=== PATIENT | female | born 1955 | race Caucasian/White ===

== ENCOUNTER 2022-01-15 16:43 | Outpatient (CLI) | payer MEDICARE, SELFPAY ==
[2022-01-15 10:18] LABS: Albumin* 4.5 g/dL (3.3-5.0)
[2022-01-15 10:19] LABS: Chloride* 101 mmol/L (96-114); Potassium* 4.2 mmol/L (3.6-5.1); Sodium* 140 mmol/L (135-149)
[2022-01-15 10:21] LABS: Aspartate Amino Transferase* 29 U/L (12-35); Bilirubin Total* 1.3 mg/dL (0.1-1.5); Blood Urea Nitrogen* 21 mg/dL (7-30); Carbon Dioxide* 31 mmol/L (20-32); Cholesterol* 202 mg/dL (90-199); Creatinine* 0.6 mg/dL (0.5-1.5); Estimated Glomerular Filt Rate 98 ml/min; Glucose* 116 mg/dL (60-115); Total Protein* 7.2 g/dL (6.0-8.3)
[2022-01-15 10:22] LABS: Alanine Aminotransferase* 23 U/L (4-35); Alkaline Phosphatase* 86 U/L (40-150); Calcium* 9.6 mg/dL (8.4-10.6); HDL Cholesterol* 62 mg/dL (>=50); LDL Cholesterol Calculated 118 mg/dL (<100); Triglycerides* 108 mg/dL (40-149)
[2022-01-15 10:28] LABS: Vitamin D 25 Hydroxy* 50 ng/mL (30-80)
== END 2022-01-15 16:44 | disposition home or self-care (01) ==
PROVIDERS: PCP Family Medicine; Visit Provider Family Medicine
DX: Z01.419 Encounter for gynecological examination (general) (routine) without abnormal findings (principal); E55.9 Vitamin D deficiency, unspecified; E78.5 Hyperlipidemia, unspecified; I10 Essential (primary) hypertension
CPT/HCPCS: 80053; 80061; 82306

== ENCOUNTER 2022-02-26 08:32 | Day surgery (SDC) | payer MEDICARE, SELFPAY ==
[2022-02-26] VITALS (11 sets, daily range): BP systolic 127–155; BP diastolic 79–90; PULSE 50–67; RESP 16; TEMP 36.1–36.4; O2SAT 95–100; BMI 29.0
[2022-02-26] MEDS: BUPIVACAINE 0.5%/EPINEPHRINE 0.9 MG (30.9 ML) INJECTION (06:00)
[2022-02-26] MEDS: LACTATED RINGERS 1000 ML 1,000 ML 100 ML IV (09:00)
[2022-02-26] MEDS: SODIUM CHLORIDE 0.9 % (FLUSH) 10 ML SYRINGE IVF (09:00)
[2022-02-26] MEDS: OXYMETAZOLINE 0.05% NASAL SPRAY 2 SPRAY NOSTRIL-B (09:00)
[2022-02-26] MEDS: COCAINE HCL 4 % 4 ML SOLUTION NOSTRIL-R ×2 (10:09→10:10)
--- NOTE | 2022-02-26 10:30 | SUR.OPER ---
Surgeon reported a tooth implant fell out during surgery. The tooth was located and removed.
[2022-02-26] MEDS: MUPIROCIN 1 GM PACKET 1 APPLIC TOPICAL (10:40)
--- NOTE | 2022-02-26 10:53 | W.ANESCHARGE ---
Anesthesia Charges Start Date/Time Anesthesia Start Date: 02/26/22 Anesthesia Start Time: 09:54 Stop Date/Time Anesthesia Stop Date: 02/26/22 Anesthesia Stop Time: 10:50 Summary Emergency: No
--- NOTE | 2022-02-26 10:55 | W.PM.ENTPROC ---
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 The nose was injected and decongested. I also injected the right upper gingiva. The nose was then inspected and there was a single large polyp extruding from the right middle meatus. This was removed with the assistance of a 0 degree endoscope. I was unable to completely remove all polypoid tissue from the maxillary sinus transnasally. Needlepoint cautery was used to incise the right upper gingiva posterior to the right canine. Dissection was carried down to the face of the right maxillary sinus. The mucosa overlying this was and muscle overlying this was elevated with great care taken to avoid the infraorbital nerve. A trocar is used to enter the cyst maxillary sinus which was quite easy to do. I a bone biter was then used to enlarge the opening. A [place] elevator was then used to further remove mucosa from all surfaces of the sinus. There is a large amount of infected and polypoid mucosa. Sinus was cleaned under procedure. There is a very large opening into the nose. The gingival incision was closed with interrupted 4-0 Vicryl sutures. The posterior 3 mm was left open to facilitate drainage. A Merocel pack soaked in Bactroban was placed overlying the middle meatus transnasally. The patient opted well was taken recovery in satisfactory condition. Blood loss during procedure was less than 25 mL. No complications Surgeon: Royce Hull MD
== END 2022-02-26 12:20 | disposition home or self-care (01) ==
PROVIDERS: PCP Family Medicine; Visit Provider Otolaryngology
PROC: (CPT 31231; principal; 2022-02-26 10:30)
DX: J32.0 Chronic maxillary sinusitis (principal); J33.8 Other polyp of sinus
CPT/HCPCS: 31237; 00170; 88305; A9270; J0330; J1100; J2405; J2704; J3010; J7120

== ENCOUNTER 2023-05-04 08:35 | Outpatient (CLI) | payer MEDICARE, SELFPAY ==
--- OUTSIDE RECORDS SUMMARY | 2023-05-09 20:44 | XMS_ITS ---
Author Name Unknown Organization [facility] Address [address] [place] [address] Care Team Providers Care Flexible Nanny Name Role Phone Unavailable Unavailable Unavailable Surgery Details Not on file Complications Check Surgery Details section. Procedure Estimated Blood Loss Check Surgery Details section. Procedure Findings Check Surgery Details section. Procedure Specimens Taken Check Surgery Details section.
--- OUTSIDE RECORDS SUMMARY | 2023-05-09 20:44 | XMS_ITS | Data Portability ---
Author Name Unknown Address [address] [place] [address] Phone [phone] Organization [place] [facility], [employer] Address [address] [place] [address] Assessment Encounter Date Assessment Date Assessment LastModified by Organization Details LastModified Time 08/04/2022 08/04/2022 Informed the patient at this time her diagnosis as detailed down below. The patient was informed of my recommendation of undergoing a phenol and alcohol procedure to the medial border of the right Hallux, however I recommended we wait until she returns from [place]. The patient was agreeable to this and we will re appoint this patient after [place] for the procedure. vishal Not available 08/04/2022 10:16:33 09/03/2022 09/03/2022 Performed a phenol and alcohol procedure to the right and left Hallux nail as previously documented. Patient will be seen in 2 weeks for a recheck and was given after care instructions. Not available 09/03/2022 10:28:04 09/17/2022 09/17/2022 Patient was informed that she has well healing phenol and alcohol procedures and there is no evidence of cardinal signs of infection at this time. She was instructed to continue soaking until resolution of drainage and will be seen on a PRN basis moving forward. Not available 09/17/2022 10:39:25 Plan of Treatment Reminders Order Date Submit Date Provider Last Modified By Organization Details Last Modified Time Details Appointments None record ed. Lab None record ed. Referral None record ed. Procedures None record ed. Surgeries None record ed. Imaging None record ed. Medication Orders None record ed. Patient TargetsNo targets recorded. Patient InstructionsNo instructions recorded. Reason for Referral None Reported. Procedures Surgical History Date Name Laterality Status Provider Name and Address Organization Details Recorded Time NAIL PROCEDURE DR Juarez completed Eliel Bell, DPM [address] [place], [phone], [facility] - [facility] 09/03/2022 10:27:57 Imaging Results None recorded. Procedure Notes None recorded. Medical Equipment None Reported. Allergies No known drug allergies Medications Name Sig Start Date Stop Date Status Note LastModified by Organization Details LastModified Time cyclobenzapr ine 10 mg tablet TAKE 1 TABLET BY MOUTH AT BEDTIME NEEDED FOR MUSCLE SPASM active Not Available Not Available No t Available latanoprost 0.005 % eye drops INSTILL 1 DROP IN RIGHT EYE AT BEDTIME active Not Available Not Available N ot Available gabapentin 600 mg tablet TAKE 1 TABLET BY MOUTH THREE TIMES DAILY active Not Available Not Available Not Available ibuprofen 800 mg tablet active Not Available Not Available Not Available clonazepam 1 mg tablet TAKE 1 TABLET BY MOUTH AT BEDTIME NEEDED FOR RESTLESS LEG SYNDROME active Not Available Not Available No t Available prednisolone acetate 1 % eye drops,suspen monty SHAKE LIQUID AND INSTILL 1 DROP IN LEFT EYE FOUR TIMES DAILY active Not Available Not Available No t Available lisinopril 20 mg-hydrochlo rothiazide 25 mg tablet TAKE 1 TABLET BY MOUTH DAILY active Not Available Not Available Not Available timolol maleate 0.5 % eye drops INSTILL 1 DROP IN BOTH EYES EVERY MORNING active Not Available Not Available No t Available pramipexole 1.5 mg tablet active Not Available Not Available Not Available moxifloxacin 0.5 % eye drops ADMINISTER 1 DROP INTO OPERATIVE EYE FOUR TIMES DAILY STARTING THE DAY BEFORE SURGERY active Not Available Not Available No t Available rosuvastatin 10 mg tablet TAKE 1 TABLET BY MOUTH EVERY DAY active Not Available Not Available No t Available cholecalcife rol (vitamin D3) 50 mcg (2,000 unit) capsule TAKE 1 CAPSULE BY MOUTH EVERY DAY active Not Available Not Available No t Available Osteo Bi-Flex active Not Available Not Available Not Available Flowflex COVID-19 Antigen Home Test kit use as directed active Not Available Not Available No t Available Vitals Date Recorded Body height Body mass index (BMI) Body weight Provider Name and Address Organization Details Last Updated DateTime 08/04/2022 170.18 cm 28.2 kg/m2 86405.63 g JAMSHID Liu - [facility] 08/04/2022 09:58:33 Social History None recorded. Functional Status None recorded. Mental Status None recorded. Family History Nothing Reported. Medical History No medical history recorded. Gynecological HistoryNo gynecological history recorded. Obstetrics History GPAL:G 0 P 0 0 0 0 Past Encounters Encounter ID Performer Location Encounter Start Date Encounter Closed Date Diagnosis/Indication [id number] [facility] [address] [place] [address] [address] [place] [address] 08/04/2022 09:57:48 08/05/2022 09:57:00 Ingrowing nail [id number] Eliel Bell [facility] [address] [place] [address] 09/03/2022 09:48:56 09/03/2022 11:28:28 Ingrowing nail [id number] Eliel Bell [facility] [address] [place] [address] 09/17/2022 10:05:12 09/20/2022 10:20:21 Ingrowing nail Health Concerns Section Related Observation LastModified by Organization Detai ls LastModified Time None Recorded Concern Status LastModified by Organization Details LastModified Time None Recorded Advance Directives Directive None Recorded Payers Encounter Date Sequence Insurance Name Policy Number Policy [place] Covered Member ID [place]itting[place] Member ID Guarantor Name 09/17/2022 1 [place] [employer] Kate K Silvanoen [id number] Kate K Grazyna 09/17/2022 2 [employer] (MEDICARE SUPPLEMENT) Kate Geronimo [id number] Kate K Grazyna 09/03/2022 1 [place] [employer] Kate K Nordhausen [id number] Kate K Nordhausen 09/03/2022 2 [employer] (MEDICARE SUPPLEMENT) Kate Grazyna [id number] Kate K Nordhausen 08/04/2022 1 [place] [employer] Kate Ed Nordhausen [id number] Kate K Nordhausen 08/04/2022 2 [employer] (MEDICARE SUPPLEMENT) Kate Grazyna [id number] Kate Ed Silvanoen Notes Date Note Type Note Provider Name and Address Organization Details Recorded Time 08/04/2022 text/html HPI Notes: Hao chavez is a 66 year old female new patient who presents to clinic today for right great toe pain that has been on and off for about 2 years in duration. The patient mentions that this pain is located on the inside border on the right great toe nail and she denies any history of infection. Patient mentions that she is going to [facility] for a few weeks and is interested in treatment options. Eliel Bell DPM [address] [place] [address], [phone], [facility] 08/04/2022 10:16:37 09/03/2022 text/html HPI Notes: Hao chavez is a 66 year old female established patient who presents today for a phenol and alcohol procedure to the right Hallux nail. Patient was previously informed about the procedure on 08/04/2022 and was instructed to wait until she was back from her [place] vacation. Patient denies any changes to her medical history since last being seen. Eliel Bell DPM [address] [place] [address], [phone], [facility] 09/03/2022 10:28:22 09/17/2022 text/html HPI Notes: Hao chavez is a 66 year old female established patient who presents to clinic today for re evaluation of bilateral phenol and alcohol procedures performed to the bilateral borders of bilateral Hallux digits on 09/03/2022. The patient mentions that she has adhered to the previous recommendations without difficulty and she has noticed significant symptom reduction. Eliel Bell DPM [address] [place] [address], [phone], [facility] 09/17/2022 10:39:29 OBGyn Episode No OBEpisode recorded.
--- OUTSIDE RECORDS SUMMARY | 2023-05-09 20:44 | XMS_ITS | Referral Summary ---
Author Name Unknown Organization [facility] Address [address] [place] [address] Care Team Providers Care Bond Trader Name Role Phone Elsewhere, Pcp Primary Care Provider Unavailabl e Source Comments Patient records contain information from all sites at [facility]. For routine questions regarding patient records, call [phone] during business hours, M-F 8:00 AM - 5:00 PM Central Time. Record requests for emergency care only can be directed to [phone] at any time.[facility] Encounters Date Type Department Care Team Description 03/16/2023 Orders Only Department of Ophthalmology in [place], [place] [address] [place] [address] Mari Olmstead Primary Open-Angle Glaucoma Severe Stage Bilateral (Primary Dx) 03/14/2023 10:45 AM BANK REPRESENTATIVE Procedure visit Department of Ophthalmology in [place], [place] [address] [place] [address] Danial Jeffries M.D., Ph.D. 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 Primary Open-Angle Glaucoma Severe Stage Bilateral (Primary Dx) 03/14/2023 8:30 AM BANK REPRESENTATIVE Ancillary Procedure Department of Ophthalmology in [place], [place] [address] [place] [address] Danial Jeffries M.D., Ph.D. Primary Open-Angle Glaucoma Severe Stage Bilateral 03/14/2023 8:00 AM BANK REPRESENTATIVE Ancillary Procedure Department of Ophthalmology in [place], [place] [address] [place] [address] Danial Jeffries M.D., Ph.D. Primary Open-Angle Glaucoma Severe Stage Bilateral 02/24/2023 Clinical Communication Department of Ophthalmology in [place], [place] [address] [place] [address] Danial Jeffries M.D., Ph.D. from Last 3 Months Allergies No known active allergies Medications Medication Sig Dispensed Refills Start Date End Date Status lisinopril-hydroCHLOR Othiazide (PRINZIDE,ZESTORETIC) 20-25 mg per tablet Take 1 tablet by mouth daily. 0 09/17/2016 Active LORazepam (ATIVAN) 1 mg tablet Take 1 tablet by mouth daily. 0 08/13/2015 Active pramipexole (MIRAPEX) 0.5 mg tablet Take 2 tablets by mouth daily. 0 08/13/2015 Active peg 400-propylene glycol, PF, (SYSTANE) 0.4-0.3 % ophthalmic solution Administer 1 drop into both eyes as needed. 0 11/20/2015 Active prednisoLONE acetate (PRED FORTE) 1 % ophthalmic suspension Administer 1 drop into the left eye 4 (four) times a day. Starting 3 days prior to surgery 5 mL 2 11/13/2021 Active Additional Information Patient not taking.Reported on 03/14/2023 cholecalciferol (VITAMIN D3) 50 mcg (2,000 Unit) capsule Take by mouth daily. 0 11/24/2021 Active gabapentin (NEURONTIN) 600 mg tablet Take 600 mg by mouth 3 (three) times a day. 0 11/10/2021 Active clonazePAM (KlonoPIN) 1 mg tablet Take 1 mg by mouth at bedtime as needed. 0 10/06/2021 Active rosuvastatin (CRESTOR) 10 mg tablet Take 10 mg by mouth daily. 0 12/07/2021 Active HYDROcodone-acetamino phen (NORCO) 5-325 mg per tablet 0 01/07/2022 Active prednisoLONE acetate (PRED FORTE) 1 % ophthalmic suspension Administer 1 drop into the left eye 4 (four) times a day. Start 3 days before surgery 10 mL 6 01/29/2022 Active Additional Information Patient not taking.Reported on 10/06/2022 ondansetron ODT (ZOFRAN-ODT) 4 mg disintegrating tablet 4 mg every 8 (eight) hours. 0 02/26/2022 Active oxyCODONE (ROXICODONE) 5 mg immediate release tablet Take 5 mg by mouth every 4 (four) hours as needed. for pain 0 02/26/2022 Active glucosamine/chondr walker A sod (glucosamine-chondroi tin) 1,500-1,200 mg/30 mL liquid 2 tablets. 0 01/15/2022 Active prednisoLONE acetate (PRED FORTE) 1 % ophthalmic suspension Administer 1 drop into the left eye 4 (four) times a day. 15 mL 3 04/21/2022 Active Additional Information Patient not taking.Reported on 10/06/2022 timolol (TIMOPTIC) 0.5 % ophthalmic solution INSTILL 1 DROP IN BOTH EYES EVERY MORNING 10 mL 3 05/04/2022 Active Additional Information Patient taking differently: right eye, Reported on 05/17/2022 moxifloxacin (VIGAMOX) 0.5 % ophthalmic solution Administer 1 drop into the left eye 4 (four) times a day. 1 drop four times a day to the operative eye starting the day before surgery 3 mL 1 05/17/2022 Active Additional Information Patient not taking.Reported on 10/06/2022 latanoprost (XALATAN) 0.005 % ophthalmic solution INSTILL 1 DROP IN BOTH EYES AT BEDTIME 10 mL 11 12/28/2022 Active dorzolamide-timoloL (COSOPT) 22.3-6.8 mg/mL ophthalmic solution Administer 1 drop into both eyes 2 (two) times a day. 15 mL 3 03/14/2023 03/13/2024 Active Active Problems Problem Noted Date Diagnosed Date Age Related Nuclear Cataract Right Eye 0 Overview: Added automatically from request for surgery [id number] Age Related Nuclear Cataract Left Eye 05/28/2019 Overview: Added automatically from request for surgery [id number] Hypertension Essential Primary 09/19/2017 Hypercholesterolemia 09/19/2017 Restless Leg Syndrome 09/19/2017 Pain Low Back Chronic 09/19/2017 Primary Open-Angle Glaucoma Severe Stage Bilater al 09/15/2017 Anxiety Generalized Disorder Social History Tobacco Use Types Packs/Day Years Used Date Smoking Tobacco: Former Smokeless Tobacco: Never Tobacco Cessation:Counseling Given: Not Answered Alcohol Use Standard Drinks/Week Comments Yes 4 (1 standard drink = 0.6 oz pur e alcohol) Social Connection and Isolation Panel [NHANES] A nswer Date Recorded In a typical week, how many times do you talk on the phone with family, friends, or neighbors? Twice a week 07/09/19 20 How often do you get togethe r with friends or relatives? Twice a week 07/09/2019 How often do you attend [facility] or [facility] services? 1 to 4 times per year 07/09/2019 Do you belong to any clubs o r organizations such as yazidi groups, unions, fraternal or athletic groups, or school groups? No 07/09/2019 How often do you attend meet ings of the clubs or organizations you belong to? Patient declined 07/09/2019 Are you , , di vorced, , never , or living with a partner? Never 07/09/2019 AUDIT-C Answer Date Recorded Q1: How often do you have a drink containing alc ohol? 2-3 times a week 07/09/2019 Q2: How many drinks containi ng alcohol do you have on a typical day when you are drinking? 1 or 2 07/09/2019 Q3: How often do you have si x or more drinks on one occasion? Less than monthly 07/09/2019 [facility] Occupat ional Health - Occupational Stress Questionnaire Answer Date Recorded Do you feel stress - tense, restless, nervous, or anxious, or unable to sleep at night because your mind is troubled all the time - these days? Only a little 07/09/2019 Exercise Vital Sign Answer Date Recorde d On average, how many days pe r week do you engage in moderate to strenuous exercise (like a brisk walk)? 5 days 07/09/2019 On average, how many minutes do you engage in exercise at this level? 50 min 07/09/2019 Hunger Vital Sign Answer Date Recorded Within the past 12 months, y ou worried that your food would run out before you got the money to buy more. Never true 07/09/19 20 Within the past 12 months, t he food you bought just didn't last and you didn't have money to get more. Never true 07/09/2019 PRAPARE - Transportation Answer Date Re corded In the past 12 months, has l ack of transportation kept you from medical appointments or from getting medications? No 01/2020 In the past 12 months, has l ack of transportation kept you from meetings, work, or from getting things needed for daily living? No 07/09/2019 Nutrition Answer Date Recorded Nutrition: EVOO Fat Source Unknown 07/12 Nutrition: Servings of Fruits/Vegetables per Day Not on file 07/12/2022 Dental Answer Date Recorded Dental: Regular Dentist Unknown 07/13/19 Education Answer Date Recorded What is the highest level of school you have completed or the highest degree you have received? GED or equivalent 01/2020 Sex and Gender Information Value Date Recorded Sex Assigned at Female 09/29/2017 12:58 PM CDT Gender Identity Female 09/29/2017 12:58 PM CDT Sexual Orientation Lesbian or Griffiths 09/29/2017 12 :58 PM CDT Last Filed Vital Signs Vital Sign Reading Time Taken Comments Blood Pressure 134/85 01/20/2023 7:52 AM CDT Pulse 60 01/20/2023 7:52 AM CDT Temperature 36.9 ??C (98.4 ??F) 04/20/2022 8:52 AM CS T Respiratory Rate 15 04/20/2022 11:10 AM BANK REPRESENTATIVE Oxygen Saturation 96% 04/20/2022 11:10 AM BANK REPRESENTATIVE Inhaled Oxygen Concentration - - Weight 82.1 kg (181 lb) 01/20/2023 7:52 AM CDT Height 168.2 cm (5' 6.22) 01/20/2023 7:52 AM CD T Body Mass Index 29.02 01/20/2023 7:52 AM CDT Plan of Treatment Upcoming Encounters Date Type Department Care Team (Late st Contact Info) Description 07/06/2023 3:00 PM BANK REPRESENTATIVE Ancillary Procedure Department of Ophthalmology in [place], [place] [address] [place] [phone] Danial Jeffries M.D., Ph.D. [address] [place] [phone] 07/06/2023 3:30 PM BANK REPRESENTATIVE Office Visit Department of Ophthalmology in [place], [place] [address] [place] [phone] Danial Jeffries M.D., Ph.D. [address] [place] [phone] Medical Devices Implanted Type Area Ocean Freight Forwarder Device Identifier Shelf Expiration Date Model / Serial / Lot Michelle Wooten 9 - [id number] - [id number] Implanted:Qty : 1 on 04/20/2022 by Danial Jeffries M.D., Ph.D. at [facility] Bone or Tissue Left: Eye [employer] (Prev. Tissue [employer]) 08/11/2023 [id number] / [id number] / Hardware E.G. Pins/Screws/R ods-08/24/1989 Implanted: (Quantity not on file) Hardware e.g. pins/screws /rods Right: Shoulder Agustín Saldana 350 - [id number] - [id number] Implanted:Qty : 1 on 04/20/2022 by Danial Jeffries M.D., Ph.D. at [facility] Ocular (Eye) Implant Left: Eye [employer] (Previously AMARI) 10/21/2023 [id number] / [id number] / Lens Acr Sa60at Ant +18.5d - [id number] - [id number] Implanted:Qty : 1 on 07/03/2019 by Danial Jeffries M.D., Ph.D. at [facility] Ocular Lens Right: Eye Dinesh Aorato 01/30/2024 SA60AT.18 5 / [id number] / Lens Acr Sa60at Ant +20.5d - [id number] - [id number] Implanted:Qty : 1 on 09/26/2019 by Danial Jeffries M.D., Ph.D. at [facility] Gregorio/Gonda Ocular Lens [employer] 01/30/2024 SA60AT.20 5 / [id number] / Procedures Procedure Name Priority Date/Time Associated Diagnosis Comments YAG CAPSULOTOMY - OS - LEFT EYE Routine 03/14/2023 10:00 AM BANK REPRESENTATIVE Posterior Subcapsular Polar Age Related Cataract Left Eye OPHTHALMOLOGY IMAGE EXAM Routine 03/14/2023 8:05 AM BANK REPRESENTATIVE AUTOMATED VF - EXTENDED - OU - BOTH EYES Routine 03/14/2023 7:58 AM BANK REPRESENTATIVE Primary Open-Angle Glaucoma Severe Stage Bilateral AUTOMATED VF - EXTENDED - OU - BOTH EYES Routine 03/14/2023 7:41 AM BANK REPRESENTATIVE Primary Open-Angle Glaucoma Severe Stage Bilateral OPHTHALMOLOGY IMAGE EXAM Routine 03/14/2023 7:40 AM BANK REPRESENTATIVE from Last 3 Months Results * Yag Capsulotomy - OS - Left Eye (03/14/2023 10:00 AM BANK REPRESENTATIVE) Narrative OPHTHALMOLGY NON-IMAGING ORDERS - 03/14/2023 10:00 AM BANK REPRESENTATIVE Time Out Confirmed correct patient, procedure, site, and patient consented. Procedure Procedure was PI. Topical anesthesia was used. Laser Information The type of laser was yag. Total spots was 14. The energy was 1.50 millijoules. Post-op The patient tolerated the procedure well. There were no complications. The patient received written and verbal post procedure care education. Danial Jeffries M.D., Ph.D. [facility] OPHTHALMOLGY NON-IMAGING ORDERS * Visual Ariza (VF)-Ophthalmology Image Exam (03/14/2023 8:05 AM BANK REPRESENTATIVE) Only the most recent of2 resultswithin the time period is included. 03/14/2023 8:02 AM BANK REPRESENTATIVE Narrative IIMS - 03/14/2023 8:18 AM BANK REPRESENTATIVE This order has been created and auto-finalized to support the import of images acquired without order. The clinical documentation to support these images can be found on the encounter that produced images. Provider Not In System IMG NON RAD IMAGI NG PROCEDURES Performing Organization Address [facility] [[email or web address] de Phone Number IIMS NA * Automated VF - Extended - OU - Both Eyes (03/14/2023 7:58 AM BANK REPRESENTATIVE) Narrative OPHTHALMOLOGY IMAGING EXAM - 03/14/2023 9:33 AM BANK REPRESENTATIVE Right Eye Automated visual field device used was Zeiss. Strategy was RADHA. Threshold was 10-2. Eyelid was untaped. Left Eye Automated visual field device used was Zeiss. Strategy was RADHA. Threshold was 10-2. Eyelid was untaped. Notes See note from today. Danial Jeffries M.D., Ph.D. OPH VISUAL F IELD Performing Organization Address [facility] de Phone Number OPHTHALMOLOGY IMAGING EXAM * Automated VF - Extended - OU - Both Eyes (03/14/2023 7:41 AM BANK REPRESENTATIVE) Narrative OPHTHALMOLOGY IMAGING EXAM - 03/14/2023 9:33 AM BANK REPRESENTATIVE Right Eye Automated visual field device used was Zeiss. Strategy was RADHA. Threshold was 24-2. Eyelid was untaped. Left Eye Automated visual field device used was Zeiss. Strategy was RADHA. Threshold was 24-2. Eyelid was untaped. Notes See note from today. Danial Jeffries M.D., Ph.D. OPHTH VISUAL F IELD Performing Organization Address [facility] [[email or web address]] de Phone Number OPHTHALMOLOGY IMAGING EXAM from Last 3 Months Advance Directives For more information, please contact: [phone] Documents on File Type Date Recorded Patient Manager Engine Expl anation Advance Directives 05/20/2022 8:59 AM [facility] Care Teams Bond Trader Relationship Specialty Start Date End Date Elsewhere, Pcp PCP - General Internal Medicine 04/20/22
--- OUTSIDE RECORDS SUMMARY | 2023-05-09 20:44 | XMS_ITS | Clinical Summary ---
Author Name Unknown Organization [facility] Address [address] [place] [address] Care Team Providers Care Lifestyle Consultant Name Role Phone Elsewhere, Pcp Primary Care Provider Unavailabl e Source Comments Patient records contain information from all sites at [facility]. For routine questions regarding patient records, call [phone] during business hours, M-F 8:00 AM - 5:00 PM Central Time. Record requests for emergency care only can be directed to [phone] at any time.[facility] Allergies No known active allergies Medications Medication [...] Overview: Added automatically from request for surgery [id number] Age Related Nuclear Cataract Left Eye 05/28/2019 Overview: Added automatically from request for surgery [id number] Hypertension Essential Primary 09/19/2017 Hypercholesterolemia 09/19/2017 Restless Leg Syndrome 09/19/2017 Pain Low Back Chronic 09/19/2017 Primary Open-Angle Glaucoma Severe Stage Bilater al 09/15/2017 Anxiety Generalized Disorder Encounters Date Type Department Care Team Description 03/16/2023 Orders Only Department of Ophthalmology in [place], [place] [address] [place] [phone] Mari Olmstead Primary Open-Angle Glaucoma Severe Stage Bilateral (Primary Dx) 03/14/2023 10:45 AM PAINTER AND BODY MECHANIC APPRENTICE Procedure visit Department of Ophthalmology in [place], [place] [address] [place] [phone] Danial Jeffries M.D., Ph.D. 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 Primary Open-Angle Glaucoma Severe Stage Bilateral (Primary Dx) 03/14/2023 8:30 AM PAINTER AND BODY MECHANIC APPRENTICE Ancillary Procedure Department of Ophthalmology in [place], [place] [address] [place] [phone] Danial Jeffries M.D., Ph.D. Primary Open-Angle Glaucoma Severe Stage Bilateral 03/14/2023 8:05 AM PAINTER AND BODY MECHANIC APPRENTICE Ancillary Procedure Department of Ophthalmology 03/14/2023 8:00 AM PAINTER AND BODY MECHANIC APPRENTICE Ancillary Procedure Department of Ophthalmology in [place], [place] [address] [place] [phone] Danial Jeffries M.D., Ph.D. 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 from Last 3 Months Family History Medical History Relation Name Comments Cataracts Father Amblyopia Neg Hx Blindness Neg Hx Glaucoma Neg Hx Macular degeneration Neg Hx Retinal degeneration Neg Hx Retinal detachment Neg Hx Strabismus Neg Hx Relation Name Status Comments Father Social History Tobacco Use Types Packs/Day Years [...] week 07/09/2019 How often do you attend chur ch or mandaeism services? 1 to 4 times per year 07/09/2019 Do you belong to any clubs o r organizations such as amish groups, unions, fraternal or athletic groups, or [...] on one occasion? Less than monthly 07/09/2019 [facility] [place] [facility] - Occupational Stress [...] T Respiratory Rate 15 04/20/2022 11:10 AM PAINTER AND BODY MECHANIC APPRENTICE Oxygen Saturation 96% 04/20/2022 11:10 AM PAINTER AND BODY MECHANIC APPRENTICE Inhaled Oxygen Concentration - - Weight 82.1 kg (181 lb) 01/20/2023 7:52 AM CDT Height 168.2 cm (5' 6.22) 01/20/2023 7:52 AM CD T Body Mass Index 29.02 01/20/2023 7:52 AM CDT Plan of Treatment Upcoming Encounters Date Type Department Care Team (Late st Contact Info) Description 07/06/2023 3:00 PM PAINTER AND BODY MECHANIC APPRENTICE Ancillary Procedure Department of Ophthalmology in [place], [place] [address] [place] [phone] Danial Jeffries M.D., Ph.D. [address] [place] [phone] 07/06/2023 3:30 PM PAINTER AND BODY MECHANIC APPRENTICE Office Visit Department of Ophthalmology in [place], [place] [address] [place] [phone] Danial Jeffries M.D., Ph.D. [address] [place] [phone] Health Maintenance Due Date Last Done Comments Bone Density Scan (Osteoporo sis Screen) 1953 CT Colonography 1953 Cologuard 1953 Colonoscopy 1953 Colorectal Cancer Screening 1953 Creatinine Level (Kidney Fun ction Test) 1953 FIT 1953 Fasting Glucose for Diabetes Screening 1953 Hepatitis C Screening 1953 Lipid (Cholesterol) Screening 1953 Mammogram 1953 Potassium Level 1953 Sodium Level 1953 Zoster Vaccines (2 of 3) 06/10/2015 04/15/2015 Pneumococcal vaccine (65+ ye ars) (2 of 2 - PPSV23 or PCV20) 10/17/2021 10/17/2020 Depression Screening (Annual PHQ-2) 05/02/2022 Fall Risk Screen (Annual) 05/02/2022 COVID-19 Vaccine (5 - 2022-2 4 season) 2022 10/13/2021, 05/21/2021, 07/29/2020, Additional history exists Office Visit for Blood Press ure Check / Re-check 01/21/2024 01/20/2023 DTaP,Tdap,and Td Vaccines (4 - Td or Tdap) 02/03/2030 02/04/2020, 05/14/2009, 05/28/2005 Cervical Cancer Screening Discontinued 10/03/2019, 06/2018 Influenza Vaccine Completed 01/26/2023, , 03/25/2021, Additional history exists Medical Devices Implanted Type Area Brake Specialist Device Identifier Shelf Expiration Date Model / Serial / Lot Michelle Wooten 9 - [id number] - [id number] Implanted:Qty : 1 on 04/20/2022 by Danial Jeffries M.D., Ph.D. at [facility] Bone or Tissue Left: Eye [employer] (Prev. Tissue [employer]) 08/11/2023 [id number] / [id number] / Hardware E.G. Pins/Screws/R ods-08/24/1989 Implanted: (Quantity not on file) Hardware e.g. pins/screws /rods Right: Shoulder Agustín Saldana 350 - [id number] - [id number] Implanted:Qty : 1 on 04/20/2022 by Danial Jeffries M.D., Ph.D. at [facility] Ocular (Eye) Implant Left: Eye [employer] (Previously [employer]) 10/21/2023 [id number] / [id number] / Lens Acr Sa60at Ant +18.5d - [id number] - [id number] Implanted:Qty : 1 on 07/03/2019 by Danial Jeffries M.D., Ph.D. at [facility] Ocular Lens Right: Eye [employer] 01/30/2024 SA60AT.18 5 / [id number] / Lens Acr Sa60at Ant +20.5d - [id number] - [id number] Implanted:Qty : 1 on 09/26/2019 by Danial Jeffries M.D., Ph.D. 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 OPHTHALMOLOGY IMAGE EXAM Routine 03/14/2023 8:05 AM PAINTER AND BODY MECHANIC APPRENTICE AUTOMATED VF - EXTENDED - OU - BOTH EYES Routine 03/14/2023 7:58 AM PAINTER AND BODY MECHANIC APPRENTICE Primary Open-Angle Glaucoma Severe Stage Bilateral AUTOMATED VF - EXTENDED - OU - BOTH EYES Routine 03/14/2023 7:41 AM PAINTER AND BODY MECHANIC APPRENTICE Primary Open-Angle Glaucoma Severe Stage Bilateral OPHTHALMOLOGY IMAGE EXAM Routine 03/14/2023 7:40 AM PAINTER AND BODY MECHANIC APPRENTICE from Last 3 Months Results * Yag Capsulotomy - OS - Left Eye (03/14/2023 10:00 AM PAINTER AND BODY MECHANIC APPRENTICE) Narrative OPHTHALMOLGY NON-IMAGING ORDERS - 03/14/2023 10:00 AM PAINTER AND BODY MECHANIC APPRENTICE Time Out Confirmed correct patient, procedure, site, and patient consented. Procedure Procedure was PI. Topical anesthesia was used. Laser Information The type of laser was yag. Total spots was 14. The energy was 1.50 millijoules. Post-op The patient tolerated the procedure well. There were no complications. The patient received written and verbal post procedure care education. Danial Jeffries M.D., Ph.D. [facility] OPHTHALMOLGY NON-IMAGING ORDERS * Visual Ariza (VF)-Ophthalmology Image Exam (03/14/2023 8:05 AM PAINTER AND BODY MECHANIC APPRENTICE) Only the most recent of2 resultswithin the time period is included. 03/14/2023 8:02 AM PAINTER AND BODY MECHANIC APPRENTICE Narrative IIMS - 03/14/2023 8:18 AM PAINTER AND BODY MECHANIC APPRENTICE This order has been created and auto-finalized to support the import of images acquired without order. The clinical documentation to support these images can be found on the encounter that produced images. Provider Not In System IMG NON RAD IMAGI NG PROCEDURES Performing Organization Address [facility] de Phone Number IIMS NA * Automated VF - Extended - OU - Both Eyes (03/14/2023 7:58 AM PAINTER AND BODY MECHANIC APPRENTICE) Narrative OPHTHALMOLOGY IMAGING EXAM - 03/14/2023 9:33 AM PAINTER AND BODY MECHANIC APPRENTICE Right Eye Automated visual field device used was Zeiss. Strategy was RADHA. Threshold was 10-2. Eyelid was untaped. Left Eye Automated visual field device used was [employer]. Strategy was RADHA. Threshold was 10-2. Eyelid was untaped. Notes See note from today. Danial Jeffries M.D., Ph.D. OPHTH VISUAL F IELD Performing Organization Address [facility] de Phone Number OPHTHALMOLOGY IMAGING EXAM * Automated VF - Extended - OU - Both Eyes (03/14/2023 7:41 AM PAINTER AND BODY MECHANIC APPRENTICE) Narrative OPHTHALMOLOGY IMAGING EXAM - 03/14/2023 9:33 AM PAINTER AND BODY MECHANIC APPRENTICE Right Eye Automated visual field device used was Zeiss. Strategy was RADHA. Threshold was 24-2. Eyelid was untaped. Left Eye Automated visual field device used was Zeiss. Strategy was RADHA. Threshold was 24-2. Eyelid was untaped. Notes See note from today. Danial Jeffries M.D., Ph.D. OPHTH VISUAL F IELD Performing Organization Address [facility] de Phone Number OPHTHALMOLOGY IMAGING EXAM from Last 3 Months Advance Directives For more information, please contact: [phone] Documents on File Type Date Recorded Patient Special Inspector Expl anation Advance Directives 05/20/2022 8:59 AM [facility] Care Teams Lifestyle Consultant Relationship Specialty Start Date End Date Elsewhere, Pcp PCP - General Internal Medicine 04/20/22
--- OUTSIDE RECORDS SUMMARY | 2023-05-09 20:45 | XMS_ITS | Encounter Summary ---
Author Name Unknown Organization [facility] Address [address] [place] [phone] Care Team Providers Care Boiler Operator Name Role Phone Elsewhere, Pcp Primary Care Provider Unavailabl e Reason for Visit * Reason Comments Med Refill Encounter Details Date Type Department Care Team (Late st Contact Info) Description 12/28/2022 Refill Department of Ophthalmology in [place], [place] [address] [place] [phone] Elsie Garcia O.D. [address] [place] [phone] Med Refill Social History Tobacco Use Types Packs/Day Years Used Date Smoking Tobacco: Former Smokeless Tobacco: Never Alcohol Use Standard Drinks/Week Comments Yes 4 [...] often do you attend chur ch or hoahaoism services? 1 to 4 times per year 07/09/2019 Do you belong to any clubs o r organizations such as rastafari groups, unions, fraternal or athletic groups, or [...] on one occasion? Less than monthly 07/09/2019 [facility] - Occupational Stress Questionnaire Answer Date Recorded [...] or Griffiths 09/29/2017 12 :58 PM CDT documented as of this encounter Plan of Treatment Upcoming Encounters Date Type Department Care Team (Late st Contact Info) Description 07/06/2023 3:00 PM CERTIFIED NURSES' AIDE Ancillary Procedure Department of Ophthalmology in [place], [place] [address] [place] [phone] Danial Jeffries M.D., Ph.D. [address] [place] [phone] 07/06/2023 3:30 PM CERTIFIED NURSES' AIDE Office Visit Department of Ophthalmology in [address] [phone] Danial Jeffries M.D., Ph.D. [address] [place] [phone] documented as of this encounter Visit Diagnoses Not on filedocumented in this encounter Care Teams Boiler Operator Relationship Specialty Start Date End Date Elsewhere, Pcp PCP - General Internal Medicine 04/20/22 documented as of this encounter
--- OUTSIDE RECORDS SUMMARY | 2023-05-09 20:45 | XMS_ITS | Encounter Summary ---
Author Name Unknown Organization [facility] Address [address] [place] [address] Care Team Providers Care Carpenter Ship Name Role Phone Elsewhere, Pcp Primary Care Provider Unavailabl e Encounter Details Date Type Department Care Team (Latest Contact Info) Description 02/24/2023 Clinical Communication Department of Ophthalmology in [place], [place] [address] [place] [address] Danial Jeffries M.D., Ph.D. [address] [place] [phone] Social History Tobacco Use Types Packs/Day Years [...] often do you attend chur ch or baptism services? 1 to 4 times per year 07/09/2019 Do you belong to any clubs o r organizations such as holiness groups, unions, fraternal or athletic groups, or [...] on one occasion? Less than monthly 07/09/2019 [facility] - Occupational Stress Questionnaire Answer Date [...] st Contact Info) Description 07/06/2023 3:00 PM INVENTORY ASSOCIATE AND DRIVER Ancillary Procedure Department of Ophthalmology in [place], [place] [address] [place] [phone] Danial Jeffries M.D., Ph.D. [address] [place] [phone] 07/06/2023 3:30 PM INVENTORY ASSOCIATE AND DRIVER Office Visit Department of Ophthalmology in [place], [place] [address] [place] [phone] Danial Jeffries M.D., Ph.D. [address] [place] [phone] documented as of this encounter Visit Diagnoses Not on filedocumented in this encounter Care Teams Carpenter Ship Relationship Specialty Start Date End Date Elsewhere, Pcp PCP - General Internal Medicine 04/20/22 documented as of this encounter
--- OUTSIDE RECORDS SUMMARY | 2023-05-09 20:45 | XMS_ITS | Encounter Summary ---
Author Name Unknown Organization [facility] Address [address] [place] [phone] Care Team Providers Care Ticket Manager Name Role Phone Elsewhere, Pcp Primary Care Provider Unavailabl e Reason for Referral * Outpatient (Routine) - Authorized Specialty Diagnoses / Procedures Referred By Pepper collins Referred To Contact Ophthalmology Danial Jeffries M.D., Ph.D. [address] [place] [phone] [facility] Referral ID Status Reason Start Date Expiration Date V isits Requested Visits Authorized [id number] Authorized 03/14/2023 03/13/2026 1 1 Scheduling Instructions VTD OU SKIMMER Reason for Visit * Reason Comments Glaucoma * Outpatient (Routine) - Closed Specialty Diagnoses / Procedures Referred By Pepper collins Referred To Contact Ophthalmology Danial Jeffries M.D., Ph.D. [address] [place] [phone] [facility] Referral ID Status Reason Start Date Expiration Date Visits Re quested Visits Authorized [id number] Closed 10/06/2022 10/05/2025 1 1 Encounter Details Date Type Department Care Team (Latest Contact Info) Description 03/14/2023 10:30 AM VAT SKIMMER Office Visit Department of Ophthalmology in [place], [place] [address] [place] [phone] Danial Jeffries M.D., Ph.D. [address] [place] [address], [place] [phone] Primary Open-Angle Glaucoma Severe Stage Bilateral (Primary Dx) Social History Tobacco Use Types Packs/Day Years Used Date Smoking Tobacco: Former Smokeless Tobacco: Never Alcohol Use Standard Drinks/Week Comments Yes 4 (1 standard drink = 0.6 oz pur e alcohol) Social Connection and Isolation Panel [NHANES] A nswer Date Recorded In a typical week, how many times do you talk on the phone with family, friends, or neighbors? Twice a week 07/09/19 How often do you get togethe r with friends or relatives? Twice a week 07/09/2019 How often do you attend chur or hinduism services? 1 to 4 times per year [...] on one occasion? Less than monthly 07/09/2019 [facility] - Occupational Stress [...] PM CDT documented as of this encounter Progress Notes * Danial Jeffries M.D., Ph.D. - 03/14/2023 10:30 AM CST # Low tension glaucoma L>>R Advanced both CCT 470/472 (post LASIK); target very low teens Brimonidine allergy S/p trabeculectomy right eye (09/19/17 - Dr. Saenz) S/p traeculectomy left eye (08/24/17 - Dr. Saenz) Tmax prior to trabeculectomy 15/ s/p IN fenestrated baerveldt, left eye, 04/20/2022 IOP acceptable right, excellent left She is having some diplopia - intermittent - she she will let us know - Provide Rx IOP acceptable Continue current medications Return 4-5 mo 24-2 and 10-2 and dilation in case we need to consider YAG cap Will obtain ORA today 03/2023 VF (RADHA) Right - Inf arc, stable; Left - Sup arc, stable VF (10-2) Right - Inf arc, fluctuation, likely stable; Left - Sup arc, stable However, she has a probable subjective progression of her scotoma in the left since tube placement - however on exam there is significant PCO Discussed r/b/a to YAG cap left, pt wishes to proceed Restart Cosopt both eyes Stop timolol right Return 1 month with REFR and dilation for possible YAG cap right Glaucoma EYE DROPS RIGHT: Latanoprost QHS, timolol qam LEFT: Latanoprost QHS # Ptosis, 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 SKIMMER documented in this encounter Plan of Treatment Upcoming Encounters Date Type Department Care Team (Late st Contact Info) Description 07/06/2023 3:00 PM VAT SKIMMER Ancillary Procedure Department of Ophthalmology in [place], [place] [address] [place] [phone] Danial Jeffries M.D., Ph.D. [address] [place] [phone] 07/06/2023 3:30 PM VAT SKIMMER Office Visit Department of Ophthalmology in [place], [place] [address] [place] [phone] Danial Jeffries M.D., Ph.D. [address] [place] [phone] Scheduled Referrals Name Type Priority Associated Diagnoses Order Schedule Ophthalmology office visit (clinic) Outpatient Referral Routine Expected: 04/13/2023, Expires: 06/14/2024 documented as of this encounter Visit Diagnoses Diagnosis Primary Open-Angle Glaucoma Severe Stage Bilateral- Primary documented in this encounter Care Teams Ticket Manager Relationship Specialty Start Date End Date Elsewhere, Pcp PCP - General Internal Medicine 04/20/22 documented as of this encounter
--- OUTSIDE RECORDS SUMMARY | 2023-05-09 20:45 | XMS_ITS | Encounter Summary ---
Author Name Unknown Organization [facility] Address [address] [place] [address] Care Team Providers Care Medical Dosimetrist Name Role Phone Elsewhere, Pcp Primary Care Provider Unavailabl e Reason for Visit * Reason Comments Restless Legs * Appointment Request (Routine) - Closed Specialty Diagnoses / Procedures Referred By Contac t Referred To Contact Neurology Referral ID Status Reason Start Date Expiration Date Visits Re quested Visits Authorized [id number] Closed 11/11/2022 11/11/2023 1 1 Encounter Details Date Type Department Care Team (Latest Contact Info) Description 01/20/2023 8:00 AM CDT Comprehensive Visit Department of Neurology in [place], [place] [address] [phone] Magen Sommer M.D. [address], [place] [phone] Restless Leg Syndrome (Primary Dx) Social History Tobacco Use Types [...] week 07/09/2019 How often do you attend [facility] or temple services? 1 to 4 times per year [...] on one occasion? Less than monthly 07/09/2019 [facility]at ional Health - Occupational Stress [...] Answer Date Recorded Dental: Regular Dentist Unknown 03/13/20 23 Education Answer Date Recorded What is the highest level of school you have completed or the highest degree you have received? GED or equivalent 01/2020 Sex and Gender Information Value Date Recorded Sex Assigned at Female 09/29/2017 12:58 PM CDT Gender Identity Female 09/29/2017 12:58 PM CDT Sexual Orientation Lesbian or Griffiths 09/29/2017 12 :58 PM CDT documented as of this encounter Last Filed Vital Signs Vital Sign Reading Time Taken Comments Blood Pressure 134/85 01/20/2023 7:52 AM CDT Pulse 60 01/20/2023 7:52 AM CDT Temperature - - Respiratory Rate - - Oxygen Saturation - - Inhaled Oxygen Concentration - - Weight 82.1 kg (181 lb) 01/20/2023 7:52 AM CDT Height 168.2 cm (5' 6.22) 01/20/2023 7:52 AM CD T Body Mass Index 29.02 01/20/2023 7:52 AM CDT documented in this encounter Consult Notes * Magen Sommer M.D. - 01/20/2023 8:00 AM CDT SUBJECTIVE CHIEF COMPLAINT / REASON FOR VISIT Kate Geronimo is a 67 y.o. female who presents for evaluation of Restless Legs. Referring provider outside provider HISTORY OF PRESENT ILLNESS Kate Geronimo 67-year-old female with a history of hypertension, hypercholesterolemia, anxiety, outside diagnosis of restless legs syndrome who is referred to [facility] for the latter. Ms. Geronimo presents alone. The history is somewhat difficult to pin down accurately; however, she does note that her symptoms date back some 10-15 years. She notes that she would initially have acrawling sensation in her legs and a desire to move the legs when sitting down for prolonged periods. If she got up and moved around, her symptoms would essentially resolve. The diagnosis of restlesslegs syndrome was made through her primary care team. She was initiated on Mirapex, and over the years, additional medications including gabapentin 3 times a day as well as Klonopin at bedtime have been added to help with her symptoms. She states that with her current regimen, her symptoms are okay. She does get bothered at times when she has to sit on an airplane or some other area for a prolonged period of time, particularly if this is earlier in the day before her 1st dose of Mirapex, which tends to occur midafternoon. She has not noticed a ton of augmentation. I do not see any recent ferritin or other iron studies. She has not taken iron supplement. REVIEW OF SYSTEMS: REVIEW OF SYSTEMS OBJECTIVE PHYSICAL EXAM General: Female in her 60s, alert, attentive, no acute distress Vitals: BP 134/85, HR 60 Neuro: Alert and oriented. Cranial nerves activates symmetrically extraocular movements are intact.Full strength proximally distally in the upper and lower extremities. Coordination intact with eeelis-elpt-xhnvry testing without dysmetria. Reflexes normal and symmetric for age. Sensation preservedto vibration and temperature in the distal upper and lower extremities. Casual gait is normal. For details of the neurologic examination, please see the neurologic examination form. ASSESSMENT / PLAN #1 Suspect Restless Leg Syndrome Fairly difficult history. It is difficult to be 100% certain we are dealing with restless legs syndrome but certainly the symptoms do seem largely consistent with that. Given her current regimen is managing her symptoms relatively affectively, I would not make any significant changes to her regimencurrently. I did discuss with her obtaining a ferritin as well as other iron studies to ensure thatshe does not have low iron stores in the body. If this were found to be the case, then iron supplementation with Vitron-C or other iron supplement could certainly be completed through her primary care physician. Would likely need stool softener with that supplementation. Otherwise, would continue Mirapex and gabapentin as currently dosed. I did discuss that it may be beneficial for her to have a small dose of Mirapex on hand for certain events that she could anticipate such as being on an airplane, particularly earlier in the day before she takes her first Mirapex dose. She voiced understanding and is in agreement with the plan. We will let her know the results of testing when those are available. Questions answered to the best of my ability. Advance Care Planning Provided information booklet on ACP. I personally spent 25 minutes in care of the patient today. Time includes all face to face time, chart review, documentation, and coordination of care with other members of the care team. documented in this encounter Plan of Treatment Upcoming Encounters Date Type Department Care Team (Late st Contact Info) Description 07/06/2023 3:00 PM TURNER OFF Ancillary Procedure Department of Ophthalmology in [place], [place] [address] [place] [phone] Danial Jeffries M.D., Ph.D. [address] [place] [phone] 07/06/2023 3:30 PM TURNER OFF Office Visit Department of Ophthalmology in [place], [place] [address] [place] [phone] Danial Jeffries M.D., Ph.D. [address] [place] [phone] documented as of this encounter Results * Iron and Total Iron-Binding Capacity (01/20/2023 8:52 AM CDT) Iron 68 35 - 145 mcg/dL 01/20/2023 4:00 PM CDT AUST Total Iron Binding Capacity 295 250 - 400 mcg/dL 01/20/2023 4:00 PM CDT AUST Percent Saturation 23 14 - 50 % 01/20/2023 4:00 PM CDT AUST Blood (Blood, Venous) 01/20/2023 8:52 AM CDT 01/20/2023 4:00 PM CDT Magen Sommer M.D. LAB BLOOD ADD-ON [facility] [address] [place] [address], [facility] AUST [facility] [address] [place] [address] * Ferritin (01/20/2023 8:52 AM CDT) Ferritin, S 147 11 - 328 mcg/L 01/20/2023 10:44 AM CDT OWAT Comment: Biotin has been identified by the exchange consultant as a potential interfering substance. Higher concentrations of biotin may be found in multivitamins, hair/nail supplements, and workout supplements. If the result does not match clinical observations, repeat testing after patient refrains from the use of supplements for at least 12 hours. Blood (Blood, Venous) 01/20/2023 8:52 AM CDT 01/20/2023 8:53 AM CDT Magen Sommer M.D. LAB BLOOD ADD-ON [facility] [address] [place] [address], [facility] OW[facility] [place] [address] [place] [address] documented in this encounter Visit Diagnoses Diagnosis Restless Leg Syndrome- Primary documented in this encounter Care Teams Medical Dosimetrist Relationship Specialty Start Date End Date Elsewhere, Pcp PCP - General Internal Medicine 04/20/22 documented as of this encounter
--- OUTSIDE RECORDS SUMMARY | 2023-05-09 20:45 | XMS_ITS | Encounter Summary ---
Author Name Unknown Organization [facility] Address [address] [place] [address] Care Team Providers Care Rules Examiner Name Role Phone Elsewhere, Pcp Primary Care Provider Unavailabl e Encounter Details Date Type Department Care Team (Latest Contact Info) Description 01/20/2023 8:15 AM CDT - 01/20/2023 11:59 PM CDT Hospital Encounter Department of Laboratory Medicine in [place], [place] [address] [phone] Magen Sommer M.D. [address] [place] [phone] Restless Leg Syndrome Discharge Disposition: Home or Self Care Social History Tobacco Use Types Packs/Day Years [...] often do you attend chur ch or hinduism services? 1 to 4 times per year 07/09/2019 Do you belong to any clubs o r organizations such as religious groups, unions, fraternal or athletic groups, or [...] on one occasion? Less than monthly 07/09/2019 [facility] of Occupat ional Health - Occupational [...] Date Recorded Dental: Regular Dentist Unknown 07/13/19 23 Education Answer Date Recorded What is the highest level of school you have completed or the highest degree you have received? GED or equivalent 01/2020 Sex and Gender Information Value Date Recorded Sex Assigned at Female 09/29/2017 12:58 PM CDT Gender Identity Female 09/29/2017 12:58 PM CDT Sexual Orientation Lesbian or Griffiths 09/29/2017 12 :58 PM CDT documented as of this encounter Medications at Time of Discharge Medication Sig Dispensed Refills Start Date End Date cholecalciferol (VITAMIN D3) 50 mcg (2,000 Unit) capsule Take by mouth daily. 0 11/24/2021 clonazePAM (KlonoPIN) 1 mg tablet Take 1 mg by mouth at bedtime as needed. 0 10/06/2021 gabapentin (NEURONTIN) 600 mg tablet Take 600 mg by mouth 3 (three) times a day. 0 11/10/2021 glucosamine/chondr walker A sod (glucosamine-chondroitin) 1,500-1,200 mg/30 mL liquid 2 tablets. 0 01/15/2022 HYDROcodone-acetaminophen (NORCO) 5-325 mg per tablet 0 01/07/2022 latanoprost (XALATAN) 0.005 % ophthalmic solution INSTILL 1 DROP IN BOTH EYES AT BEDTIME 10 mL 11 12/28/2022 lisinopril-hydroCHLOROthi azide (PRINZIDE,ZESTORETIC) 20-25 mg per tablet Take 1 tablet by mouth daily. 0 09/17/2016 LORazepam (ATIVAN) 1 mg tablet Take 1 tablet by mouth daily. 0 08/13/2015 moxifloxacin (VIGAMOX) 0.5 % ophthalmic solution Administer 1 drop into the left eye 4 (four) times a day. 1 drop four times a day to the operative eye starting the day before surgery 3 mL 1 05/17/2022 ondansetron ODT (ZOFRAN-ODT) 4 mg disintegrating tablet 4 mg every 8 (eight) hours. 0 02/26/2022 oxyCODONE (ROXICODONE) 5 mg immediate release tablet Take 5 mg by mouth every 4 (four) hours as needed. for pain 0 02/26/2022 peg 400-propylene glycol, PF, (SYSTANE) 0.4-0.3 % ophthalmic solution Administer 1 drop into both eyes as needed. 0 11/20/2015 pramipexole (MIRAPEX) 0.5 mg tablet Take 2 tablets by mouth daily. 0 08/13/2015 prednisoLONE acetate (PRED FORTE) 1 % ophthalmic suspension Administer 1 drop into the left eye 4 (four) times a day. Starting 3 days prior to surgery 5 mL 2 11/13/2021 prednisoLONE acetate (PRED FORTE) 1 % ophthalmic suspension Administer 1 drop into the left eye 4 (four) times a day. Start 3 days before surgery 10 mL 6 01/29/2022 prednisoLONE acetate (PRED FORTE) 1 % ophthalmic suspension Administer 1 drop into the left eye 4 (four) times a day. 15 mL 3 04/21/2022 rosuvastatin (CRESTOR) 10 mg tablet Take 10 mg by mouth daily. 0 12/07/2021 timolol (TIMOPTIC) 0.5 % ophthalmic solution INSTILL 1 DROP IN BOTH EYES EVERY MORNING 10 mL 3 05/04/2022 timoloL (BETIMOL) 0.5 % ophthalmic solution Administer into the left eye 2 (two) times a day. Left eye 0 01/15/2022 03/14/2023 documented as of this encounter Miscellaneous Notes * Result Encounter Note - Magen Sommer M.D. - 01/21/2023 9:32 AM CDT Iron studies and ferritin in normal range. Would not plan for iron supplementation to help restlessleg symptoms documented in this encounter Plan of Treatment Upcoming Encounters Date Type Department Care Team (Late st Contact Info) Description 07/06/2023 3:00 PM BUDGET TECHNICIAN Ancillary Procedure Department of Ophthalmology in [place], [place] [address] [place] [phone] Danial Jeffries M.D., Ph.D. [address] [place] [phone] 07/06/2023 3:30 PM BUDGET TECHNICIAN Office Visit Department of Ophthalmology in [place], [place] [address] [place] [phone] Danial Jeffries M.D., Ph.D. [address] [place] [phone] documented as of this encounter Procedures Procedure Name Priority Date/Time Associated Diagnosis Comments IRON AND TOT IRON-BINDING CAPACITY, S/P Routine 01/20/2023 8:52 AM CDT Restless Leg Syndrome FERRITIN, S Routine 01/20/2023 8:52 AM CDT Restless Leg Syndrome documented in this encounter Results * Iron and Total [...] CDT Magen Sommer M.D. LAB BLOOD ADD-ON Performing Organization Address [facility]/ZIP Co de Phone Number [facility] [address] [place] [address], [facility] AUST [facility] [address] [place] [address] * Ferritin (01/20/2023 8:52 AM CDT) Ferritin, S 147 11 - 328 mcg/L 01/20/2023 10:44 AM CDT OWAT Comment: Biotin has been identified by the loan interviewer as a potential interfering substance. Higher concentrations of biotin may be found in multivitamins, hair/nail supplements, and workout supplements. If the result does not match clinical observations, repeat testing after patient refrains from the use of supplements for at least 12 hours. Blood (Blood, Venous) 01/20/2023 8:52 AM CDT 01/20/2023 8:53 AM CDT Magen Sommer M.D. LAB BLOOD ADD-ON [facility] [address] [place] [address], [facility] OW[facility] [place] [address] [place] [address] documented in this encounter Visit Diagnoses Diagnosis Restless Leg Syndrome documented in this encounter Care Teams Rules Examiner Relationship Specialty Start Date End Date Elsewhere, Pcp PCP - General Internal Medicine 04/20/22 documented as of this encounter
--- OUTSIDE RECORDS SUMMARY | 2023-05-09 20:45 | XMS_ITS | Encounter Summary ---
Author Name Unknown Organization [facility] Address [address] [place] [address] Care Team Providers Care Tube Machine Operator Name Role Phone Elsewhere, Pcp Primary Care Provider Unavailabl e Reason for Referral * Outpatient (Routine) - Closed Specialty Diagnoses / Procedures Referred By Pepper collins Referred To Contact Ophthalmology Danial Jeffries M.D., Ph.D. [address] [place] [phone] [facility] Referral ID Status Reason Start Date Expiration Date Visits Re quested Visits Authorized [id number] Closed 10/06/2022 10/05/2025 1 1 Reason for Visit * Reason Comments Follow up, Primary Open-Angle Glaucoma S evere Stage Bilater * Outpatient (Routine) - Closed Specialty Diagnoses / Procedures Referred By Pepper collins Referred To Contact Ophthalmology Danial Jeffries M.D., Ph.D. [address] [place] [phone] [facility] Referral ID Status Reason Start Date Expiration Date Visits Re quested Visits Authorized [id number] Closed 06/25/2022 06/24/2025 1 1 Encounter Details Date Type Department Care Team (Latest Contact Info) Description 10/06/2022 10:45 AM CDT Office Visit Department of Ophthalmology in [place], [place] [address] [place] [phone] Danial Jeffries M.D., Ph.D. [address] [place] [phone] Primary Open-Angle Glaucoma Severe Stage Bilateral (Primary [...] How often do you attend chur or catholic services? 1 to 4 times per year 07/09/2019 Do you belong to any clubs o r organizations such as nondenominational groups, unions, fraternal or athletic groups, or [...] on one occasion? Less than monthly 07/09/2019 [facility] [place] of Occupat ional Health - Occupational Stress [...] Notes * Danial Jeffries M.D., Ph.D. 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 Saenz) S/p traeculectomy left eye (08/24/17 - Dr. 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 documented in this encounter Plan of Treatment Upcoming Encounters Date Type Department Care Team (Late st Contact Info) Description 07/06/2023 3:00 PM JEWEL GAUGER Ancillary Procedure Department of Ophthalmology in [place], [place] [address] [place] [phone] Danial Jeffries M.D., Ph.D. [address] [place] [phone] 07/06/2023 3:30 PM JEWEL GAUGER Office Visit Department of Ophthalmology in [place], [place] [address] [place] [phone] Danial Jeffries M.D., Ph.D. [address] [place] [phone] Scheduled Referrals Name Type Priority Associated Diagnoses Order Schedule Ophthalmology office visit (clinic) Outpatient Referral Routine Expected: 03/08/2023, Expires: 01/07/2024 documented as of this encounter Results * Automated VF - Extended - OU - Both Eyes (03/14/2023 7:58 AM JEWEL GAUGER) Narrative OPHTHALMOLOGY IMAGING EXAM - 03/14/2023 9:33 AM JEWEL GAUGER Right Eye Automated visual field device used was Zeiss. Strategy was RADHA. Threshold was 10-2. Eyelid was untaped. Left Eye Automated visual field device used was Zeiss. Strategy was RADHA. Threshold was 10-2. Eyelid was untaped. Notes See note from today. Danial Jeffries M.D., Ph.D. OPHTH VISUAL F IELD Performing Organization Address [facility] Co de Phone Number OPHTHALMOLOGY IMAGING EXAM * Automated VF - Extended - OU - Both Eyes (03/14/2023 7:41 AM JEWEL GAUGER) Narrative OPHTHALMOLOGY IMAGING EXAM - 03/14/2023 9:33 AM JEWEL GAUGER Right Eye Automated visual field device used was Zeiss. Strategy was RADHA. Threshold was 24-2. Eyelid was untaped. Left Eye Automated visual field device used was Zeiss. Strategy was RADHA. Threshold was 24-2. Eyelid was untaped. Notes See note from today. Danial Jeffries M.D., Ph.D. 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
--- OUTSIDE RECORDS SUMMARY | 2023-05-09 20:45 | XMS_ITS | Encounter Summary ---
Author Name Unknown Organization [facility] Address [address] [place] [address] Care Team Providers Care Building Rental Manager Name Role Phone Elsewhere, Pcp Primary Care Provider Unavailabl e Encounter Details Date Type Department Care Team (Late st Contact Info) Description 03/14/2023 7:40 AM FIBER LOCKING SUPERVISOR Ancillary Procedure Department of Ophthalmology Social History Tobacco Use Types Packs/Day Years [...] often do you attend chur ch or congregation services? 1 to 4 times per year 07/09/2019 Do you belong to any clubs o r organizations such as rastafarian groups, unions, fraternal or athletic groups, or [...] on one occasion? Less than monthly 07/09/2019 [facility] - Occupational Stress Questionnaire Answer Date Recorded [...] st Contact Info) Description 07/06/2023 3:00 PM FIBER LOCKING SUPERVISOR Ancillary Procedure Department of Ophthalmology in [place], [place] [address] [place] [phone] Danial Jeffries M.D., Ph.D. [address] [place] [phone] 07/06/2023 3:30 PM FIBER LOCKING SUPERVISOR Office Visit Department of Ophthalmology in [place], [place] [address] [place] [phone] Danial Jeffries M.D., Ph.D. [address] [place] [phone] documented as of this encounter Procedures Procedure Name Priority Date/Time Associated Diagnosis Comments OPHTHALMOLOGY IMAGE EXAM Routine 03/14/2023 7:40 AM FIBER LOCKING SUPERVISOR documented in this encounter Results * Visual Ariza (VF)-Ophthalmology Image Exam (03/14/2023 7:40 AM FIBER LOCKING SUPERVISOR) 03/14/2023 7:37 AM FIBER LOCKING SUPERVISOR Narrative IIMS - 03/14/2023 8:01 AM FIBER LOCKING SUPERVISOR This order has been created and auto-finalized to support the import of images acquired without order. The clinical documentation to support these images can be found on the encounter that produced images. Provider Not In System IMG NON RAD IMAGI NG PROCEDURES IIMS NA documented in this encounter Visit Diagnoses Not on filedocumented in this encounter Care Teams Building Rental Manager Relationship Specialty Start Date End Date Elsewhere, Pcp PCP - General Internal Medicine 04/20/22 documented as of this encounter
--- OUTSIDE RECORDS SUMMARY | 2023-05-09 20:45 | XMS_ITS | Encounter Summary ---
Author Name Unknown Organization [facility] Address [address] [place] [address] Care Team Providers Care Labor Service Representative Name Role Phone Elsewhere, Pcp Primary Care Provider Unavailabl e Encounter Details Date Type Department Care Team (Latest Contact Info) Description 03/14/2023 8:00 AM VISITOR SERVICES TECHNICIAN Ancillary Procedure Department of Ophthalmology in [place], [place] [address] [place] [address] Danial Jeffries M.D., Ph.D. [address] [place] [phone] Primary Open-Angle Glaucoma Severe Stage Bilateral Social History Tobacco Use Types Packs/Day Years [...] often do you attend chur ch or bahai services? 1 to 4 times per year 07/09/2019 Do you belong to any clubs o r organizations such as anabaptism groups, unions, fraternal or athletic groups, or [...] on one occasion? Less than monthly 07/09/2019 [facility] of Occupat ional Health - Occupational Stress [...] st Contact Info) Description 07/06/2023 3:00 PM VISITOR SERVICES TECHNICIAN Ancillary Procedure Department of Ophthalmology in [place], [place] [address] [place] [address] Danial Jeffries M.D., Ph.D. [address] [place] [phone] 07/06/2023 3:30 PM VISITOR SERVICES TECHNICIAN Office Visit Department of Ophthalmology in [place], [place] [address] [place] [address] Danial Jeffries M.D., Ph.D. [address] [place] [phone] documented as of this encounter Procedures Procedure Name Priority Date/Time Associated Diagnosis Comments AUTOMATED VF - EXTENDED - OU - BOTH EYES Routine 03/14/2023 7:41 AM VISITOR SERVICES TECHNICIAN Primary Open-Angle Glaucoma Severe Stage Bilateral documented in this encounter Results * Automated VF - Extended - OU - Both Eyes (03/14/2023 7:41 AM VISITOR SERVICES TECHNICIAN) Narrative OPHTHALMOLOGY IMAGING EXAM - 03/14/2023 9:33 AM VISITOR SERVICES TECHNICIAN Right Eye Automated visual field device used was Zeiss. Strategy was RADHA. Threshold was 24-2. Eyelid was untaped. Left Eye Automated visual field device used was Zeiss. Strategy was RADHA. Threshold was 24-2. Eyelid was untaped. Notes See note from today. Danial Jeffries M.D., Ph.D. OPHTH VISUAL F IELD OPHTHALMOLOGY IMAGING EXAM documented in this encounter Visit Diagnoses Diagnosis Primary Open-Angle Glaucoma Severe Stage Bilateral documented in this encounter Care Teams Labor Service Representative Relationship Specialty Start Date End Date Elsewhere, Pcp PCP - General Internal Medicine 04/20/22 documented as of this encounter
--- OUTSIDE RECORDS SUMMARY | 2023-05-09 20:45 | XMS_ITS | Encounter Summary ---
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 [address] [place] [phone] [facility] Referral ID Status Reason Start Date Expiration Date Visits Re quested Visits Authorized [id number] Closed 03/14/2023 03/13/2024 1 1 Encounter Details Date Type Department Care Team (Latest Contact Info) Description 03/14/2023 10:45 AM CHASSIS WIRER Procedure visit Department of Ophthalmology in [place], [place] [address] [place] [phone] Danial Jeffries M.D., Ph.D. 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 1 to 4 times per year 07/09/2019 Do you belong to any clubs o r organizations such as adventist groups, unions, fraternal or athletic groups, or [...] on one occasion? Less than monthly 07/09/2019 [facility] - Occupational Stress Questionnaire Answer [...] * Danial Jeffries M.D., Ph.D. - 03/14/2023 10:45 AM CST See other note from today. SIS WIRER documented in this encounter Plan of Treatment Upcoming Encounters Date Type Department Care Team (Late st Contact Info) Description 07/06/2023 3:00 PM CHASSIS WIRER Ancillary Procedure Department of Ophthalmology in [place], [place] [address] [place] [phone] Danial Jeffries M.D., Ph.D. [address] [place] [phone] 07/06/2023 3:30 PM CHASSIS WIRER Office Visit Department of Ophthalmology in [place], [place] [address] [place] [phone] Danial Jeffries M.D., Ph.D. 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 Procedure Procedure was PI. Topical anesthesia was used. Laser Information The type of laser was yag. Total spots was 14. The energy was 1.50 millijoules. Post-op The patient tolerated the procedure well. There were no complications. The patient received written and verbal post procedure care education. Danial Jeffries M.D., Ph.D. 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
--- OUTSIDE RECORDS SUMMARY | 2023-05-09 20:45 | XMS_ITS | Encounter Summary ---
Author Name Unknown Organization [facility] Address [address] [place] [address] Care Team Providers Care Reception Name Role Phone Elsewhere, Pcp Primary Care Provider Unavailabl e Reason for Visit * Outpatient (Routine) - Closed Specialty Diagnoses / Procedures Referred By Pepper t Referred To Contact Diagnoses Primary Open-Angle Glaucoma Severe Stage Bilateral Procedures Refraction Danial Jeffries M.D., Ph.D. [address] [place] [phone] [facility] Referral ID Status Reason Start Date Expiration Date Visits Re quested Visits Authorized [id number] Closed 06/25/2022 06/25/2023 1 1 Encounter Details Date Type Department Care Team (Latest Contact Info) Description 10/06/2022 8:00 AM CDT Ancillary Procedure Department of Ophthalmology in [place], [place] [address] [place] [phone] Danial Jeffries M.D., Ph.D. [address] [place] [phone] Primary Open-Angle Glaucoma Severe Stage Bilateral Social [...] often do you attend chur ch or yazidi services? 1 to 4 times per year 07/09/2019 Do you belong to any clubs o r organizations such as protestant groups, unions, fraternal or athletic groups, or [...] on one occasion? Less than monthly 07/09/2019 [facility] of Occupat ional Health - Occupational Stress [...] st Contact Info) Description 07/06/2023 3:00 PM NURSE RECRUITER Ancillary Procedure Department of Ophthalmology in [place], [place] [address] [place] [phone] Danial Jeffries M.D., Ph.D. [address] [place] [phone] 07/06/2023 3:30 PM NURSE RECRUITER Office Visit Department of Ophthalmology in [place], [place] [address] [place] [phone] Danial Jeffries M.D., Ph.D. [address] [place] [phone] documented as of this encounter Visit Diagnoses Diagnosis Primary Open-Angle Glaucoma Severe Stage Bilateral documented in this encounter Care Teams Reception Relationship Specialty Start Date End Date Elsewhere, Pcp PCP - General Internal Medicine 04/20/22 documented as of this encounter
--- OUTSIDE RECORDS SUMMARY | 2023-05-09 20:45 | XMS_ITS | Encounter Summary ---
Author Name Unknown Organization [facility] Address [address] [place] [address] Care Team Providers Care Vacuum Forming Machine Operator Name Role Phone Elsewhere, Pcp Primary Care Provider Unavailabl e Reason for Referral * Outpatient (Routine) - Authorized Specialty Diagnoses / Procedures Referred By Pepper t Referred To Contact Diagnoses Primary Open-Angle Glaucoma Severe Stage Bilateral Procedures Refraction Danial Jeffries M.D., Ph.D. [address] [place] [phone] [facility] Referral ID Status Reason Start Date Expiration Date V isits Requested Visits Authorized [id number] Authorized 03/16/2023 03/15/2024 1 [address] MERCHANDISER Encounter Details Date Type Department Care Team (Late st Contact Info) Description 03/16/2023 Orders Only Department of Ophthalmology in [place], [place] [address] [place] [phone] Mari Olmstead [address] [place] [phone] Primary Open-Angle Glaucoma Severe Stage Bilateral (Primary [...] How often do you attend chur or buddhist services? 1 to 4 times per year [...] on one occasion? Less than monthly 07/09/2019 [facility] - Occupational Stress Questionnaire [...] st Contact Info) Description 07/06/2023 3:00 PM ONLINE MERCHANDISER Ancillary Procedure Department of Ophthalmology in [place], [place] [address] [place] [phone] Danial Jeffries M.D., Ph.D. [address] [place] [phone] 07/06/2023 3:30 PM ONLINE MERCHANDISER Office Visit Department of Ophthalmology in [place], [place] [address] [place] [phone] Danial Jeffries M.D., Ph.D. [address] [place] [phone] Scheduled Orders Name Type Priority Associated Diagnoses Orde r Schedule Refraction Ophthalmology Routine Primary Open-Angle Glaucoma Severe Stage Bilateral Expected: 03/16/2023 (Approximate), Expires: 06/16/2024 documented as of this encounter Visit Diagnoses Diagnosis Primary Open-Angle Glaucoma Severe Stage Bilateral- Primary documented in this encounter Care Teams Vacuum Forming Machine Operator Relationship Specialty Start Date End Date Elsewhere, Pcp PCP - General Internal Medicine 04/20/22 documented as of this encounter
--- OUTSIDE RECORDS SUMMARY | 2023-05-09 20:45 | XMS_ITS | Encounter Summary ---
Author Name Unknown Organization [facility] Address [address] [place] [address] Care Team Providers Care Senior Telecommunications Consultant Name Role Phone Elsewhere, Pcp Primary Care Provider Unavailabl e Encounter Details Date Type Department Care Team (Latest Contact Info) Description 03/14/2023 8:30 AM LEAF TINNER Ancillary Procedure Department of Ophthalmology in [place], [place] [address] [place] [address] Danial Jeffries M.D., Ph.D. [address] [place] [phone] Primary Open-Angle Glaucoma Severe Stage Bilateral Social [...] often do you attend chur ch or buddhism services? 1 to 4 times per year 07/09/2019 Do you belong to any clubs o r organizations such as samaritan groups, unions, fraternal or athletic groups, or [...] on one occasion? Less than monthly 07/09/2019 [facility] [place] of Occupat ional Health - Occupational Stress [...] st Contact Info) Description 07/06/2023 3:00 PM LEAF TINNER Ancillary Procedure Department of Ophthalmology in [place], [place] [address] [place] [address] Danial Jeffries M.D., Ph.D. [address] [place] [phone] 07/06/2023 3:30 PM LEAF TINNER Office Visit Department of Ophthalmology in [place], [place] [address] [place] [address] Danial Jeffries M.D., Ph.D. [address] [place] [phone] documented as of this encounter Procedures Procedure Name Priority Date/Time Associated Diagnosis Comments AUTOMATED VF - EXTENDED - OU - BOTH EYES Routine 03/14/2023 7:58 AM LEAF TINNER Primary Open-Angle Glaucoma Severe Stage Bilateral documented in this encounter Results * Automated VF - Extended - OU - Both Eyes (03/14/2023 7:58 AM LEAF TINNER) Narrative OPHTHALMOLOGY IMAGING EXAM - 03/14/2023 9:33 AM LEAF TINNER Right Eye Automated visual field device used [...] Bilateral documented in this encounter Care Teams Senior Telecommunications Consultant Relationship Specialty Start Date End Date Elsewhere, Pcp PCP - General Internal Medicine 04/20/22 documented as of this encounter
--- OUTSIDE RECORDS SUMMARY | 2023-05-09 20:45 | XMS_ITS | Encounter Summary ---
Author Name Unknown Organization [facility] Address [address] [place] [address] Care Team Providers Care Technical Solution Architect Name Role Phone Elsewhere, Pcp Primary Care Provider Unavailabl e Encounter Details Date Type Department Care Team (Late st Contact Info) Description 03/14/2023 8:05 AM WASTEWATER PLANT OPERATOR Ancillary Procedure Department of Ophthalmology Social History [...] often do you attend chur ch or jewish services? 1 to 4 times per year 07/09/2019 Do you belong to any clubs o r organizations such as sabianist groups, unions, fraternal or athletic groups, or [...] on one occasion? Less than monthly 07/09/2019 [facility] - Occupational Stress Questionnaire Answer Date [...] st Contact Info) Description 07/06/2023 3:00 PM WASTEWATER PLANT OPERATOR Ancillary Procedure Department of Ophthalmology in [place], [place] [address] [place] [address] Danial Jeffries M.D., Ph.D. [address] [place] [phone] 07/06/2023 3:30 PM WASTEWATER PLANT OPERATOR Office Visit Department of Ophthalmology in [place], [place] [address] [place] [address] Danial Jeffries M.D., Ph.D. [address] [place] [phone] documented as of this encounter Procedures Procedure Name Priority Date/Time Associated Diagnosis Comments OPHTHALMOLOGY IMAGE EXAM Routine 03/14/2023 8:05 AM WASTEWATER PLANT OPERATOR documented in this encounter Results * Visual Ariza (VF)-Ophthalmology Image Exam (03/14/2023 8:05 AM WASTEWATER PLANT OPERATOR) 03/14/2023 8:02 AM WASTEWATER PLANT OPERATOR Narrative IIMS - 03/14/2023 8:18 AM WASTEWATER PLANT OPERATOR This order has been created and auto-finalized to support the import of images acquired without order. The clinical documentation to support these images can be found on the encounter that produced images. Provider Not In System IMG NON RAD IMAGI NG PROCEDURES IIMS NA documented in this encounter Visit Diagnoses Not on filedocumented in this encounter Care Teams Technical Solution Architect Relationship Specialty Start Date End Date Elsewhere, Pcp PCP - General Internal Medicine 04/20/22 documented as of this encounter
--- OUTSIDE RECORDS SUMMARY | 2023-05-09 20:45 | XMS_ITS | Encounter Summary ---
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 1 to 4 times per year 07/09/2019 Do you belong to any clubs o r organizations such as jehovah's witness groups, unions, fraternal or athletic groups, or [...] on one occasion? Less than monthly 07/09/2019 [facility] of Occupat ional Health - [...] st Contact Info) Description 07/06/2023 3:00 PM ELECTRONICS TESTER Ancillary Procedure Department of Ophthalmology in [place], [place] [address] [place] [phone] Danial Jeffries M.D., Ph.D. [address] [place] [phone] 07/06/2023 3:30 PM ELECTRONICS TESTER Office Visit Department of Ophthalmology in [place], [place] [address] [place] [phone] Danial Jeffries M.D., Ph.D. [address] [place] [phone] documented as of this encounter Results * Yag Capsulotomy - OS - Left Eye (03/14/2023 10:00 AM ELECTRONICS TESTER) Narrative OPHTHALMOLGY NON-IMAGING ORDERS - 03/14/2023 10:00 AM ELECTRONICS TESTER Time Out Confirmed correct patient, procedure, site, and patient consented. Procedure Procedure was PI. Topical anesthesia was used. Laser Information The type of laser was yag. Total spots was 14. The energy was 1.50 millijoules. Post-op The patient tolerated the procedure well. There were no complications. The patient received written and verbal post procedure care education. Danial Jeffries M.D., Ph.D. 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
--- OUTSIDE RECORDS SUMMARY | 2023-05-09 20:45 | XMS_ITS | Encounter Summary ---
Author Name Unknown Organization [facility] Address [address] [place] [address] Care Team Providers Care Merchandising Team Lead Name Role Phone Elsewhere, Pcp Primary Care Provider Unavailabl e Encounter Details Date Type Department Care Team (Late st Contact Info) Description 10/06/2022 6:30 AM CDT Ancillary Procedure Department of Ophthalmology Social History [...] often do you attend chur ch or confucianist services? 1 to 4 times per year 07/09/2019 Do you belong to any clubs o r organizations such as mu-ism groups, unions, fraternal or athletic groups, or [...] on one occasion? Less than monthly 07/09/2019 [facility] [place] of Occupat ional [facility] - Occupational Stress Questionnaire Answer Date [...] st Contact Info) Description 07/06/2023 3:00 PM AIR BAG BUFFER Ancillary Procedure Department of Ophthalmology in [place], [place] [address] [place] [address] Danial Jeffries M.D., Ph.D. [address] [place] [phone] 07/06/2023 3:30 PM AIR BAG BUFFER Office Visit Department of Ophthalmology in [place], [place] [address] [place] [phone] Danial Jeffries M.D., Ph.D. [address] [place] [phone] documented as of this encounter Procedures Procedure Name Priority Date/Time Associated Diagnosis Comments OPHTHALMOLOGY IMAGE EXAM Routine 10/06/2022 6:30 AM CDT documented in this encounter Results * Visual Ariza (VF)-Ophthalmology Image Exam (10/06/2022 6:30 AM CDT) 10/06/2022 6:30 AM CDT Narrative IIMS - 10/06/2022 8:52 AM CDT This order has been created and auto-finalized to support the import of images acquired without order. The clinical documentation to support these images can be found on the encounter that produced images. Provider Not In System IMG NON RAD IMAGI NG PROCEDURES IIMS NA documented in this encounter Visit Diagnoses Not on filedocumented in this encounter Care Teams Merchandising Team Lead Relationship Specialty Start Date End Date Elsewhere, Pcp PCP - General Internal Medicine 04/20/22 documented as of this encounter
--- OUTSIDE RECORDS SUMMARY | 2023-05-09 20:45 | XMS_ITS | Encounter Summary ---
Author Name Unknown Organization [facility] Address [address] [place] [address] Care Team Providers Care Co Founder And Cto Name Role Phone Elsewhere, Pcp Primary Care Provider Unavailabl e Encounter Details Date Type Department Care Team (Late st Contact Info) Description 10/06/2022 6:50 AM CDT Ancillary Procedure Department of Ophthalmology [...] often do you attend chur ch or samaritan services? 1 to 4 times per year 07/09/2019 Do you belong to any clubs o r organizations such as synagogue groups, unions, fraternal or athletic groups, or [...] on one occasion? Less than monthly 07/09/2019 [facility] [place] of Occupat ional [facility] - Occupational Stress Questionnaire Answer Date [...] st Contact Info) Description 07/06/2023 3:00 PM PRODUCE FIELD MERCHANDISER Ancillary Procedure Department of Ophthalmology in [place], [place] [address] [place] [address] Danial Jeffries M.D., Ph.D. [address] [place] [phone] 07/06/2023 3:30 PM PRODUCE FIELD MERCHANDISER Office Visit Department of Ophthalmology in [place], [place] [address] [place] [address] Danial Jeffries M.D., Ph.D. [address] [place] [phone] documented as of this encounter Procedures Procedure Name Priority Date/Time Associated Diagnosis Comments OPHTHALMOLOGY IMAGE EXAM Routine 10/06/2022 6:50 AM CDT documented in this encounter Results * Visual Ariza (VF)-Ophthalmology Image Exam (10/06/2022 6:50 AM CDT) 10/06/2022 6:48 AM CDT Narrative IIMS - 10/06/2022 9:12 AM CDT This order has been created and auto-finalized to support the import of images acquired without order. The clinical documentation to support these images can be found on the encounter that produced images. Provider Not In System IMG NON RAD IMAGI NG PROCEDURES IIMS NA documented in this encounter Visit Diagnoses Not on filedocumented in this encounter Care Teams Co Founder And Cto Relationship Specialty Start Date End Date Elsewhere, Pcp PCP - General Internal Medicine 04/20/22 documented as of this encounter
--- OUTSIDE RECORDS SUMMARY | 2023-05-09 20:46 | XMS_ITS | Encounter Summary ---
Author Name Unknown Organization [facility] Address [address] [place] [address] Care Team Providers Care Clinical Practitioner Name Role Phone Elsewhere, Pcp Primary Care Provider Unavailabl e Encounter Details Date Type Department Care Team (Late st Contact Info) Description 06/14/2017 Historical Ophthalmology RST OPH Elsie Garcia O.D. [address] [place] [address] Social History Tobacco Use Types Packs/Day Years Used Date Smoking Tobacco: Never Assessed Sex and Gender Information Value Date Recorded Sex Assigned at Female 09/29/2017 12:58 PM CDT Gender Identity Female 09/29/2017 12:58 PM CDT Sexual Orientation Lesbian or Griffiths 09/29/2017 12 :58 PM CDT documented as of this encounter Progress Notes * Elsie Garcia O.D. - 06/14/2017 10:35 AM CST Eye General CHIEF COMPLAINT Redness; both eyes HISTORY OF PRESENT ILLNESS Redness; both eyes; x 2 weeks; slowly progressive. Denies ocular pain. Eyes get warm and so pt puts cold compress on the eyes; x 1 year; occasional. TY: both eyes red onset 1 week ago, no eye discomfort, no discharge switched travatan z to latanoprost 1 week ago both eyes taking timolol bid both eyes taking azopt bid both eyes, has been using for 2-3 weeks; schedule to start dorzolamide after azoptruns out (already has bottle) brimonidine bid both x months IMPRESSION / REPORT / PLAN #1 Primary open angle glaucoma Familiy history: no Diagnosis: 2 years ago Current medications: travatan, cosopt Lasers/surgeries: s/p LASIK 2000 Allergies glaucoma drops: None Renal disease: No Asthma: No Tmax: Unknown to patient CCT: 470/427 target low teens both 08/18/16 OCT: right Superior loss, left inferior loss, 81, 70 avg RNFL 7,6 SS, stable from 08/15 VF 10-2 06/2017 left eye - sup arc; stable x 10/2016 VF 24-2: right not performed, left, reliable, superior arcuate, stable from 08/15 Plan: (patient has thin corneas, s/p LASIK) IOP acceptable both eyes (11, 13) red eyes both for 1 week; suspect latanoprost based on timing cont azopt or dorzolamide bid both cont timolol bid both cont brimonidine bid both switch back to Travatan Z ( from latanoprost); suspect latanoprost contributing to redeyes rec preservative free lubrication gtt 3 mo va ta vf (24-2 and 10-2) oct #2 High myope s/p LASIK in 2000 DIAGNOSIS #1 Primary open angle glaucoma #2 High myope CDM Reports - EYEGEN Id: [id number] Status: Fnl documented in this encounter Plan of Treatment Upcoming Encounters Date Type Department Care Team (Late st Contact Info) Description 07/06/2023 3:00 PM PARADI OPERATOR Ancillary Procedure Department of Ophthalmology in [place], [place] [address] [place] [phone] Danial Jeffries M.D., Ph.D. [address] [place] [phone] 07/06/2023 3:30 PM PARADI OPERATOR Office Visit Department of Ophthalmology in [place], [place] [address] [place] [address] Danial Jeffries M.D., Ph.D. [address] [place] [phone] documented as of this encounter Visit Diagnoses Not on filedocumented in this encounter Additional Health Concerns Infection Onset Date Last Indicated Resolved Time COVID19 Pending 09/23/2019 09/23/2019 09/24/2019 8 :48 AM CDT COVID19 Pending 12/07/2021 12/07/2021 12/07/2021 5 :33 PM CDT COVID19 12/07/2021 12/07/2021 12/27/2021 4:45 AM CDT documented as of this encounter Care Teams Clinical Practitioner Relationship Specialty Start Date End Date Elsewhere, Pcp PCP - General Internal Medicine 04/20/22 documented as of this encounter
--- OUTSIDE RECORDS SUMMARY | 2023-05-09 20:46 | XMS_ITS | Encounter Summary ---
Author Name Unknown Organization [facility] Address [address] [place] [address] Care Team Providers Care Malted Milk Masher Name Role Phone Elsewhere, Pcp Primary Care Provider Unavailabl e Encounter Details Date Type Department Care Team (Latest Contact Info) Description 10/06/2022 9:00 AM CDT Ancillary Procedure Department of Ophthalmology in [place], [place] [address] [place] [address] Danial Jeffries M.D., Ph.D. [address] [place] [address] Primary Open-Angle Glaucoma Severe Stage Bilateral Social [...] often do you attend chur ch or hindu services? 1 to 4 times per year 07/09/2019 Do you belong to any clubs o r organizations such as worship groups, unions, fraternal or athletic groups, or [...] on one occasion? Less than monthly 07/09/2019 [facility] - [...] st Contact Info) Description 07/06/2023 3:00 PM LIGHT ARMORED VEHICLE OFFICER Ancillary Procedure Department of Ophthalmology in [place], [place] [address] [place] [address] Danial Jeffries M.D., Ph.D. [address] [place] [phone] 07/06/2023 3:30 PM LIGHT ARMORED VEHICLE OFFICER Office Visit Department of Ophthalmology in [place], [place] [address] [place] [address] Danial Jeffries M.D., Ph.D. [address] [place] [phone] documented as of this encounter Procedures Procedure Name Priority Date/Time Associated Diagnosis Comments AUTOMATED VF - EXTENDED - OU - BOTH EYES Routine 10/06/2022 8:48 AM CDT Primary Open-Angle Glaucoma Severe Stage Bilateral documented in this encounter Results * Automated VF - Extended - OU - Both Eyes (10/06/2022 8:48 AM CDT) Narrative OPHTHALMOLOGY IMAGING EXAM - 10/06/2022 10:12 AM CDT Right Eye Automated visual field device used [...] Bilateral documented in this encounter Care Teams Malted Milk Masher Relationship Specialty Start Date End Date Elsewhere, Pcp PCP - General Internal Medicine 04/20/22 documented as of this encounter
--- OUTSIDE RECORDS SUMMARY | 2023-05-09 20:46 | XMS_ITS | Encounter Summary ---
Author Name Unknown Organization [facility] Address [address] [place] [address] Care Team Providers Care Systems Tester Name Role Phone Elsewhere, Pcp Primary Care Provider Unavailabl e Encounter Details Date Type Department Care Team (Latest Contact Info) Description 07/01/2022 Clinical Communication Department of Ophthalmology in [place], [place] [address] [place] [address] Danial Jeffries M.D., Ph.D. [address] [place] [address] Social History Tobacco Use Types Packs/Day Years [...] often do you attend chur ch or synagogue services? 1 to 4 times [...] on one occasion? Less than monthly 07/09/2019 [facility] - Occupational Stress Questionnaire Answer Date [...] st Contact Info) Description 07/06/2023 3:00 PM SIMULATION ENGINEER Ancillary Procedure Department of Ophthalmology in [place], [place] [address] [place] [phone] Danial Jeffries M.D., Ph.D. [address] [place] [phone] 07/06/2023 3:30 PM SIMULATION ENGINEER Office Visit Department of Ophthalmology in [place], [place] [address] [place] [address] Danial Jeffries M.D., Ph.D. [address] [place] [phone] documented as of this encounter Visit Diagnoses Not on filedocumented in this encounter Care Teams Systems Tester Relationship Specialty Start Date End Date Elsewhere, Pcp PCP - General Internal Medicine 04/20/22 documented as of this encounter
--- OUTSIDE RECORDS SUMMARY | 2023-05-09 20:46 | XMS_ITS | Encounter Summary ---
Author Name Unknown Organization [facility] Address [address] [place] [address] Care Team Providers Care Web Application Tester Name Role Phone Elsewhere, Pcp Primary Care Provider Unavailabl e Reason for Referral * Outpatient (Routine) - Closed Specialty Diagnoses / Procedures Referred By Contvincenzo t Referred To Contact Ophthalmology Danial Jeffries M.D., Ph.D. 200 [place] [address] [facility] Referral ID Status Reason Start Date Expiration Date Visits Re quested Visits Authorized [id number] Closed 06/25/2022 06/24/2025 1 1 HALMOLOGY ASSISTANT * Outpatient (Routine) - Closed Specialty Diagnoses / Procedures Referred By Contac t Referred To Contact Diagnoses Primary Open-Angle Glaucoma Severe Stage Bilateral Procedures Refraction Danial Jeffries M.D., Ph.D. [address] [place] [address] [facility] Referral ID Status Reason Start Date Expiration Date Visits Re quested Visits Authorized [id number] Closed 06/25/2022 06/25/2023 1 1 HALMOLOGY ASSISTANT Reason for Visit * Reason Comments Glaucoma * Outpatient (Routine) - Closed Specialty Diagnoses / Procedures Referred By Contac t Referred To Contact Ophthalmology Danial Jeffries M.D., Ph.D. [address] [place] [address] [facility] Referral ID Status Reason Start Date Expiration Date Visits Re quested Visits Authorized [id number] Closed 06/09/2022 06/08/2025 1 1 Encounter Details Date Type Department Care Team (Latest Contact Info) Description 06/25/2022 11:15 AM OPHTHALMOLOGY ASSISTANT Office Visit Department of Ophthalmology in [place], [place] [address] [place] [address] Danial Jeffries M.D., Ph.D. [address] [place] [phone] Primary Open-Angle Glaucoma Severe Stage Bilateral (Primary [...] How often do you attend chur or anglican services? 1 to 4 times per year 07/09/2019 Do you belong to any clubs o r organizations such as zoroastrian groups, unions, fraternal or athletic groups, or [...] on one occasion? Less than monthly 07/09/2019 [facility] Occupat ional [facility] - Occupational Stress [...] Answer Date Recorded Nutrition: EVOO Fat Source Yes 07/08 On average, how many serving s of fruits and vegetables do you eat per day (serving size is equal to 1 cup or approximately the size of a tennis ball)? 2-3 07/09/2019 Dental Answer Date Recorded Dental: Regular Dentist Yes 04/28/20 22 Education Answer Date Recorded What is the [...] Notes * Danial Jeffries M.D., Ph.D. 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 [address] [place] [phone] 07/06/2023 3:30 PM OPHTHALMOLOGY ASSISTANT Office Visit Department of Ophthalmology in [place], [place] [address] [place] [address] Danial Jeffries M.D., Ph.D. [address] [place] [address] Scheduled Orders Name Type Priority Associated Diagnoses Orde r Schedule Refraction Ophthalmology Routine Primary Open-Angle Glaucoma Severe Stage Bilateral Expected: 09/22/2022, Expires: 09/23/2023 Scheduled Referrals Name Type Priority Associated Diagnoses Order Schedule Ophthalmology office visit (clinic) Outpatient Referral Routine Expected: 09/22/2022, Expires: 09/23/2023 documented as of this encounter Results * [...] OPHTH VISUAL F IELD Performing Organization Address [facility] Phone Number OPHTHALMOLOGY IMAGING EXAM * Automated VF - Extended - OU - Both Eyes (10/06/2022 8:32 AM CDT) Narrative OPHTHALMOLOGY IMAGING EXAM - 10/06/2022 10:12 AM CDT Right Eye Automated visual field device used was Zeiss. Strategy was RADHA. Threshold was 10-2. Eyelid was untaped. Left Eye Automated visual field device used was Zeiss. Strategy was RADHA. Threshold was 10-2. Eyelid was untaped. Notes See note from today. Danial Jeffries M.D., Ph.D. 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
--- OUTSIDE RECORDS SUMMARY | 2023-05-09 20:46 | XMS_ITS | Encounter Summary ---
Author Name Unknown Organization [facility] Address [address] [place] [address] Care Team Providers Care Welder Fitter Arc Name Role Phone Elsewhere, Pcp Primary Care Provider Unavailabl e Encounter Details Date Type Department Care Team (Late st Contact Info) Description 11/20/2015 Historical Ophthalmology RST OPH Dahiana Saenz M.D. [address] [phone] Social History Tobacco Use Types Packs/Day Years Used Date Smoking Tobacco: Never Assessed Sex and Gender Information Value Date Recorded Sex Assigned at Female 09/29/2017 12:58 PM CDT Gender Identity Female 09/29/2017 12:58 PM CDT Sexual Orientation Lesbian or Griffiths 09/29/2017 12 :58 PM CDT documented as of this encounter Progress Notes * Dahiana Saenz M.D. - 11/20/2015 10:09 AM CDT Eye General CHIEF COMPLAINT 3-Month Return - Primary open angle glaucoma HISTORY OF PRESENT ILLNESS No changes/concerns with vision since last exam of 08/29/15. Eyes tend to feel irritated, left > right, and it feels better with cold compress on the eyes. She does states the eyes tend to water and she uses Systane drops, but not every day. She is wondering if she can use the drops every day. NA: No vision changes. She has had some discomfort both eyes and that can last for upto couple of days. No FB sensation. IMPRESSION / REPORT / PLAN #1 Primary open angle glaucoma Familiy history: no Diagnosis: 2 years ago Current medications: travatan, cosopt Lasers/surgeries: s/p LASIK 2000 Allergies glaucoma drops: None Renal disease: No Asthma: No Tmax: Unknown to patient CCT: 470/427 VF 24-2: right normal, left superior arcuate VF (10-2): Right - normal. Left - superior arcuate with temporal islan preserved OCT: right Superior loss, left inferior loss, 80, 70 avg RNFL 6,7 SS Fundus pictures: consistent with exam Plan: (patient has thin corneas, s/p LASIK) IOP at goal Continue same medications: dorzolamide-timolol and travatan Patient has monthly IOP checks locally return in 4 months with VF 10-2 left eye and OCT #2 High myope s/p LASIK in 2000 DIAGNOSIS #1 Primary open angle glaucoma #2 High myope CDM Reports - EYEGEN Id: [id number] Status: Fnl documented in this encounter Plan of Treatment Upcoming Encounters Date Type Department Care Team (Late st Contact Info) Description 07/06/2023 3:00 PM SUPERVISOR GARAGE Ancillary Procedure Department of Ophthalmology in [place], [place] [address] [place] [phone] Danial Jeffries M.D., Ph.D. [address] [place] [phone] 07/06/2023 3:30 PM SUPERVISOR GARAGE Office Visit Department of Ophthalmology in [place], [place] [address] [place] [phone] Danial Jeffries M.D., Ph.D. [address] [place] [phone] documented as of this encounter Visit Diagnoses Not on filedocumented in this encounter Additional Health Concerns Infection Onset Date Last Indicated Resolved Time COVID19 Pending 09/23/2019 09/23/2019 09/24/2019 8 :48 AM CDT COVID19 Pending 12/07/2021 12/07/2021 12/07/2021 5 :33 PM CDT COVID19 12/07/2021 12/07/2021 12/27/2021 4:45 AM CDT documented as of this encounter Care Teams Welder Fitter Arc Relationship Specialty Start Date End Date Elsewhere, Pcp PCP - General Internal Medicine 04/20/22 documented as of this encounter
--- OUTSIDE RECORDS SUMMARY | 2023-05-09 20:46 | XMS_ITS | Encounter Summary ---
Author Name Unknown Organization [facility] Address [address] [place] [address] Care Team Providers Care Computer Aide Name Role Phone Elsewhere, Pcp Primary Care Provider Unavailabl e Encounter Details Date Type Department Care Team (Late st Contact Info) Description 08/19/2017 Historical Ophthalmology RST OPH Dahiana Saenz M.D. [address] [phone] Social History Tobacco Use Types Packs/Day Years Used Date Smoking Tobacco: Former Sex and Gender Information Value Date Recorded Sex Assigned at Female 09/29/2017 12:58 PM CDT Gender Identity Female 09/29/2017 12:58 PM CDT Sexual Orientation Lesbian or Griffiths 09/29/2017 12 :58 PM CDT documented as of this encounter Progress Notes * Dahiana Saenz M.D. - 08/19/2017 10:01 AM CDT Eye General CHIEF COMPLAINT Glaucoma follow up HISTORY OF PRESENT ILLNESS Stable vision; both eyes; constantly; unchanged since last visit. Denies ocular pain; has noticed that eyes will get hot and prickly feeling; uses a cold pack. IMPRESSION / REPORT / PLAN #1 Primary open angle glaucoma Familiy history: no Diagnosis: 2 years ago Current medications: travatan, cosopt Lasers/surgeries: s/p LASIK 2000 Allergies glaucoma drops: None Renal disease: No Asthma: No Tmax: Unknown to patient CCT: 470/427 03/2016 VF 24-2: right not performed, left, reliable, superior arcuate, stable from 08/15 VF (10-2): Right - normal. Left - superior arcuate with temporal islan preserved 03/2016 OCT: right Superior loss, left inferior loss, 81, 70 avg RNFL 7,6 SS, stable from 08/15 Fundus pictures: consistent with exam 08/18/16 OCT: right Superior loss, left inferior loss, 81, 70 avg RNFL 7,6 SS, stable from 08/15 VF08/18/16: 10-2 normal right, superior defect left Plan: Had IOP of 23 as measured by local eye provider (patient had been using predforte for redness) Today IOP better but still higher than goal and VF 10-2 left eye close to fixation. Will recheck IOP in 2 weeks and will schedule trab left eye first in 4 weeks, right eye later. (patient has thin corneas, s/p LASIK) IOP goal 10-11 mmHg Continue same medications: dorzolamide-timolol and travatan Now brimonidine allergy. Stop brimonidine #2 High myope s/p LASIK in 2000 DIAGNOSIS #1 Primary open angle glaucoma #2 High myope CDM Reports - EYEGEN Id: [id number] Status: Fnl documented in this encounter Plan of Treatment Upcoming Encounters Date Type Department Care Team (Late st Contact Info) Description 07/06/2023 3:00 PM IMPREGNATING HELPER Ancillary Procedure Department of Ophthalmology in [place], [place] [address] [place] [address] Danial Jeffries M.D., Ph.D. [address] [place] [phone] 07/06/2023 3:30 PM IMPREGNATING HELPER Office Visit Department of Ophthalmology in [place], [place] [address] [place] [address] Danial Jeffries M.D., Ph.D. [address] [place] [phone] documented as of this encounter Visit Diagnoses Not on filedocumented in this encounter Additional Health Concerns Infection Onset Date Last Indicated Resolved Time COVID19 Pending 09/23/2019 09/23/2019 09/24/2019 8 :48 AM CDT COVID19 Pending 12/07/2021 12/07/2021 12/07/2021 5 :33 PM CDT COVID19 12/07/2021 12/07/2021 12/27/2021 4:45 AM CDT documented as of this encounter Care Teams Computer Aide Relationship Specialty Start Date End Date Elsewhere, Pcp PCP - General Internal Medicine 04/20/22 documented as of this encounter
--- OUTSIDE RECORDS SUMMARY | 2023-05-09 20:46 | XMS_ITS | Encounter Summary ---
Author Name Unknown Organization [facility] Address [address] [place] [address] Care Team Providers Care Nuclear Power Plant Engineer Name Role Phone Elsewhere, Pcp Primary Care Provider Unavailabl e Reason for Visit * Reason Comments Med Refill Encounter Details Date Type Department Care Team (Late st Contact Info) Description 05/18/2022 Refill Department of Ophthalmology in [place], [place] [address] [place] [phone] Danial Jeffries M.D., Ph.D. [address] [place] [address] Med Refill Social History Tobacco Use Types [...] any clubs o r organizations such as episcopalian groups, unions, fraternal or athletic groups, or [...] on one occasion? Less than monthly 07/09/2019 [facility] [place] [facility] Occupat ional Health - [...] st Contact Info) Description 07/06/2023 3:00 PM HOSPITALITY AIDE Ancillary Procedure Department of Ophthalmology in [place], [place] [address] [place] [phone] Danial Jeffries M.D., Ph.D. [address] [place] [phone] 07/06/2023 3:30 PM HOSPITALITY AIDE Office Visit Department of Ophthalmology in [place], [place] [address] [place] [phone] Danial Jeffries M.D., Ph.D. [address] [place] [phone] documented as of this encounter Visit Diagnoses Not on filedocumented in this encounter Care Teams Nuclear Power Plant Engineer Relationship Specialty Start Date End Date Elsewhere, Pcp PCP - General Internal Medicine 04/20/22 documented as of this encounter
--- OUTSIDE RECORDS SUMMARY | 2023-05-09 20:46 | XMS_ITS | Encounter Summary ---
Author Name Unknown Organization [facility] Address [address] [place] [address] Care Team Providers Care Label Fuser Tender Name Role Phone Elsewhere, Pcp Primary Care Provider Unavailabl e Reason for Referral * Outpatient (Routine) - Closed Specialty Diagnoses / Procedures Referred By Pepper collins Referred To Contact Ophthalmology Danial Jeffries M.D., Ph.D. [address] [place] [phone] [facility] Referral ID Status Reason Start Date Expiration Date Visits Re quested Visits Authorized [id number] Closed 06/09/2022 06/08/2025 1 1 WORKER Reason for Visit * Reason Comments Post-op Follow-up * Outpatient (Routine) - Closed Specialty Diagnoses / Procedures Referred By Pepper collins Referred To Contact Ophthalmology Danial Jeffries M.D., Ph.D. [address] [place] [phone] [facility] Referral ID Status Reason Start Date Expiration Date Visits Re quested Visits Authorized [id number] Closed 04/05/2022 04/04/2025 1 1 Encounter Details Date Type Department Care Team (Latest Contact Info) Description 06/09/2022 10:45 AM CAFE WORKER Office Visit Department of Ophthalmology in [place], [place] [address] [place] [phone] Danial Jeffries M.D., Ph.D. [address] [place] [address] Primary Open-Angle Glaucoma Severe Stage Bilateral (Primary [...] any clubs o r organizations such as gnosticism groups, unions, fraternal or athletic groups, or [...] on one occasion? Less than monthly 07/09/2019 [facility] Occupat ional Health - [...] Date Recorded Dental: Regular Dentist Yes 04/28/20 Education Answer Date Recorded What is the [...] Notes * Danial Jeffries M.D., Ph.D. 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 [address] [place] [phone] 07/06/2023 3:30 PM CAFE WORKER Office Visit Department of Ophthalmology in [place], [place] [address] [place] [address] Danial Jeffries M.D., Ph.D. [address] [place] [phone] Scheduled Referrals Name Type Priority Associated Diagnoses Order Schedule Ophthalmology office visit (clinic) Outpatient Referral Routine Expected: 06/30/2022, Expires: 09/07/2023 documented as of this encounter Visit Diagnoses Diagnosis Primary Open-Angle Glaucoma Severe Stage Bilateral- Primary documented in this encounter Care Teams Label Fuser Tender Relationship Specialty Start Date End Date Elsewhere, Pcp PCP - General Internal Medicine 04/20/22 documented as of this encounter
--- OUTSIDE RECORDS SUMMARY | 2023-05-09 20:46 | XMS_ITS | Encounter Summary ---
Author Name Unknown Organization [facility] Address [address] [place] [address] Care Team Providers Care Doll Wig Maker Name Role Phone Elsewhere, Pcp Primary Care Provider Unavailabl e Encounter Details Date Type Department Care Team (Late st Contact Info) Description 07/26/2017 Historical Ophthalmology RST OPH Dahiana Saenz M.D. [address] [phone] Social History Tobacco Use Types Packs/Day Years Used Date Smoking Tobacco: Unknown Sex and Gender Information Value Date Recorded Sex Assigned at Female 09/29/2017 12:58 PM CDT Gender Identity Female 09/29/2017 12:58 PM CDT Sexual Orientation Lesbian or Griffiths 09/29/2017 12 :58 PM CDT documented as of this encounter Progress Notes * Dahiana Saenz M.D. - 07/26/2017 12:57 PM CDT Eye General CHIEF COMPLAINT Elevated IOP HISTORY OF PRESENT ILLNESS Stable vision; both eyes; constantly; unchanged since last visit. Denies ocular pain. Redness; botheyes; on and off; x 1 month. Pressures of 19; 23 2-3 weeks ago; in [place], [place]. IMPRESSION / REPORT / PLAN #1 Primary [...] thin corneas, s/p LASIK) IOP at goal (03/11) Continue same medications: dorzolamide-timolol, brimonidine and travatan #2 High myope s/p LASIK in 2000 DIAGNOSIS #1 Primary open angle glaucoma #2 High myope CDM Reports - EYEGEN Id: [id number] Status: Fnl documented in this encounter Plan of Treatment Upcoming Encounters Date Type Department Care Team (Late st Contact Info) Description 07/06/2023 3:00 PM AIRBRUSH ARTIST Ancillary Procedure Department of Ophthalmology in [place], [place] [address] [place] [phone] Danial Jeffries M.D., Ph.D. [address] [place] [phone] 07/06/2023 3:30 PM AIRBRUSH ARTIST Office Visit Department of Ophthalmology in [place], [place] [address] [place] [phone] Danial Jeffries M.D., Ph.D. [address] [place] [phone] documented as of this encounter Visit Diagnoses Not on filedocumented in this encounter Additional Health Concerns Infection Onset Date Last Indicated Resolved Time COVID19 Pending 09/23/2019 09/23/2019 09/24/2019 8 :48 AM CDT COVID19 Pending 12/07/2021 12/07/2021 12/07/2021 5 :33 PM CDT COVID19 12/07/2021 12/07/2021 12/27/2021 4:45 AM CDT documented as of this encounter Care Teams Doll Wig Maker Relationship Specialty Start Date End Date Elsewhere, Pcp PCP - General Internal Medicine 04/20/22 documented as of this encounter
--- OUTSIDE RECORDS SUMMARY | 2023-05-09 20:46 | XMS_ITS | Encounter Summary ---
Author Name Unknown Organization [facility] Address [address] [place] [address] Care Team Providers Care Stitcher Set Up Operator Automatic Name Role Phone Elsewhere, Pcp Primary Care Provider Unavailabl e Encounter Details Date Type Department Care Team (Late st Contact Info) Description 08/29/2015 Historical Ophthalmology RST OPH Dahiana Saenz M.D. [address] [phone] Social History Tobacco Use Types Packs/Day Years Used Date Smoking Tobacco: Never Assessed Sex and Gender Information Value Date Recorded Sex Assigned at Female 09/29/2017 12:58 PM CDT Gender Identity Female 09/29/2017 12:58 PM CDT Sexual Orientation Lesbian or Griffiths 09/29/2017 12 :58 PM CDT documented as of this encounter Progress Notes * Dahiana Saenz M.D. - 08/29/2015 12:49 PM CDT Eye General CHIEF COMPLAINT pressure check HISTORY OF PRESENT ILLNESS This is a 59 year old female here today for followup on Primary open angle glaucoma. Denies any newconcerns. IMPRESSION / REPORT / PLAN The following tests have been completed and need interpretation. Lin visual field #1 Primary open angle glaucoma Familiy history: no Diagnosis: 2 years ago Current medications: travatan, timolol Lasers/surgeries: s/p LASIK 2000 Allergies glaucoma drops: None Renal disease: No Asthma: No Tmax: Unknown to patient CCT: 470/427 VF: right normal, left superior arcuate OCT: right Superior loss, left inferior loss, 80, 70 avg RNFL 6,7 SS Fundus pictures: consistent with exam Plan: Need IOP lower in left eyes (patient has thin corneas, s/p LASIK) Start cosopt bid OU, stop timolol, continue travatan. RTC 1 month for IOP cjheck locally, 3 months with me with VF 24-2 and 10-2 If IOP not at goal might try brimonidine or do trabeculectomy left eye, since Vsual field defect isso close to fixation. #2 High myope s/p LASIK in 2000 DIAGNOSIS #1 Primary open angle glaucoma #2 High myope CDM Reports - EYEGEN Id: [id number] Status: Fnl documented in this encounter Plan of Treatment Upcoming Encounters Date Type Department Care Team (Late st Contact Info) Description 07/06/2023 3:00 PM SPORTS UMPIRE Ancillary Procedure Department of Ophthalmology in [place], [place] [address] [place] [phone] Danial Jeffries M.D., Ph.D. [address] [place] [phone] 07/06/2023 3:30 PM SPORTS UMPIRE Office Visit Department of Ophthalmology in [place], [place] [address] [place] [phone] Danial Jeffries M.D., Ph.D. [address] [place] [phone] documented as of this encounter Visit Diagnoses Not on filedocumented in this encounter Additional Health Concerns Infection Onset Date Last Indicated Resolved Time COVID19 Pending 09/23/2019 09/23/2019 09/24/2019 8 :48 AM CDT COVID19 Pending 12/07/2021 12/07/2021 12/07/2021 5 :33 PM CDT COVID19 12/07/2021 12/07/2021 12/27/2021 4:45 AM CDT documented as of this encounter Care Teams Stitcher Set Up Operator Automatic Relationship Specialty Start Date End Date Elsewhere, Pcp PCP - General Internal Medicine 04/20/22 documented as of this encounter
--- OUTSIDE RECORDS SUMMARY | 2023-05-09 20:46 | XMS_ITS | Encounter Summary ---
Author Name Unknown Organization [facility] Address [address] [place] [address] Care Team Providers Care Client Evaluator Name Role Phone Elsewhere, Pcp Primary Care Provider Unavailabl e Encounter Details Date Type Department Care Team (Late st Contact Info) Description 08/18/2016 Historical Ophthalmology RST OPH Dahiana Saenz M.D. [address] [phone] Social History Tobacco Use Types Packs/Day Years Used Date Smoking Tobacco: Never Assessed Sex and Gender Information Value Date Recorded Sex Assigned at Female 09/29/2017 12:58 PM CDT Gender Identity Female 09/29/2017 12:58 PM CDT Sexual Orientation Lesbian or Griffiths 09/29/2017 12 :58 PM CDT documented as of this encounter Progress Notes * Dahiana Saenz M.D. - 08/18/2016 1:32 PM CDT Eye General CHIEF COMPLAINT pressure check and testing HISTORY OF PRESENT ILLNESS Follow up today for primary open angle glaucoma. No problem instilling eye drops. No vision changes. IMPRESSION / REPORT / PLAN #1 Primary open angle glaucoma Familiy history: no Diagnosis: 2 years ago Current medications: travatan, cosopt Lasers/surgeries: s/p LASIK 2000 Allergies glaucoma drops: None Renal disease: No Asthma: No Tmax: Unknown to patient CCT: 470/427 03/2016 VF 24-2: right not performed, left, reliable, superior arcuate, stable from 16 VF (10-2): Right - normal. Left - superior arcuate with temporal islan preserved 03/2016 OCT: right Superior loss, left inferior loss, 81, 70 avg RNFL 7,6 SS, stable from 08/15 Fundus pictures: consistent with exam 08/18/16 OCT: right Superior loss, left inferior loss, 81, 70 avg RNFL 7,6 SS, stable from 08/15 VF08/18/16: 10-2 normal right, superior defect left Plan: (patient has thin corneas, s/p LASIK) IOP at goal (03/11) Continue same medications: dorzolamide-timolol and travatan Patient has monthly IOP checks locally. return in 4 months with VF 10-2 left eye #2 High myope s/p LASIK in 2000 DIAGNOSIS #1 Primary open angle glaucoma #2 High myope CDM Reports - EYEGEN Id: [id number] Status: Fnl documented in this encounter Plan of Treatment Upcoming Encounters Date Type Department Care Team (Late st Contact Info) Description 07/06/2023 3:00 PM SPINNING MULE OPERATOR Ancillary Procedure Department of Ophthalmology in [place], [place] [address] [place] [address] Danial Jeffries M.D., Ph.D. [address] [place] [phone] 07/06/2023 3:30 PM SPINNING MULE OPERATOR Office Visit Department of Ophthalmology in [place], [place] [address] [place] [phone] Danial Jeffries M.D., Ph.D. [address] [place] [phone] documented as of this encounter Visit Diagnoses Not on filedocumented in this encounter Additional Health Concerns Infection Onset Date Last Indicated Resolved Time COVID19 Pending 09/23/2019 09/23/2019 09/24/2019 8 :48 AM CDT COVID19 Pending 12/07/2021 12/07/2021 12/07/2021 5 :33 PM CDT COVID19 12/07/2021 12/07/2021 12/27/2021 4:45 AM CDT documented as of this encounter Care Teams Client Evaluator Relationship Specialty Start Date End Date Elsewhere, Pcp PCP - General Internal Medicine 04/20/22 documented as of this encounter
--- OUTSIDE RECORDS SUMMARY | 2023-05-09 20:46 | XMS_ITS | Encounter Summary ---
Author Name Unknown Organization [facility] Address [address] [place] [address] Care Team Providers Care Clinical Analyst Name Role Phone Elsewhere, Pcp Primary Care Provider Unavailabl e Encounter Details Date Type Department Care Team (Late st Contact Info) Description 10/05/2022 [facility] [address] [place] [address] Cyndy Andrade M.D. [address] [place] [phone] Restless Leg Syndrome (Primary Dx) Social History [...] any clubs o r organizations such as temple groups, unions, fraternal or athletic groups, or [...] Less than monthly 07/09/2019 [facility] - Occupational [...] st Contact Info) Description 07/06/2023 3:00 PM SLIP BOX CHANGER Ancillary Procedure Department of Ophthalmology in [place], [place] [address] [place] [phone] Danial Jeffries M.D., Ph.D. [address] [place] [phone] 07/06/2023 3:30 PM SLIP BOX CHANGER Office Visit Department of Ophthalmology in [place], [place] [address] [place] [phone] Danial Jeffries M.D., Ph.D. [address] [place] [phone] documented as of this encounter Visit Diagnoses Diagnosis Restless Leg Syndrome- Primary documented in this encounter Care Teams Clinical Analyst Relationship Specialty Start Date End Date Elsewhere, Pcp PCP - General Internal Medicine 04/20/22 documented as of this encounter
--- OUTSIDE RECORDS SUMMARY | 2023-05-09 20:46 | XMS_ITS | Encounter Summary ---
Author Name Unknown Organization [facility] Address [address] [place] [address] Care Team Providers Care Head Of Ict Name Role Phone Elsewhere, Pcp Primary Care Provider Unavailabl e Encounter Details Date Type Department Care Team (Late st Contact Info) Description 09/01/2017 Historical Ophthalmology RST OPH Danial Jeffries M.D., Ph.D. [address] [place] [phone] Social History Tobacco Use Types Packs/Day Years Used Date Smoking Tobacco: Former Sex and Gender Information Value Date Recorded Sex Assigned at Female 09/29/2017 12:58 PM CDT Gender Identity Female 09/29/2017 12:58 PM CDT Sexual Orientation Lesbian or Griffiths 09/29/2017 12 :58 PM CDT documented as of this encounter Progress Notes * Danial Jeffries M.D., Ph.D. - 09/01/2017 12:59 PM CDT Eye Postoperative MULTI-VISIT DOCUMENT This document contains multiple patient visits and is available for review in Document Viewer. CDM Reports - EYEPO Id: [id number] Status: Fnl documented in this encounter Plan of Treatment Upcoming Encounters Date Type Department Care Team (Late st Contact Info) Description 07/06/2023 3:[address]DER Ancillary Procedure Department of Ophthalmology in [place], [place] [address] [place] [phone] Danial Jeffries M.D., Ph.D. [address] [place] [phone] 07/06/2023 3:[address] Office Visit Department of Ophthalmology in [place], [place] [address] [place] [phone] Danial Jeffries M.D., Ph.D. [address] [place] [phone] documented as of this encounter Visit Diagnoses Not on filedocumented in this encounter Additional Health Concerns Infection Onset Date Last Indicated Resolved Time COVID19 Pending 09/23/2019 09/23/2019 09/24/2019 8 :48 AM CDT COVID19 Pending 12/07/2021 12/07/2021 12/07/2021 5 :33 PM CDT COVID19 12/07/2021 12/07/2021 12/27/2021 4:45 AM CDT documented as of this encounter Care Teams Head Of Ict Relationship Specialty Start Date End Date Elsewhere, Pcp PCP - General Internal Medicine 04/20/22 documented as of this encounter
--- OUTSIDE RECORDS SUMMARY | 2023-05-09 20:46 | XMS_ITS | Encounter Summary ---
Author Name Unknown Organization [facility] Address [address] [place] [address] Care Team Providers Care E Marketing Specialist Name Role Phone Elsewhere, Pcp Primary Care Provider Unavailabl e Encounter Details Date Type Department Care Team (Latest Contact Info) Description 10/06/2022 8:30 AM CDT Ancillary Procedure Department of Ophthalmology in [place], [place] [address] [place] [address] Danial Jeffries M.D., Ph.D. [address] [place] [phone] Primary Open-Angle Glaucoma Severe Stage Bilateral Social [...] often do you attend chur ch or methodist services? 1 to 4 times per year 07/09/2019 Do you belong to any clubs o r organizations such as methodist groups, unions, fraternal or athletic groups, or [...] Contact Info) Description 07/06/2023 3:00 PM AIR CARGO GROUND OPERATIONS SUPERVISOR Ancillary Procedure Department of Ophthalmology in [place], [place] [address] [place] [phone] Danial Jeffries M.D., Ph.D. [address] [place] [phone] 07/06/2023 3:30 PM AIR CARGO GROUND OPERATIONS SUPERVISOR Office Visit Department of Ophthalmology in [place], [place] [address] [place] [phone] Danial Jeffries M.D., Ph.D. [address] [place] [phone] documented as of this encounter Procedures Procedure Name Priority Date/Time Associated Diagnosis Comments AUTOMATED VF - EXTENDED - OU - BOTH EYES Routine 10/06/2022 8:32 AM CDT Primary Open-Angle Glaucoma Severe Stage [...] Bilateral documented in this encounter Care Teams E Marketing Specialist Relationship Specialty Start Date End Date Elsewhere, Pcp PCP - General Internal Medicine 04/20/22 documented as of this encounter
--- OUTSIDE RECORDS SUMMARY | 2023-05-09 20:46 | XMS_ITS | Encounter Summary ---
Author Name Unknown Organization [facility] Address [address] [place] [address] Care Team Providers Care Server Name Role Phone Elsewhere, Pcp Primary Care Provider Unavailabl e Reason for Visit * Reason Comments Med Refill Encounter Details Date Type Department Care Team (Late st Contact Info) Description 05/18/2022 Refill Department of Ophthalmology in [place], [place] [address] [place] [phone] Abbi Neal M.D., M.S. [address] [place] [phone] Med Refill Social History Tobacco Use Types [...] any clubs o r organizations such as pentecostal groups, unions, fraternal or athletic groups, or [...] on one occasion? Less than monthly 07/09/2019 [facility] - Occupational Stress Questionnaire Answer Date [...] st Contact Info) Description 07/06/2023 3:00 PM FARMWORKER LIVESTOCK Ancillary Procedure Department of Ophthalmology in [place], [place] [address] [place] [phone] Danial Jeffries M.D., Ph.D. [address] [place] [phone] 07/06/2023 3:30 PM FARMWORKER LIVESTOCK Office Visit Department of Ophthalmology in [place], [place] [address] [place] [phone] Danial Jeffries M.D., Ph.D. [address] [place] [phone] documented as of this encounter Visit Diagnoses Not on filedocumented in this encounter Care Teams Server Relationship Specialty Start Date End Date Elsewhere, Pcp PCP - General Internal Medicine 04/20/22 documented as of this encounter
--- OUTSIDE RECORDS SUMMARY | 2023-05-09 20:46 | XMS_ITS | Encounter Summary ---
Author Name Unknown Organization [facility] Address [address] [place] [address] Care Team Providers Care Blasting Cap Assembler Name Role Phone Elsewhere, Pcp Primary Care Provider Unavailabl e Reason for Visit * Reason Comments Med Refill Encounter Details Date Type Department Care Team (Late st Contact Info) Description 07/23/2022 Refill Department of Ophthalmology in [place], [place] [address] [place] [phone] Danial Jeffries M.D., Ph.D. [address] [place] [phone] Med Refill Social History Tobacco Use Types [...] often do you attend chur ch or gnosticism services? 1 to 4 times per year [...] on one occasion? Less than monthly 07/09/2019 [facility] - Occupational Stress [...] st Contact Info) Description 07/06/2023 3:00 PM WELT MAKER Ancillary Procedure Department of Ophthalmology in [place], [place] [address] [place] [phone] Danial Jeffries M.D., Ph.D. [address] [place] [phone] 07/06/2023 3:30 PM WELT MAKER Office Visit Department of Ophthalmology in [place], [place] [address] [place] [phone] Danial Jeffries M.D., Ph.D. [address] [place] [phone] documented as of this encounter Visit Diagnoses Not on filedocumented in this encounter Care Teams Blasting Cap Assembler Relationship Specialty Start Date End Date Elsewhere, Pcp PCP - General Internal Medicine 04/20/22 documented as of this encounter
--- OUTSIDE RECORDS SUMMARY | 2023-05-09 20:46 | XMS_ITS | Encounter Summary ---
Author Name Unknown Organization [facility] Address [address] [place] [address] Care Team Providers Care Heel Seat Filler Name Role Phone Elsewhere, Pcp Primary Care Provider Unavailabl e Encounter Details Date Type Department Care Team (Late st Contact Info) Description 03/31/2016 Historical Ophthalmology RST OPH Dahiana Saenz M.D. [address] [phone] Social History Tobacco Use Types Packs/Day Years Used Date Smoking Tobacco: Never Assessed Sex and Gender Information Value Date Recorded Sex Assigned at Female 09/29/2017 12:58 PM CDT Gender Identity Female 09/29/2017 12:58 PM CDT Sexual Orientation Lesbian or Griffiths 09/29/2017 12 :58 PM CDT documented as of this encounter Progress Notes * Dahiana Saenz M.D. - 03/31/2016 1:36 PM CST Eye General CHIEF COMPLAINT 4-Month Return HISTORY OF PRESENT ILLNESS No changes/concerns since last exam of 11/20/15. MMR: Has been getting monthly IOP checks which tend to run 01/09. IMPRESSION / REPORT / PLAN #1 Primary [...] from 08/15 Fundus pictures: consistent with exam Plan: (patient has thin corneas, s/p LASIK) IOP at goal (03/11) Continue same medications: dorzolamide-timolol and travatan Patient has monthly IOP checks locally. return in 4 months with VF 10-2 left eye and OCT #2 High myope s/p LASIK in 2000 DIAGNOSIS #1 Primary open angle glaucoma #2 High myope CDM Reports - EYEGEN Id: [id number] Status: Fnl documented in this encounter Plan of Treatment Upcoming Encounters Date Type Department Care Team (Late st Contact Info) Description 07/06/2023 3:00 PM BREAST BUFFER Ancillary Procedure Department of Ophthalmology in [place], [place] [address] [place] [phone] Danial Jeffries M.D., Ph.D. [address] [place] [phone] 07/06/2023 3:30 PM BREAST BUFFER Office Visit Department of Ophthalmology in [place], [place] [address] [place] [phone] Danial Jeffries M.D., Ph.D. [address] [place] [phone] documented as of this encounter Visit Diagnoses Not on filedocumented in this encounter Additional Health Concerns Infection Onset Date Last Indicated Resolved Time COVID19 Pending 09/23/2019 09/23/2019 09/24/2019 8 :48 AM CDT COVID19 Pending 12/07/2021 12/07/2021 12/07/2021 5 :33 PM CDT COVID19 12/07/2021 12/07/2021 12/27/2021 4:45 AM CDT documented as of this encounter Care Teams Heel Seat Filler Relationship Specialty Start Date End Date Elsewhere, Pcp PCP - General Internal Medicine 04/20/22 documented as of this encounter
--- OUTSIDE RECORDS SUMMARY | 2023-05-09 20:46 | XMS_ITS | Encounter Summary ---
Author Name Unknown Organization [facility] Address [address] [place] [address] Care Team Providers Care Road Mixer Operator Name Role Phone Elsewhere, Pcp Primary Care Provider Unavailabl e Reason for Visit * Reason Comments Post-op Follow-up * Outpatient (Routine) - Closed Specialty Diagnoses / Procedures Referred By Contac t Referred To Contact Ophthalmology Danial Jeffries M.D., Ph.D. [address] [place] [phone] [facility] Referral ID Status Reason Start Date Expiration Date Visits Re quested Visits Authorized [id number] Closed 04/05/2022 04/04/2025 1 1 Encounter Details Date Type Department Care Team (Latest Contact Info) Description 05/17/2022 11:30 AM REAMING MACHINE OPERATOR Office Visit Department of Ophthalmology in [place], [place] [address] [place] [phone] Danial Jeffries M.D., Ph.D. [address] [place] [phone] Primary Open-Angle Glaucoma Severe Stage Bilateral (Primary [...] family, friends, or neighbors? Twice a week 03/09/20 20 How often do you get togethe r with friends or relatives? Twice a week 07/09/2019 How often do you attend chur ch or evangelical services? 1 to 4 times per year 07/09/2019 Do you belong to any clubs o r organizations such as jainism groups, unions, fraternal or athletic groups, or [...] Notes * Danial Jeffries M.D., Ph.D. - 05/17/2022 11:30 AM CST #1 s/p [place] fenestrated baerveldt, left eye, 04/20/[address] large diameter BCL- 18 Decrease prednisolone acetate BID, operative eye Continue Vigamox QID, operative eye Return 2 weeks - warnings and precautions discussed Glaucoma EYE DROPS RIGHT: Latanoprost QHS, timolol qam LEFT: Holding # Ptosis, left>right Likely post surgical Will request consult in near future ING MACHINE OPERATOR documented in this encounter Plan of Treatment Upcoming Encounters Date Type Department Care Team (Late st Contact Info) Description 07/06/2023 3:00 PM REAMING MACHINE OPERATOR Ancillary Procedure Department of Ophthalmology in [place], [place] [address] [place] [phone] Danial Jeffries M.D., Ph.D. [address] [place] [phone] 07/06/2023 3:30 PM REAMING MACHINE OPERATOR Office Visit Department of Ophthalmology in [place], [place] [address] [place] [phone] Danial Jeffries M.D., Ph.D. [address] [place] [phone] documented as of this encounter Visit Diagnoses Diagnosis Primary Open-Angle Glaucoma Severe Stage Bilateral- Primary documented in this encounter Care Teams Road Mixer Operator Relationship Specialty Start Date End Date Elsewhere, Pcp PCP - General Internal Medicine 04/20/22 documented as of this encounter
--- OUTSIDE RECORDS SUMMARY | 2023-05-09 20:46 | XMS_ITS | Encounter Summary ---
Author Name Unknown Organization [facility] Address [address] [place] [address] Care Team Providers Care Visual Specialist Name Role Phone Elsewhere, Pcp Primary Care Provider Unavailabl e Encounter Details Date Type Department Care Team (Late st Contact Info) Description 11/10/2016 Historical Ophthalmology RST OPH Dahiana Saenz M.D. [address] [phone] Social History Tobacco Use Types Packs/Day Years Used Date Smoking Tobacco: Never Assessed Sex and Gender Information Value Date Recorded Sex Assigned at Female 09/29/2017 12:58 PM CDT Gender Identity Female 09/29/2017 12:58 PM CDT Sexual Orientation Lesbian or Griffiths 09/29/2017 12 :58 PM CDT documented as of this encounter Progress Notes * Dahiana Saenz M.D. - 11/10/2016 8:52 AM CDT Eye General CHIEF COMPLAINT Glaucoma follow up HISTORY OF PRESENT ILLNESS Stable vision; both eyes; constantly; x 3 months; unchanged. Floaters; both eyes; x several years; unchanged. IMPRESSION / REPORT / PLAN #1 Primary [...] (03/11) Continue same medications: dorzolamide-timolol and travatan Add brimonidine both eyes Patient has monthly IOP checks locally ([place]) return in 4 months with VF 10-2 left eye and OCT #2 High myope s/p LASIK in 2000 DIAGNOSIS #1 Primary open angle glaucoma #2 High myope CDM Reports - EYEGEN Id: [id number] Status: Fnl documented in this encounter Plan of Treatment Upcoming Encounters Date Type Department Care Team (Late st Contact Info) Description 07/06/2023 3:00 PM JOB COACHING Ancillary Procedure Department of Ophthalmology in [place], [place] [address] [place] [phone] Danial Jeffries M.D., Ph.D. [address] [place] [phone] 07/06/2023 3:30 PM JOB COACHING Office Visit Department of Ophthalmology in [place], [place] [address] [place] [phone] Danial Jeffries M.D., Ph.D. [address] [place] [phone] documented as of this encounter Visit Diagnoses Not on filedocumented in this encounter Additional Health Concerns Infection Onset Date Last Indicated Resolved Time COVID19 Pending 09/23/2019 09/23/2019 09/24/2019 8 :48 AM CDT COVID19 Pending 12/07/2021 12/07/2021 12/07/2021 5 :33 PM CDT COVID19 12/07/2021 12/07/2021 12/27/2021 4:45 AM CDT documented as of this encounter Care Teams Visual Specialist Relationship Specialty Start Date End Date Elsewhere, Pcp PCP - General Internal Medicine 04/20/22 documented as of this encounter
--- OUTSIDE RECORDS SUMMARY | 2023-05-09 20:47 | XMS_ITS | Clinical Summary ---
Author Name Unknown Organization [facility] Address [place], [place] [address] Care Team Providers Care X Ray Technologist Name Role Phone Pcp, No Primary Care Provider Unavailabl e Allergies No known active allergies Medications Medication Sig Dispensed Refills Start Date End Date Status Smmn-Wseo-WPO#1-C-[facility]ady- Refugio-Bor (OSTEO BI-FLEX) 750-625-30 mg Tab Take by mouth. 0 01/26/2011 Act sandra pramipexole (MIRAPEX) 0.5 mg tabletIndications:Restl ess legs syndrome (RLS) 1 tablet by mouth in the morning and 2 tablets in the evening 270 tablet 4 09/07/2016 Active dorzolamide-timolol (COSOPT) 2-0.5 % ophthalmic solutionIndications:Ana brito open-angle glaucoma, moderate stage, unspecified laterality INSTILL 1 DROP IN BOTH EYES TWICE DAILY 10 mL 5 10/04/2016 Active acyclovir (ZOVIRAX) 400 mg tabletIndications:Herpe tic gingivostomatitis TAKE 1 TABLET BY MOUTH 5 TIMES DAILY FOR 1 DAY NEEDED FOR COLD SORES 25 tablet 0 11/25/2016 Active brimonidine (ALPHAGAN) 0.2 % ophthalmic solution INT 1 DROP IN OU BID 11 12/10/2016 Active travoprost 0.004% (TRAVATAN Z) 0.004 % ophthalmic solutionIndications:Ana brito open-angle glaucoma, moderate stage, unspecified laterality Place 1 Drop into both eyes at bedtime. 1 Bottle 6 01/31/2017 Active Lidocaine-Hydrocortison e Ga 3-0.5 % creaIndications:Hemorrh oids, external Insert rectally 4 times daily before meals and at bedtime. 1 Tube 0 02/02/2017 Active clonazePAM (KLONOPIN) 1 mg tabletIndications:Restl ess legs syndrome (RLS) Take 1 tablet by mouth at bedtime. 30 tablet 0 04/19/2017 Active rosuvastatin (CRESTOR) 10 mg tabletIndications:Hyper lipidemia LDL goal <130 TAKE 1 TABLET BY MOUTH AT BEDTIME 30 tablet 0 10/13/2017 Active lisinopril-hydrochlorot hiazide, 20-25 mg, (PRINZIDE, ZESTORETIC) 20-25 mg per tabletIndications:Hyper tension TAKE 1 TABLET BY MOUTH EVERY DAY 90 tablet 0 10/25/2017 Active azithromycin (Zithromax Z-Chano) 250 mg tabletIndications:Atypi terrie pneumonia Take 500 mg (2 tabs) by mouth on day 1, then 250 mg (1 tab) daily for days 2-5. 6 Tablet 0 02/01/2022 Active benzonatate (Tessalon Perles) 100 mg capsuleIndications:Atyp ical pneumonia Take 1 Capsule (100 mg) by mouth 3 times daily if needed for Cough. 30 Capsule 0 02/01/2022 Active Active Problems Problem Noted Date Diagnosed Date Controlled substance agreement signed 03/18/2017 Overview: Receives #30 clonazepam 1 mg daily for RLS. CSA signed 03/18/17. Hyperlipidemia LDL goal <130 04/10/2015 Routine adult health maintenance 10/09/2014 Overview: Colonoscopy 09/2014 inflammatory polyp repeat in 5 years Hypertension 07/02/2014 POAG (primary open-angle glaucoma) 11/06/2012 Restless legs syndrome (RLS) 01/26/2011 Herpetic gingivostomatitis 07/12/2007 Sensorineural hearing loss, unspecified 10/25/19 07 Chronic low back pain Resolved Problems Problem Noted Date Diagnosed Date Resolved Date Glaucoma suspect 05/10/2012 05/13/2014 Sudden hearing loss, unspecified 10/24/2006 10/23/2007 Unspecified hearing loss 10/20/2006 Immunizations Name Administration Dates Next Due HepA-HepB (Twinrix) 05/04/2012,10/25/2011,2011 Influenza, IIV3 (Age >=3 years) 05/11/2012,01/26,01/13/2010,01/30/2009 Influenza, IIV4 01/19/2017, 6,04/15/2015,04/04/2015( Deferred: Patient Refused),03/27/2014 Td (Age >=7 Years) 05/14/2009 Tdap 05/28/2005 Zoster (Zostavax-ZVL, live) 04/15/2015 Family History Medical History Relation Name Comments Good Health Brother Allergies Mother hayfever GI Disease Mother due to cirrhosis ', ?med reaction Cancer-breast No Family History Cancer-colon No Family History Relation Name Status Comments Brother Alive Father Maternal Grandfather Maternal Grandmother Mother cirrhosis, ?med reaction Paternal Grandfather Paternal Grandmother Social History Tobacco Use Types Packs/Day Years Used Date Smoking Tobacco: Former Cigarettes 0.5 20 0 05/14/1989 - 05/14/2009 Smokeless Tobacco: Never Tobacco Cessation:Counseling Given: Yes Alcohol Use Standard Drinks/Week Comments Yes 0 (1 standard drink = 0.6 oz pur e alcohol) Social Connections Answer Date Recorded Frequency of Communication with Friends and Fami ly Not on file 02/01/2022 Sex and Gender Information Value Date Recorded Sex Assigned at Not on file Gender Identity Not on file Sexual Orientation Not on file Obstetrics History Last Filed Vital Signs Vital Sign Reading Time Taken Comments Blood Pressure 144/83 02/01/2022 7:31 AM CDT Pulse 50 02/01/2022 7:31 AM CDT Temperature 36.6 ??C (97.8 ??F) 02/01/2022 7:31 AM CD T Respiratory Rate 18 09/05/2015 8:35 AM CDT Oxygen Saturation 100% 02/01/2022 7:31 AM CDT Inhaled Oxygen Concentration - - Weight 82.7 kg (182 lb 6.4 oz) 02/01/2022 7:31 A M CDT Height 169.5 cm (5' 6.73) 03/18/2017 8:13 AM CS T Body Mass Index 28.8 03/18/2017 8:13 AM CORRECTIONAL COUNSELOR Plan of Treatment Health Maintenance Due Date Last Done Comments Zoster (shingles) series for age 50+ (2 of 3) 06/10/2015 04/15/2015 Depression screening for age 12+ 09/17/2017 09/17/2016, 09/07/2016, 09/05/2015 Mammogram for age 45-75 09/17/2017 09/18/19 17, 07/25/2014, 07/18/2013, Additional history exists BMI (ht and wt on same day) for age 18+ 03/18/2018 03/18/2017, 02/23/2017, 02/02/2017, Additional history exists DEXA/DXA scan for age 65+ 2018 10/30/2013 Medicare Wellness for age 65+ 2018 Pneumococcal series for age 65+ (1 of 1 - PCV) 2018 Tetanus booster 05/14/2019 05/14/2009, 05/28/2005 Lipids for age 45-75 09/09/2021 09/09/2016, 09/05/2015, 04/09/2015, Additional history exists COVID-19 vaccine series (2022-24 season) 2022 10/13/2021, 05/21/2021, 07/29/2020, Additional history exists Influenza for age 65+ 12/31/2022 01/19/2017 , 01/27/2016, 04/15/2015, Additional history exists Colonoscopy through age 75 10/08/202410/08, 10/08/2014, 10/30/2004 (Completed outside of [facility]) Tdap Completed 05/28/2005 Hepatitis C screening for ag e 18-79 Completed 08/27/2011 Advance Directives Documents on File Type Date Recorded Patient Chucking And Boring Machine Operator Expl anation Healthcare Directive 04/29/2011 12:00 AM ADVANCE DIRECTIVE Healthcare Directive 04/10/2007 HEALTH CARE DIRECTIVE, [facility] 04/10/2007 Healthcare Directive 03/20/2007 12:00 AM ADVANCED DIRECTIVE Healthcare Directive 02/22/2007 12:00 AM ADVANCE DIRECTIVE Care Teams X Ray Technologist Relationship Specialty Start Date End Date Pcp, No . PCP - General 06/15/17
--- OUTSIDE RECORDS SUMMARY | 2023-05-09 20:47 | XMS_ITS | Encounter Summary ---
Author Name Unknown Organization [facility] Address [address] [place] [address] Care Team Providers Care Operator Name Role Phone Elsewhere, Pcp Primary Care Provider Unavailabl e Encounter Details Date Type Department Care Team (Late st Contact Info) Description 08/13/2015 Historical Ophthalmology RST OPH Dahiana Saenz M.D. [address] [phone] Social History Tobacco Use Types Packs/Day Years Used Date Smoking Tobacco: Never Assessed Sex and Gender Information Value Date Recorded Sex Assigned at Female 09/29/2017 12:58 PM CDT Gender Identity Female 09/29/2017 12:58 PM CDT Sexual Orientation Lesbian or Griffiths 09/29/2017 12 :58 PM CDT documented as of this encounter Progress Notes * Dahiana Saenz M.D. - 08/13/2015 7:36 AM CDT Eye General CHIEF COMPLAINT referral Glaucoma NOS HISTORY OF PRESENT ILLNESS The patient is a 59 year old female here today for a follow up regarding Glaucoma NOS. Patient notes that she is definately loosing some vision in her left eye; right eye is stable. Floaters alone; both eyes; x many years; constantly. Denies flashes of light, diplopia and ocular pain. IMPRESSION / REPORT / PLAN The following [...] bid OU, stop timolol, continue travatan. RTC 2-3 weeks for IOP check. If IOP not at goal might try brimonidine or do trabeculectomy left eye. #2 High myope s/p LASIK in 2000 DIAGNOSIS #1 Primary open angle glaucoma #2 High myope CDM Reports - EYEGEN Id: [id number] Status: Fnl documented in this encounter Plan of Treatment Upcoming Encounters Date Type Department Care Team (Late st [facility] Info) Description 07/06/2023 3:00 PM CIGAR PATCHER Ancillary Procedure Department of Ophthalmology in [place], [place] [address] [place] [phone] Danial Jeffries M.D., Ph.D. [address] [place] [phone] 07/06/2023 3:30 PM CIGAR PATCHER Office Visit Department of Ophthalmology in [place], [place] [address] [place] [phone] Danial Jeffries M.D., Ph.D. [address] [place] [phone] documented as of this encounter Visit Diagnoses Not on filedocumented in this encounter Additional Health Concerns Infection Onset Date Last Indicated Resolved Time COVID19 Pending 09/23/2019 09/23/2019 09/24/2019 8 :48 AM CDT COVID19 Pending 12/07/2021 12/07/2021 12/07/2021 5 :33 PM CDT COVID19 12/07/2021 12/07/2021 12/27/2021 4:45 AM CDT documented as of this encounter Care Teams Operator Relationship Specialty Start Date End Date Elsewhere, Pcp PCP - General Internal Medicine 04/20/22 documented as of this encounter
== END 2023-05-04 08:36 | disposition home or self-care (01) ==
LOC: NFLDREF 05-09 20:42
PROVIDERS: PCP Family Medicine; Referring Provider Family Medicine; Visit Provider Family Medicine
DX: E55.9 Vitamin D deficiency, unspecified (principal); E78.5 Hyperlipidemia, unspecified; I10 Essential (primary) hypertension; R73.01 Impaired fasting glucose; M81.0 Age-related osteoporosis without current pathological fracture
CPT/HCPCS: 80053; 80061; 82306

== ENCOUNTER 2023-09-05 10:42 | Outpatient (CLI) | payer MEDICARE, SELFPAY ==
--- OUTSIDE RECORDS SUMMARY | 2023-09-05 10:44 | XMS_ITS | Referral Summary ---
Author Name Unknown Organization [facility] Address [address] [place] [address] Care Team Providers Care Land Surveyor Manager Name Role Phone Elsewhere, Pcp Primary Care Provider Unavailabl e Source Comments Patient records contain information from all sites at [facility]. For routine questions regarding patient records, call [phone] during business hours, M-F 8:00 AM - 5:00 PM Central Time. Record requests for emergency care only can be directed to [phone] at any time.[facility] Encounters Date Type Department Care Team Description 07/06/2023 2:30 PM INFORMATICS CONSULTANT Ancillary Procedure Department of Ophthalmology in [place], [place] [address] [place] [phone] Danial Jeffries M.D., Ph.D. Primary Open-Angle Glaucoma Severe Stage Bilateral 07/06/2023 3:30 PM INFORMATICS CONSULTANT Office Visit Department of Ophthalmology in [place], [place] [address] [place] [address] Danial Jeffries M.D., Ph.D. Primary Open-Angle Glaucoma Severe Stage Bilateral (Primary Dx) from Last 3 Months Allergies No known active allergies Medications Medication Sig Dispensed Refills Start Date End Date Status lisinopril-hydroCHLOR Othiazide (PRINZIDE,ZESTORETIC) 20-25 mg per tablet Take 1 tablet by mouth daily. 09/17/2016 Active LORazepam (ATIVAN) 1 mg tablet Take 1 tablet by mouth daily. 08/13/2015 Active pramipexole (MIRAPEX) 0.5 mg tablet Take 2 tablets by mouth daily. 08/13/2015 Active peg 400-propylene glycol, PF, (SYSTANE) 0.4-0.3 % ophthalmic solution Administer 1 drop into both eyes as needed. 11/20/2015 Active prednisoLONE acetate (PRED FORTE) 1 % ophthalmic suspension Administer 1 drop into the left eye 4 (four) times a day. Starting 3 days prior to surgery 5 mL 2 11/13/2021 Active Additional Information Patient not taking.Reported on 03/14/2023 cholecalciferol (VITAMIN D3) 50 mcg (2,000 Unit) capsule Take by mouth daily. 11/24/2021 Active gabapentin (NEURONTIN) 600 mg tablet Take 600 mg by mouth 3 (three) times a day. 11/10/2021 Active clonazePAM (KlonoPIN) 1 mg tablet Take 1 mg by mouth at bedtime as needed. 10/06/2021 Active rosuvastatin (CRESTOR) 10 mg tablet Take 10 mg by mouth daily. 12/07/2021 Active HYDROcodone-acetamino phen (NORCO) 5-325 mg per tablet 01/07/2022 Active prednisoLONE acetate (PRED FORTE) 1 % ophthalmic suspension Administer 1 drop into the left eye 4 (four) times a day. Start 3 days before surgery 10 mL 6 01/29/2022 Active Additional Information Patient not taking.Reported on 10/06/2022 ondansetron ODT (ZOFRAN-ODT) 4 mg disintegrating tablet 4 mg every 8 (eight) hours. 02/26/2022 Active oxyCODONE (ROXICODONE) 5 mg immediate release tablet Take 5 mg by mouth every 4 (four) hours as needed. for pain 02/26/2022 Active glucosamine/chondr walker A sod (glucosamine-chondroi tin) 1,500-1,200 mg/30 mL liquid 2 tablets. 01/15/2022 Active prednisoLONE acetate (PRED FORTE) 1 [...] Overview: Added automatically from request for surgery [id number] Age Related Nuclear Cataract Left Eye 05/28/2019 Overview: Added automatically from request for surgery [id number] Hypertension Essential Primary 09/19/2017 Hypercholesterolemia 09/19/2017 Restless [...] often do you attend chur ch or lutheran services? 1 to 4 times per year 07/09/2019 Do you belong to any clubs o r organizations such as faith groups, unions, fraternal or athletic groups, or [...] on one occasion? Less than monthly 07/09/2019 [facility]ational [facility] Questionnaire Answer Date [...] T Respiratory Rate 15 04/20/2022 11:10 AM INFORMATICS CONSULTANT Oxygen Saturation 96% 04/20/2022 11:10 AM INFORMATICS CONSULTANT Inhaled Oxygen Concentration - - Weight 82.1 kg (181 lb) 01/20/2023 7:52 AM CDT Height 168.2 cm (5' 6.22) 01/20/2023 7:52 AM CD T Body Mass Index 29.02 01/20/2023 7:52 AM CDT Plan of Treatment Not on file Medical Devices Implanted Type Area Criminology Professor Device Identifier Shelf Expiration Date Model / Serial / Lot Grleida Crn 9 - [id number] - [id number] Implanted:Qty : 1 on 04/20/2022 by aDnial Jeffries M.D., Ph.D. at [facility] Bone or Tissue Left: Eye [employer] (Prev. Tissue [employer]) 08/11/2023 [id number] / [id number] / Hardware E.G. Pins/Screws/R ods-08/24/1989 Implanted: (Quantity not on file) Hardware e.g. pins/screws /rods Right: Shoulder Agustín Saldana 350 - [id number] - [id number] Implanted:Qty : 1 on 04/20/2022 by Danial Jeffries M.D., Ph.D. at [facility] Ocular (Eye) Implant Left: Eye [employer] (Previously [employer]) 10/21/2023 [id number] / [id number] / Lens Acr Sa60at Ant +18.5d - [id number] - [id number] Implanted:Qty : 1 on 07/03/2019 by Danial Jeffries M.D., Ph.D. at [facility] Ocular Lens Right: Eye [employer] 01/30/2024 SA60AT.18 5 / [id number] / Lens Acr Sa60at Ant +20.5d - [id number] - [id number] Implanted:Qty : 1 on 09/26/2019 by Danial Jeffries M.D., Ph.D. at [facility] Ocular Lens [employer] 01/30/2024 SA60AT.20 5 / [id number] / Advance Directives For more information, please contact: [phone] Documents on File Type Date Recorded Patient Makeup Sales Advisor Expl anation Advance Directives 05/20/2022 8:59 AM INVA L[facility] Care Teams Land Surveyor Manager Relationship Specialty Start Date End Date Elsewhere, Pcp PCP - General Internal Medicine 04/20/22
--- OUTSIDE RECORDS SUMMARY | 2023-09-05 10:44 | XMS_ITS | Clinical Summary ---
Author Name Unknown Organization [facility] Address [address] [place] [address] Care Team Providers Care Assisted Sales Representative Name Role Phone Elsewhere, Pcp Primary Care Provider Unavailabl e Source Comments Patient records contain information from all sites at [facility]. For routine questions regarding patient records, call [phone] during business hours, M-F 8:00 AM - 5:00 PM Central Time. Record requests for emergency care only can be directed to [phone] at any time.[facility] Allergies No known active allergies Medications Medication [...] Overview: Added automatically from request for surgery [id number] Age Related Nuclear Cataract Left Eye 05/28/2019 Overview: Added automatically from request for surgery [id number] Hypertension Essential Primary 09/19/2017 Hypercholesterolemia 09/19/2017 Restless Leg Syndrome 09/19/2017 Pain Low Back Chronic 09/19/2017 Primary Open-Angle Glaucoma Severe Stage Bilater al 09/15/2017 Anxiety Generalized Disorder Encounters Date Type Department Care Team Description 07/06/2023 3:30 PM SUPERVISOR DYER Office Visit Department of Ophthalmology in [place], [place] [address] [place] [address] Danial Jeffries M.D., Ph.D. Primary Open-Angle Glaucoma Severe Stage Bilateral (Primary Dx) 07/06/2023 2:30 PM SUPERVISOR DYER Ancillary Procedure Department of Ophthalmology in [place], [place] [address] [place] [address] Danial Jeffries M.D., Ph.D. Primary Open-Angle Glaucoma Severe Stage Bilateral from Last 3 Months Family History Medical [...] often do you attend chur ch or presybeterian services? 1 to 4 times per year 07/09/2019 Do you belong to any clubs o r organizations such as restorationist groups, unions, fraternal or athletic groups, or [...] on one occasion? Less than monthly 07/09/2019 [facility] - Occupational Stress [...] T Respiratory Rate 15 04/20/2022 11:10 AM SUPERVISOR DYER Oxygen Saturation 96% 04/20/2022 11:10 AM SUPERVISOR DYER Inhaled Oxygen Concentration - - Weight 82.1 kg (181 lb) 01/20/2023 7:52 AM CDT Height 168.2 cm (5' 6.22) 01/20/2023 7:52 AM CD T Body Mass Index 29.02 01/20/2023 7:52 AM CDT Plan of Treatment Health Maintenance Due Date [...] Zoster Vaccines (2 of 3) 06/10/2015 04/15/2015 Depression Screening (Annual PHQ-2) 05/02/2023 Fall Risk Screen (Annual) 05/02/2023 COVID-19 Vaccine (2022-2 4 season) 2023 05/04/2023, 10/13/2021, 05/21/2021, Additional history exists Office Visit for Blood Press ure Check / Re-check 01/21/2024 01/20/2023 DTaP,Tdap,and Td Vaccines (4 - Td or Tdap) 02/03/2030 02/04/2020, 05/14/2009, 05/28/2005 Influenza Vaccine Completed 01/26/2023, , 03/25/2021, Additional history exists Pneumococcal vaccine (65+ years) Completed 05/11/19, 10/17/2020 Cervical Cancer Screening Discontinued 2023, 10/03/2019, 08/01/2018 Medical Devices Implanted Type Area Manager Business Management Device Identifier Shelf Expiration Date Model / Serial / Lot Michelle Wooten 9 - [id number] - [id number] Implanted:Qty : 1 on 04/20/2022 by Danial Jeffries M.D., Ph.D. at [facility] Bone or Tissue Left: Eye [employer] (Prev. Tissue [employer]) 08/11/2023 [id number] / [id number] / Hardware E.G. Pins/Screws/R ods-08/24/1989 Implanted: (Quantity not on file) Hardware e.g. pins/screws /rods Right: Shoulder Agustín Saldana 350 - [id number] - [id number] Implanted:Qty : 1 on 04/20/2022 by Danial Jeffries M.D., Ph.D. at [facility] Ocular (Eye) Implant Left: Eye [employer] (Previously [employer]) 10/21/2023 [id number] / [id number] / Lens Acr Sa60at Ant +18.5d - [id number] - [id number] Implanted:Qty : 1 on 07/03/2019 by Danial Jeffries M.D., Ph.D. at [facility] Ocular Lens Right: Eye [employer] 01/30/2024 SA60AT.18 5 / [id number] / Lens Acr Sa60at Ant +20.5d - [id number] - [id number] Implanted:Qty : 1 on 09/26/2019 by Danial Jeffries M.D., Ph.D. at [facility] Ocular Lens [employer] 01/30/2024 SA60AT.20 5 / [id number] / Advance Directives For more information, please contact: [phone] Documents on File Type Date Recorded Patient Power Lineman Expl anation Advance Directives 05/20/2022 8:59 AM INVA [facility] Care Teams Assisted Sales Representative Relationship Specialty Start Date End Date Elsewhere, Pcp PCP - General Internal Medicine 04/20/22
--- NOTE | 2023-09-05 10:45 | MM_ITS ---
Patient: KIMBERLY CASTRO Facility:?[facility] Patient ID:?[id number] Site Patient ID:?[id number]. Site :?[id number] Study:?XRay-Breast Bilateral 3D W/CAD-09/05/2023 11:02:48 AM Ordering Physician:Dede Final Report: BILATERAL SCREENING MAMMOGRAM WITH COMPUTER-AIDED DETECTION AND TOMOSYNTHESIS TECHNIQUE: CC and MLO views were obtained. These mammographic images have been obtained using full-field digital technique. These mammographic images were interpreted with the benefit of computer-aided detection. Breast Tomosynthesis was used in this interpretation. COMPARISON FILM: 04/24/21, 01/31/20, 01/03/19. FINDINGS: There are scattered areas of fibroglandular density IMPRESSION: There is no radiographic evidence for malignancy. ASSESSMENT: BI-RADS Category 1: Negative RECOMMENDATION: Routine screening mammogram in 1 year. A lay language report of this examination will be provided to the patient. Eric Powell M.D. Diagnostic Radiologist [email or web address] ANI/elliot R& Transcribed: 8:20 p.m. STEVE/Dictated by: Eric Powell MD @ 09/08/2023 12:39:00 PM Signed by:?Eric Powell MD @09/08/2023 8:30:16 PM (Electronic Signature)
--- OUTSIDE RECORDS SUMMARY | 2023-09-05 10:45 | XMS_ITS | Encounter Summary ---
Author Name Unknown Organization [facility] Address [address] [place] [address] Care Team Providers Care Hide And Skin Colerer Name Role Phone Elsewhere, Pcp Primary Care Provider Unavailabl e Encounter Details Date Type Department Care Team (Late st Contact Info) Description 11/10/2016 Historical Ophthalmology RST OPH Dahiana Saenz M.D. [address] [address] Social History Tobacco Use Types [...] eyes Patient has monthly IOP checks locally ([place]) return in 4 months with VF 10-2 left eye and OCT #2 High myope s/p LASIK in 2000 DIAGNOSIS #1 Primary open angle glaucoma #2 High myope CDM Reports - EYEGEN Id: [id number] Status: Fnl documented in this encounter Plan of Treatment Not on file documented as of this encounter Visit Diagnoses Not on filedocumented in this encounter Additional Health Concerns Infection Onset Date Last Indicated Resolved Time COVID19 Pending 09/23/2019 09/23/2019 09/24/2019 8 :48 AM CDT COVID19 Pending 12/07/2021 12/07/2021 12/07/2021 5 :33 PM CDT COVID19 12/07/2021 12/07/2021 12/27/2021 4:45 AM CDT documented as of this encounter Care Teams Hide And Skin Colerer Relationship Specialty Start Date End Date Elsewhere, Pcp PCP - General Internal Medicine 04/20/22 documented as of this encounter
--- OUTSIDE RECORDS SUMMARY | 2023-09-05 10:45 | XMS_ITS | Encounter Summary ---
Author Name Unknown Organization [facility] Address [address] [place] [address] Care Team Providers Care Senior Sustainability Consultant Name Role Phone Elsewhere, Pcp Primary Care Provider Unavailabl e Encounter Details Date Type Department Care Team (Late st Contact Info) Description 07/26/2017 Historical Ophthalmology RST OPH Dahiana Saenz M.D. [address] [address] Social History Tobacco Use Types [...] of 17; 23 2-3 weeks ago; in [place], [place]. IMPRESSION / REPORT / PLAN #1 [...] High myope CDM Reports - EYEGEN Id: [id number] Status: Fnl documented in this encounter Plan [...] documented as of this encounter Care Teams Senior Sustainability Consultant Relationship Specialty Start Date End Date Elsewhere, Pcp PCP - General Internal Medicine 04/20/22 documented as of this encounter
--- OUTSIDE RECORDS SUMMARY | 2023-09-05 10:45 | XMS_ITS | Encounter Summary ---
Author Name Unknown Organization [facility] Address [address] [place] [address] Care Team Providers Care Survey Crew Chief Name Role Phone Elsewhere, Pcp Primary Care Provider Unavailabl e Encounter Details Date Type Department Care Team (Late st Contact Info) Description 08/18/2016 Historical Ophthalmology RST OPH Dahiana Saenz M.D. [address] [phone] Social History Tobacco Use Types [...] High myope CDM Reports - EYEGEN Id: [id number] Status: Fnl documented in this encounter Plan [...] documented as of this encounter Care Teams Survey Crew Chief Relationship Specialty Start Date End Date Elsewhere, Pcp PCP - General Internal Medicine 04/20/22 documented as of this encounter
--- OUTSIDE RECORDS SUMMARY | 2023-09-05 10:45 | XMS_ITS | Encounter Summary ---
Author Name Unknown Organization [facility] Address [address] [place] [address] Care Team Providers Care Overseer Kosher Kitchen Name Role Phone Elsewhere, Pcp Primary Care Provider Unavailabl e Encounter Details Date Type Department Care Team (Late st Contact Info) Description 08/19/2017 Historical Ophthalmology RST OPH Dahiana Saenz M.D. [address] [phone] Social History Tobacco Use Types [...] High myope CDM Reports - EYEGEN Id: [id number] Status: Fnl documented in this encounter Plan [...] documented as of this encounter Care Teams Overseer Kosher Kitchen Relationship Specialty Start Date End Date Elsewhere, Pcp PCP - General Internal Medicine 04/20/22 documented as of this encounter
--- OUTSIDE RECORDS SUMMARY | 2023-09-05 10:45 | XMS_ITS | Encounter Summary ---
Author Name Unknown Organization [facility] Address [address] [place] [address] Care Team Providers Care News Librarian Name Role Phone Elsewhere, Pcp Primary Care Provider Unavailabl e Encounter Details Date Type Department Care Team (Late st Contact Info) Description 08/13/2015 Historical Ophthalmology RST OPH Dahiana Saenz M.D. [address] [phone] Social History Tobacco Use Types [...] glaucoma #2 High myope CDM Reports - EYEEmSense Id: [id number] Status: Fnl documented in this encounter Plan [...] documented as of this encounter Care Teams News Librarian Relationship Specialty Start Date End Date Elsewhere, Pcp PCP - General Internal Medicine 04/20/22 documented as of this encounter
--- OUTSIDE RECORDS SUMMARY | 2023-09-05 10:45 | XMS_ITS | Encounter Summary ---
Author Name Unknown Organization [facility] Address [address] [place] [address] Care Team Providers Care Lpn Care Manager Name Role Phone Elsewhere, Pcp Primary Care Provider Unavailabl e Encounter Details Date Type Department Care Team (Late st Contact Info) Description 06/14/2017 Historical Ophthalmology RST OPH Elsie Garcia O.D. [address] [place] [address] Social History Tobacco Use Types Packs/Day Years [...] High myope CDM Reports - EYEGEN Id: [id number] Status: Fnl documented in this encounter Plan [...] documented as of this encounter Care Teams Lpn Care Manager Relationship Specialty Start Date End Date Elsewhere, Pcp PCP - General Internal Medicine 04/20/22 documented as of this encounter
--- OUTSIDE RECORDS SUMMARY | 2023-09-05 10:45 | XMS_ITS | Encounter Summary ---
Author Name Unknown Organization [facility] Address [address] [place] [address] Care Team Providers Care Hvac Project Engineer Name Role Phone Elsewhere, Pcp Primary Care Provider Unavailabl e Reason for Referral * Outpatient (Routine) - Authorized Specialty Diagnoses / Procedures Referred By Pepper collins Referred To Contact Ophthalmology Danial Jeffries M.D., Ph.D. [address] [place] [address] [facility] Referral ID Status Reason Start Date Expiration Date V isits Requested Visits Authorized [id number] Authorized 07/06/2023 01/04/2025 1 1 Scheduling Instructions 30 minute appointment INE FUR CLEANER Reason for Visit * Reason Comments Follow-up * Outpatient (Routine) - Closed Specialty Diagnoses / Procedures Referred By Pepper t Referred To Contact Ophthalmology Danial Jeffries M.D., Ph.D. [address] [place] [address] [facility] Referral ID Status Reason Start Date Expiration Date Visits Re quested Visits Authorized [id number] Closed 03/14/2023 03/13/2026 1 1 Encounter Details Date Type Department Care Team (Latest Contact Info) Description 07/06/2023 3:30 PM MACHINE FUR CLEANER Office Visit Department of Ophthalmology in [place], [place] [address] [place] [phone] Danial Jeffries M.D., Ph.D. 200 [place] [address] Primary Open-Angle Glaucoma Severe Stage Bilateral (Primary [...] How often do you attend chur or church services? 1 to 4 times per year 07/09/2019 Do you belong to any clubs o r organizations such as cheondoism groups, unions, fraternal or athletic groups, or [...] on one occasion? Less than monthly 07/09/2019 [facility] - Occupational Stress [...] Notes * Danial Jeffries M.D., Ph.D. 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 Saenz) S/p traeculectomy left eye (08/24/17 - Dr. Saenz) Tmax prior to trabeculectomy s/p IN fenestrated baerveldt, left eye, 04/20/2022 IOP acceptable right, excellent left She is having some diplopia - intermittent - she she will let us know - Provide Rx IOP acceptable Continue current medications Return 4-5 mo 24-2 and 10-2 and dilation in case we need to consider YAG cap Will obtain ORA today 03/2023 However, she has a probable subjective progression of her scotoma in the left since tube placement - however on exam there is significant PCO Discussed r/b/a to YAG cap left, pt wishes to proceed Restart Cosopt both eyes Stop timolol right Return 1 month with REFR and dilation for possible YAG cap right 07/2023 S/p YAG cap left Refracts to 20/20 in both - provide Rx IOP on improved on Cosopt both eyes, now acceptable Return 6 mo team with 24-2 both, 10-2 both, OCT RNFL Glaucoma EYE DROPS RIGHT: Latanoprost QHS, Cosopt BID LEFT: Latanoprost QHS, Cosopt BID # Ptosis, left>right Likely post surgical Will request consult in near future - she would like ot wait # Pseudophakia, both eyes PCO right - discussed S/p YAG cap left # Dry eyes Recommend using Refresh Plus, or other preservative-free lubrication drops twice daily or more as needed. INE FUR CLEANER documented in this encounter Plan of Treatment Scheduled Orders Name Type Priority Associated Diagnoses Orde r Schedule Automated VF - Extended - OU - Both Eyes Ophthalmology Routine Primary Open-Angle Glaucoma Severe Stage Bilateral Expected: 01/06/2024, Expires: 10/05/2024 Automated VF - Extended - OU - Both Eyes Ophthalmology Routine Primary Open-Angle Glaucoma Severe Stage Bilateral Expected: 01/06/2024, Expires: 10/05/2024 Optical Coherence Tomography - Optic Nerve - OU - Both Eyes Ophthalmology Routine Primary Open-Angle Glaucoma Severe Stage Bilateral Expected: 01/06/2024, Expires: 10/05/2024 Scheduled Referrals Name Type Priority Associated Diagnoses Order Schedule Ophthalmology office visit (clinic) Outpatient Referral Routine Expected: 01/06/2024, Expires: 10/05/2024 documented as of this encounter Visit Diagnoses Diagnosis Primary Open-Angle Glaucoma Severe Stage Bilateral- Primary documented in this encounter Care Teams Hvac Project Engineer Relationship Specialty Start Date End Date Elsewhere, Pcp PCP - General Internal Medicine 04/20/22 documented as of this encounter
--- OUTSIDE RECORDS SUMMARY | 2023-09-05 10:45 | XMS_ITS | Encounter Summary ---
Author Name Unknown Organization [facility] Address [address] [place] [address] Care Team Providers Care Glassware Maker Name Role Phone Elsewhere, Pcp Primary Care Provider Unavailabl e Encounter Details Date Type Department Care Team (Late st Contact Info) Description 03/31/2016 Historical Ophthalmology RST OPH Dahiana Saenz M.D. [address] [phone] Social History Tobacco Use Types [...] glaucoma #2 High myope [facility] Id: [id number] Status: Fnl documented in this encounter Plan [...] documented as of this encounter Care Teams Glassware Maker Relationship Specialty Start Date End Date Elsewhere, Pcp PCP - General Internal Medicine 04/20/22 documented as of this encounter
--- OUTSIDE RECORDS SUMMARY | 2023-09-05 10:45 | XMS_ITS | Encounter Summary ---
Author Name Unknown Organization [facility] Address [address] [place] [address] Care Team Providers Care Pad Machine Feeder Name Role Phone Elsewhere, Pcp Primary Care Provider Unavailabl e Encounter Details Date Type Department Care Team (Late st Contact Info) Description 09/01/2017 Historical Ophthalmology RST OPH Danial Jeffries M.D., Ph.D. [address] [place] [phone] Social History Tobacco Use Types Packs/Day Years Used Date Smoking Tobacco: Former Sex and Gender Information Value Date Recorded Sex Assigned at Female 09/29/2017 12:58 PM CDT Gender Identity Female 09/29/2017 12:58 PM CDT Sexual Orientation Lesbian or Griffiths 09/29/2017 12 :58 PM CDT documented as of this encounter Progress Notes * Danial Jeffreis M.D., Ph.D. - 09/01/2017 12:59 PM CDT Eye Postoperative MULTI-VISIT DOCUMENT This document contains multiple patient visits and is available for review in Document Viewer. CDM Reports - EYEPO Id: [id number] Status: Fnl documented in this encounter Plan [...] documented as of this encounter Care Teams Pad Machine Feeder Relationship Specialty Start Date End Date Elsewhere, Pcp PCP - General Internal Medicine 04/20/22 documented as of this encounter
--- OUTSIDE RECORDS SUMMARY | 2023-09-05 10:45 | XMS_ITS | Encounter Summary ---
Author Name Unknown Organization [facility] Address [address] [place] [address] Care Team Providers Care Director Diabetes Name Role Phone Elsewhere, Pcp Primary Care Provider Unavailabl e Encounter Details Date Type Department Care Team (Late st Contact Info) Description 08/29/2015 Historical Ophthalmology RST OPH Dahiana Saenz M.D. [address] [phone] Social History Tobacco Use Types [...] glaucoma #2 High myope [facility] Id: [id number] Status: Fnl documented in this encounter Plan [...] documented as of this encounter Care Teams Director Diabetes Relationship Specialty Start Date End Date Elsewhere, Pcp PCP - General Internal Medicine 04/20/22 documented as of this encounter
--- OUTSIDE RECORDS SUMMARY | 2023-09-05 10:45 | XMS_ITS | Encounter Summary ---
Author Name Unknown Organization [facility] Address [address] [place] [address] Care Team Providers Care Title 1 Tutor Name Role Phone Elsewhere, Pcp Primary Care Provider Unavailabl e Encounter Details Date Type Department Care Team (Late st Contact Info) Description 11/20/2015 Historical Ophthalmology RST OPH Dahiana Saenz M.D. [address] [phone] Social History Tobacco Use Types [...] High myope CDM Reports - EYEGEN Id: [id number] Status: Fnl documented in this encounter Plan [...] documented as of this encounter Care Teams Title 1 Tutor Relationship Specialty Start Date End Date Elsewhere, Pcp PCP - General Internal Medicine 04/20/22 documented as of this encounter
--- OUTSIDE RECORDS SUMMARY | 2023-09-05 10:45 | XMS_ITS | Encounter Summary ---
Author Name Unknown Organization [facility] Address [address] [place] [address] Care Team Providers Care Shoeblack Name Role Phone Elsewhere, Pcp Primary Care Provider Unavailabl e Reason for Visit * Outpatient (Routine) - Closed Specialty Diagnoses / Procedures Referred By Contvincenzo t Referred To Contact Diagnoses Primary Open-Angle Glaucoma Severe Stage Bilateral Procedures Refraction Danial Jeffries M.D., Ph.D. [address] [place] [phone] [facility] Referral ID Status Reason Start Date Expiration Date Visits Re quested Visits Authorized [id number] Closed 03/16/2023 03/15/2024 1 1 Encounter Details Date Type Department Care Team (Latest Contact Info) Description 07/06/2023 2:30 PM SAFETY AND SKILL BASED PAY MANAGER Ancillary Procedure Department of Ophthalmology in [place], [place] [address] [place] [phone] Danial Jeffries M.D., Ph.D. [address] [place] [phone] Primary Open-Angle Glaucoma Severe Stage Bilateral Social [...] often do you attend chur ch or advent services? 1 to 4 times per year [...] on one occasion? Less than monthly 07/09/2019 [facility] - Occupational Stress [...] as of this encounter Plan of Treatment Not on file documented as of this encounter Visit Diagnoses Diagnosis Primary Open-Angle Glaucoma Severe Stage Bilateral documented in this encounter Care Teams Shoeblack Relationship Specialty Start Date End Date Elsewhere, Pcp PCP - General Internal Medicine 04/20/22 documented as of this encounter
--- OUTSIDE RECORDS SUMMARY | 2023-09-05 10:45 | XMS_ITS | Clinical Summary ---
Author Name Unknown Organization [facility] Address [place], [place] [address] Care Team Providers Care System Auditor Name Role Phone Pcp, No Primary Care Provider Unavailabl e Allergies No known active allergies Medications Medication Sig Dispensed Refills Start Date End Date Status Tduk-Zocs-BKD#1-C-Grady- Refugio-Bor (OSTEO BI-FLEX) 750-625-30 mg Tab Take [...] DAY NEEDED FOR COLD SORES 25 tablet 11/25/2016 Active brimonidine (ALPHAGAN) 0.2 % ophthalmic [...] before meals and at bedtime. 1 Tube 02/02/2017 Active clonazePAM (KLONOPIN) 1 mg tabletIndications:Restl ess legs syndrome (RLS) Take 1 tablet by mouth at bedtime. 30 tablet 04/19/2017 Active rosuvastatin (CRESTOR) 10 mg tabletIndications:Hyper lipidemia LDL goal <130 TAKE 1 TABLET BY MOUTH AT BEDTIME 30 tablet 10/13/2017 Active lisinopril-hydrochlorot hiazide, 20-25 mg, (PRINZIDE, ZESTORETIC) 20-25 mg per tabletIndications:Hyper tension TAKE 1 TABLET BY MOUTH EVERY DAY 90 tablet 10/25/2017 Active azithromycin (Zithromax Z-Chano) 250 mg tabletIndications:Atypi terrie pneumonia Take 500 mg (2 tabs) by mouth on day 1, then 250 mg (1 tab) daily for days 2-5. 6 Tablet 02/01/2022 Active benzonatate (Tessalon Perles) 100 mg capsuleIndications:Atyp ical pneumonia Take 1 Capsule (100 mg) by mouth 3 times daily if needed for Cough. 30 Capsule 02/01/2022 Active Active Problems Problem Noted Date [...] Body Mass Index 28.8 03/18/2017 8:13 AM CHEMICAL LABORATORY TECHNICIAN Plan of Treatment Health Maintenance Due Date [...] Additional history exists Influenza for age 65+ 01/01/2024 01/19/2017 , 01/27/2016, 04/15/2015, Additional history exists Colonoscopy through age 75 10/08/202410/08, 10/08/2014, 10/30/2004 (Completed outside of [facility]) Tdap Completed 05/28/2005 Hepatitis C screening for ag e 18-79 Completed 08/27/2011 Procedures Procedure Name Priority Date/Time Associated Diagnosis Comments XR MAMMO BILAT SCREENING Routine 09/17/2016 8:57 AM CDT Visit for screening mammogram LIPID PANEL W REFLEX MEASURED LDL Routine 09/09/2016 8:15 AM CDT Hyperlipidemia LDL goal <130 XR DXA BONE DENSITY 2 SITES AXIAL Routine 10/30/2013 9:15 AM CDT Osteoporosis screening ANTI HCV Routine 08/27/2011 8:52 AM CDT Myalgia and myositis, unspecified from Last 3 Months or Most Recently Relevant to Health Maintenance Results * XR MAMMO BILAT SCREENING (09/17/2016 8:57 AM CDT) Anatomical Region Laterality Modality BREASTS, Breast Left, Breast Right Bilateral Mammography Impressions 09/17/2016 12:16 PM CDT ??There is no radiographic evidence for malignancy. ??Recommend annual mammograms. A lay language report of this examination will be provided to the patient. MAMMOGRAM ASSESSMENT: ??ACR 2 Benign Narrative 09/17/2016 12:16 PM CDT XR MAMMO BILAT SCREENING [[id number]] CLINICAL HISTORY: ??This is an asymptomatic 60 y.o. patient. INDICATION FOR EXAM: Mammogram Screening. TECHNIQUE: CC & MLO views were obtained. ??This digital study was evaluated with the assistance of Computer-Aided Detection. COMPARISON FILMS: Yes 07/25/14 [facility] 07/18/13 [facility] FINDINGS: ??Mammographically, the breast tissue has scattered fibroglandular densities. ??No suspicious masses or microcalcifications. ?? Benign appearing calcifications within right breast and Benign appearing asymmetry within right breast. Darlin Stanley MD MAMMO * LIPID PANEL W REFLEX MEASURED LDL (09/09/2016 8:15 AM CDT) CHOLESTEROL,TOTAL 167 100 - 199 mg/dL 09/09/2016 1:33 PM CDT [facility] TRIGLYCERIDES 92 <150 mg/dL 09/09/2016 1:33 PM CDT [facility] HDL CHOLESTEROL 47 >40 mg/dL 7 1:33 PM CDT [facility] NON-HDL CHOLESTEROL 120 <145 mg/dl 09/09/2016 1:33 PM CDT [facility] CHOL/HDL RATIO 3.55 <4.50 09/09/2016 1:33 PM CDT [facility] LDL CHOLESTEROL 102 <=130 mg/dL 09/09/2016 1:33 PM CDT [facility] PATIENT STATUS FASTING 09/09/2016 1:33 PM CDT [facility] Blood BLOOD SPECIMEN / Unknown Venipuncture / Unknown 09/09/2016 8:15 AM CDT 09/09/2016 8:15 AM CDT Darlin Stanley MD CHEMISTRY [facility] [address] [place] [address], [facility] [address] [place] [address], * XR DXA BONE DENSITY 2 SITES (10/30/2013 9:15 AM CDT) Anatomical Region Laterality Modality Spine, HIPS, HIPL, HIPR Bone Den sitometry Narrative 11/05/2013 1:03 PM CDT Please see scanned document for results of this study. Procedure Note Katlyn Lopez MD - 11/05/2013 Please see scanned document for results of this study. Kannan Abdi DO DEXA * ANTI HCV (08/27/2011 8:52 AM CDT) ANTI HCV Non-reacti ve [facility] Blood specimen (specimen) BLOOD SPECIMEN / Unknown 08/27/2011 8:52 AM CDT 08/27/2011 8:43 AM CDT Eric Mae MD SEND OUTS [facility] [place]NAL ZIP [address] [place] [address] from Last 3 Months or Most Recently Relevant to Health Maintenance Advance Directives Documents on File Type Date Recorded Patient Glassware Maker Expl anation Healthcare Directive 04/29/2011 12:00 AM ADVANCE DIRECTIVE Healthcare Directive 04/10/2007 HEALTH CARE DIRECTIVE, [facility], 04/10/2007 Healthcare Directive 03/20/2007 12:00 AM ADVANCED DIRECTIVE Healthcare Directive 02/22/2007 12:00 AM ADVANCE DIRECTIVE Care Teams System Auditor Relationship Specialty Start Date End Date Pcp, No . PCP - General 06/15/17
--- OUTSIDE RECORDS SUMMARY | 2023-09-05 10:45 | XMS_ITS ---
Author Name Unknown Organization [facility] Address [address] [place] [address] Care Team Providers Care Nurse Practitioner Manager Name Role Phone Unavailable Unavailable Unavailable Surgery Details Not on file Complications Check Surgery Details section. Procedure Estimated Blood Loss Check Surgery Details section. Procedure Findings Check Surgery Details section. Procedure Specimens Taken Check Surgery Details section.
== END 2023-09-05 10:43 | disposition home or self-care (01) ==
LOC: MAMMO 10:43
PROVIDERS: PCP Family Medicine; Visit Provider Family Medicine
DX: Z12.31 Encounter for screening mammogram for malignant neoplasm of breast (principal)
CPT/HCPCS: 77063; 77067

== ENCOUNTER 2024-01-20 14:26 | Outpatient (CLI) | payer MEDICARE, SELFPAY ==
--- OUTSIDE RECORDS SUMMARY | 2024-01-20 14:28 | XMS_ITS | Encounter Summary ---
Author Organization [facility] Address [address] [place] [address] Care Team Providers Care Routing Machine Operator Name Role Phone Elsewhere, Pcp Primary Care Provider Unavailabl e Encounter Details Date Type Department Care Team (Latest Contact Info) Description 01/04/2024 8:30 AM CDT Ancillary Procedure Department of Ophthalmology in [place], [place] [address] [place] [address] Danial Jeffries M.D., Ph.D. [address] [place] [phone] Primary Open-Angle Glaucoma Severe Stage Bilateral Social [...] on one occasion? Less than monthly 07/09/2019 [facility] - Occupational Stress Questionnaire Answer Date Recorded [...] on file documented as of this encounter Procedures Procedure Name Priority Date/Time Associated Diagnosis Comments AUTOMATED VF - EXTENDED - OU - BOTH EYES Routine 01/04/2024 7:03 AM CDT Primary Open-Angle Glaucoma Severe Stage Bilateral documented in this encounter Results * Automated VF - Extended - OU - Both Eyes (01/04/2024 7:03 AM CDT) Narrative OPHTHALMOLOGY IMAGING EXAM - 01/04/2024 8:14 AM CDT Right Eye Automated visual field device used was Zeiss. Strategy was RADHA. Threshold was 10-2. Eyelid was untaped. Left Eye Automated visual field device used was Zeiss. Strategy was RADHA. Threshold was 10-2. Eyelid was untaped. Notes Right eye - Good Reliability. Early inferior arcuate, stable Left eye - Good Reliability. Large/deep superior arcuate, stable interval. Danial Jeffries M.D., Ph.D. OPHTH VISUAL F IELD OPHTHALMOLOGY IMAGING EXAM documented in this encounter Visit Diagnoses Diagnosis Primary Open-Angle Glaucoma Severe Stage Bilateral documented in this encounter Care Teams Routing Machine Operator Relationship Specialty Start Date End Date Elsewhere, Pcp PCP - General Internal Medicine 04/20/22 documented as of this encounter
--- OUTSIDE RECORDS SUMMARY | 2024-01-20 14:28 | XMS_ITS | Clinical Summary ---
Author Organization [facility] Address [address] [place] [address] Care Team Providers Care Biller Name Role Phone Elsewhere, Pcp Primary Care Provider Unavailabl e Source Comments Patient records contain information from all sites at [facility]. For routine questions regarding patient records, call [phone] during business hours, M-F 8:00 AM - 5:00 PM Central Time. Record requests for emergency care only can be directed to [phone] at any time.[facility] Allergies No known active allergies Medications Medication Sig Dispensed Refills Start Date End Date Status lisinopril-hydroCHLO ROthiazide (PRINZIDE,ZESTORETIC ) 20-25 mg per tablet Take 1 tablet by mouth daily. 09/17/2016 Active LORazepam (ATIVAN) 1 mg tablet Take 1 tablet by mouth daily. 08/13/2015 Active pramipexole (MIRAPEX) 0.5 mg tablet Take 2 tablets by mouth daily. 08/13/2015 Active peg 400-propylene glycol, PF, (SYSTANE) 0.4-0.3 % ophthalmic solution Administer 1 drop into both eyes as needed. 11/20/2015 Active cholecalciferol (VITAMIN D3) 50 mcg (2,000 Unit) capsule Take by mouth daily. 11/24/2021 Active gabapentin (NEURONTIN) 600 mg tablet Take 600 mg by mouth 3 (three) times a day. 11/10/2021 Active clonazePAM (KlonoPIN) 1 mg tablet Take 1 mg by mouth at bedtime as needed. 10/06/2021 Active rosuvastatin (CRESTOR) 10 mg tablet Take 10 mg by mouth daily. 12/07/2021 Active HYDROcodone-acetamin ophen (NORCO) 5-325 mg per tablet 01/07/2022 Active ondansetron ODT (ZOFRAN-ODT) 4 mg disintegrating tablet 4 mg every 8 (eight) hours. 02/26/2022 Active oxyCODONE (ROXICODONE) 5 mg immediate release tablet Take 5 mg by mouth every 4 (four) hours as needed. for pain 02/26/2022 Active glucosamine/chondr walker A sod (glucosamine-chondro itin) 1,500-1,200 mg/30 mL liquid 2 tablets. 01/15/2022 Active latanoprost (Xalatan) 0.005 % ophthalmic solution Administer 1 drop into both eyes at bedtime. 10 mL 3 01/04/2024 Active dorzolamide-timoloL (Cosopt) 22.3-6.8 mg/mL ophthalmic solution Administer 1 drop into both eyes 2 (two) times a day. 20 mL 11 01/04/2024 Active prednisoLONE acetate (PRED FORTE) 1 % ophthalmic suspension Administer 1 drop into the left eye 4 (four) times a day. Starting 3 days prior to surgery 5 mL 2 11/13/2021 4 Discontinue d(Therapy completed) prednisoLONE acetate (PRED FORTE) 1 % ophthalmic suspension Administer 1 drop into the left eye 4 (four) times a day. Start 3 days before surgery 10 mL 6 01/29/2022 4 Discontinue d(Therapy completed) prednisoLONE acetate (PRED FORTE) 1 % ophthalmic suspension Administer 1 drop into the left eye 4 (four) times a day. 15 mL 3 04/21/2022 4 Discontinue d(Therapy completed) timolol (TIMOPTIC) 0.5 % ophthalmic solution INSTILL 1 DROP IN BOTH EYES EVERY MORNING 10 mL 3 05/04/2022 4 Discontinue d(Therapy completed) moxifloxacin (VIGAMOX) 0.5 % ophthalmic solution Administer 1 drop into the left eye 4 (four) times a day. 1 drop four times a day to the operative eye starting the day before surgery 3 mL 1 05/17/2022 4 Discontinue d(Therapy completed) latanoprost (XALATAN) 0.005 % ophthalmic solution INSTILL 1 DROP IN BOTH EYES AT BEDTIME 10 mL 11 12/28/2022 4 Discontinue d(Reorder) dorzolamide-timoloL (COSOPT) 22.3-6.8 mg/mL ophthalmic solution instill 1 drop in both eyes twice daily 20 mL 11 09/16/2023 4 Discontinue d(Reorder) Active Problems Problem Noted Date Diagnosed Date Hypertension Essential Primary 09/19/2017 Hypercholesterolemia 09/19/2017 Restless Leg Syndrome 09/19/2017 Pain Low Back Chronic 09/19/2017 Primary Open-Angle Glaucoma Severe Stage Bilater al 09/15/2017 Anxiety Generalized Disorder Resolved Problems Problem Noted Date Diagnosed Date Resolved Date Age Related Nuclear Cataract Right Eye 05/28/2019 01/04/2024 Overview (05/28/2019): Added automatically from request for surgery [id number] Age Related Nuclear Cataract Left Eye 05/28/2019 01/04/2024 Overview (09/25/2019): Added automatically from request for surgery [id number] Encounters Date Type Department Care Team Description 01/04/2024 9:30 AM CDT Office Visit Department of Ophthalmology in [address] [address] Maria Del Carmen Resendez O.D. Primary Open-Angle Glaucoma Severe Stage Bilateral (Primary Dx); Presence Of Intraocular Lens; Opacity Lens Posterior Capsule; Dry Eye Syndrome Bilateral; Ptosis Eyelid Left 01/04/2024 9:00 AM CDT Ancillary Procedure Department of Ophthalmology in [address] [address] Danial Jeffries M.D., Ph.D. Primary Open-Angle Glaucoma Severe Stage Bilateral 01/04/2024 8:45 AM CDT Ancillary Procedure Department of Ophthalmology 01/04/2024 8:30 AM CDT Ancillary Procedure Department of Ophthalmology in [place], [place] [address] [place] [phone] Danial Jeffries M.D., Ph.D. Primary Open-Angle Glaucoma Severe Stage Bilateral 01/04/2024 7:30 AM CDT Ancillary Procedure Department of Ophthalmology in [place], [place] [address] [place] [address] Danial Jeffries M.D., Ph.D. Primary Open-Angle Glaucoma Severe Stage Bilateral 01/04/2024 5:20 AM CDT Ancillary Procedure Department of Ophthalmology 01/04/2024 5:05 AM CDT Ancillary Procedure Department of Ophthalmology from Last 3 Months Family History Medical [...] often do you attend chur ch or latter-day services? 1 to 4 times per year 07/09/2019 Do you belong to any clubs o r organizations such as hinduism groups, unions, fraternal or athletic groups, or [...] on one occasion? Less than monthly 07/09/2019 [facility] [place] of Occupat ional Health - Occupational Stress [...] T Respiratory Rate 15 04/20/2022 11:10 AM ESCALATOR ATTENDANT Oxygen Saturation 96% 04/20/2022 11:10 AM ESCALATOR ATTENDANT Inhaled Oxygen Concentration - - Weight 82.1 [...] (Annual) 05/02/2023 COVID-19 Vaccine (2022-2 4 season) 2024 05/04/2023, 10/13/2021, 05/21/2021, Additional history exists Office Visit for Blood Press ure Check / Re-check 01/21/2024 01/20/2023 Influenza Vaccine (#1) 2024 3, 02/24/2022, 03/25/2021, Additional history exists DTaP,Tdap,and Td Vaccines (4 - Td or Tdap) 02/03/2030 02/04/2020, 05/14/2009, 05/28/2005 Pneumococcal vaccine (65+ years) Completed 05/11/19, 10/17/2020 Cervical Cancer Screening Discontinued 2023, 10/03/2019, 08/01/2018 Medical Devices Implanted Type Area Paper Cone Machine Tender Device Identifier Shelf Expiration Date Model / Serial / Lot Grft Crn 9 - [id number] - [id number] Implanted:Qty : 1 on 04/20/2022 by Danial Jeffries M.D., Ph.D. at [facility]/[place] Bone or Tissue Left: Eye [employer] (Prev. Tissue [employer]) 08/11/2023 [id number] / [id number] / Hardware E.G. Pins/Screws/R ods-08/24/1989 Implanted: (Quantity not on file) Hardware e.g. pins/screws /rods Right: Shoulder Agustín Saldana 350 - [id number] - [id number] Implanted:Qty : 1 on 04/20/2022 by Danial Jeffries M.D., Ph.D. at [facility] Ocular (Eye) Implant Left: Eye [employer] (Previously [employer]ARI) 10/21/2023 [id number] / [id number] / Lens Acr Sa60at Ant +18.5d - [id number] - [id number] Implanted:Qty : 1 on 07/03/2019 by Danial Jeffries M.D., Ph.D. at [facility] Ocular Lens Right: Eye [employer] 01/30/2024 SA60AT.18 5 / [id number] / Lens Acr Sa60at Ant +20.5d - [id number] - [id number] Implanted:Qty : 1 on 09/26/2019 by Danial Jeffries M.D., Ph.D. at [facility] Ocular Lens [employer] 01/30/2024 SA60AT.20 5 / [id number] / Procedures Procedure Name Priority Date/Time Associated Diagnosis Comments OPTICAL COHERENCE TOMOGRAPHY (OCT) - OPTIC NERVE - OU - BOTH EYES Routine 01/04/2024 8:49 AM CDT Primary Open-Angle Glaucoma Severe Stage Bilateral OPHTHALMOLOGY IMAGE EXAM Routine 01/04/2024 8:45 AM CDT AUTOMATED VF - EXTENDED - OU - BOTH EYES Routine 01/04/2024 7:20 AM CDT Primary Open-Angle Glaucoma Severe Stage Bilateral AUTOMATED VF - EXTENDED - OU - BOTH EYES Routine 01/04/2024 7:03 AM CDT Primary Open-Angle Glaucoma Severe Stage Bilateral OPHTHALMOLOGY IMAGE EXAM Routine 01/04/2024 5:20 AM CDT OPHTHALMOLOGY IMAGE EXAM Routine 01/04/2024 5:05 AM CDT from Last 3 Months Results * Optical Coherence Tomography - Optic Nerve - OU - Both Eyes (01/04/2024 8:49 AM CDT) Narrative OPHTHALMOLOGY IMAGING EXAM - 01/04/2024 8:57 AM CDT OCT device used was Cirrus . Notes DH Right eye - good quality. Stable superior thinning, increased inftemp thinning Left eye - good quality. Stable inferior thinning, increased suptemp thinning Danial Jeffries M.D., Ph.D. OPHTH TOMOGRAP HY Performing Organization Address [facility] Co de Phone Number OPHTHALMOLOGY IMAGING EXAM * Optical Coherence Tomography (OCT)-Ophthalmology Image Exam (01/04/2024 8:45 AM CDT) Only the most recent of3 resultswithin the time period is included. 01/04/2024 8:43 AM CDT Narrative IIMS - 01/04/2024 8:59 AM CDT This order has been created and auto-finalized to support the import of images acquired without order. The clinical documentation to support these images can be found on the encounter that produced images. Provider Not In System IMG NON RAD IMAGI NG PROCEDURES Performing Organization Address [facility] Co de Phone Number IIMS NA * Automated VF - Extended - OU - Both Eyes (01/04/2024 7:20 AM CDT) Narrative OPHTHALMOLOGY IMAGING EXAM - 01/04/2024 8:15 AM CDT Right Eye Automated visual field device used was Zeiss. Strategy was RADHA. Threshold was 24-2. Eyelid was untaped. Left Eye Automated visual field device used was Zeiss. Strategy was RADHA. Threshold was 24-2. Eyelid was untaped. Notes Right eye - Good Reliability. Larger inferior arcuate and possible early superior arcuate changes, repeat to confirm. Left eye - Good Reliability. Superior arcuate w paracentral involvement, stable. Danial Jeffries M.D., Ph.D. OPHTH VISUAL F IELD Performing Organization Address [facility] Co de Phone Number OPHTHALMOLOGY IMAGING EXAM [...] OPHTH VISUAL F IELD Performing Organization Address [facility] Co de Phone Number OPHTHALMOLOGY IMAGING EXAM from Last 3 Months Advance Directives For more information, please contact: [phone] Documents on File Type Date Recorded Patient Electrician Substation Supervisor Expl anation Advance Directives 05/20/2022 8:59 AM INVA LID Care Teams Biller Relationship Specialty Start Date End Date Elsewhere, Pcp PCP - General Internal Medicine 04/20/22
--- OUTSIDE RECORDS SUMMARY | 2024-01-20 14:28 | XMS_ITS | Encounter Summary ---
Author Organization [facility] Address [address] [place] [address] Care Team Providers Care Heat And Frost Insulator Helper Name Role Phone Elsewhere, Pcp Primary Care Provider Unavailabl e Encounter Details Date Type Department Care Team (Late st Contact Info) Description 01/04/2024 5:20 AM CDT Ancillary Procedure Department [...] often do you attend chur ch or jain services? 1 to 4 times per year 07/09/2019 Do you belong to any clubs o r organizations such as catholic groups, unions, fraternal or athletic groups, or [...] Less than monthly 07/09/2019 [facility] - Occupational Stress Questionnaire Answer Date [...] Associated Diagnosis Comments OPHTHALMOLOGY IMAGE EXAM Routine 01/04/2024 5:20 AM CDT documented in this encounter Results * Visual Ariza (VF)-Ophthalmology Image Exam (01/04/2024 5:20 AM CDT) 01/04/2024 5:20 AM CDT Narrative IIMS - 01/04/2024 7:42 AM CDT This order has been created and auto-finalized to support the import of images acquired without order. The clinical documentation to support these images can be found on the encounter that produced images. Provider Not In System IMG NON RAD IMAGI NG PROCEDURES IIMS NA documented in this encounter Visit Diagnoses Not on filedocumented in this encounter Care Teams Heat And Frost Insulator Helper Relationship Specialty Start Date End Date Elsewhere, Pcp PCP - General Internal Medicine 04/20/22 documented as of this encounter
--- OUTSIDE RECORDS SUMMARY | 2024-01-20 14:28 | XMS_ITS | Encounter Summary ---
Author Organization [facility] Address [address] [place] [id number] Care Team Providers Care Lawyer Real Estate Name Role Phone Elsewhere, Pcp Primary Care Provider Unavailabl e Reason for Referral * Outpatient (Routine) - Authorized Specialty Diagnoses / Procedures Referred By Pepper collins Referred To Contact Ophthalmology Maria Del Carmen Resendez O.D. [address] [place] [phone] Danial Jeffries M.D., Ph.D. [address] [place] [phone] Referral ID Status Reason Start Date Expiration Date V isits Requested Visits Authorized [id number] Authorized 01/04/2024 07/05/2025 1 1 Scheduling Instructions [facility] with glc testing Reason for Visit * Reason Comments Glaucoma * Outpatient (Routine) - Closed Specialty Diagnoses / Procedures Referred By Contvincenzo t Referred To Contact Ophthalmology Danial Jeffries M.D., Ph.D. [address] [place] [phone] [facility] Referral ID Status Reason Start Date Expiration Date Visits Re quested Visits Authorized [id number] Closed 07/06/2023 01/04/2025 1 1 Encounter Details Date Type Department Care Team (Latest Contact Info) Description 01/04/2024 9:30 AM CDT Office Visit Department of Ophthalmology in [place], [place] [address] [place] [address] Maria Del Carmen Resendez O.D. [address] [place] [phone] Primary Open-Angle Glaucoma Severe Stage Bilateral (Primary Dx); Presence Of Intraocular Lens; Opacity Lens Posterior Capsule; Dry Eye Syndrome Bilateral; Ptosis Eyelid Left Social History Tobacco Use Types Packs/Day Years [...] week 07/09/2019 How often do you attend [facility] or mandaen services? 1 to 4 times per year 07/09/2019 Do you belong to any clubs o r organizations such as restoration groups, unions, fraternal or athletic groups, or [...] on one occasion? Less than monthly 07/09/2019 [facility] of Occupat ional Health - Occupational Stress [...] as of this encounter Progress Notes * Maria Del Carmen Resendez O.D. 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 Saenz) S/p traeculectomy left eye (08/24/17 - Dr. Saenz) Tmax prior to trabeculectomy 15/ S/p Trab left eye (12/30/21) s/p IN fenestrated baerveldt, left eye, 04/20/2022 Current Drops: Cosopt BID both eyes, Latanoprost at bedtime both eyes Today (01/04/2024) IOP 11/09 New baseline testing s/p BGI left eye HVF and OCT worse right eye Plan: Discussed exam findings and test results. Continue present management. Follow up 4 mo with [facility] for HVF 24-2, dilation w tech, and OCT. 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 # Pseudophakia, both eyes PCO right - discussed S/p YAG cap left Centered/stable. # Dry eyes Continue artificial tears documented in this encounter Plan of Treatment Scheduled Orders Name Type Priority Associated Diagnoses Orde r Schedule Automated VF - Extended - OU - Both Eyes Ophthalmology Routine Primary Open-Angle Glaucoma Severe Stage Bilateral Expected: 04/04/2024 (Approximate), Expires: 01/03/2026 Optical Coherence Tomography - Optic Nerve - OU - Both Eyes Ophthalmology Routine Primary Open-Angle Glaucoma Severe Stage Bilateral Expected: 04/04/2024 (Approximate), Expires: 04/04/2025 Scheduled Referrals Name Type Priority Associated Diagnoses Order Schedule Ophthalmology office visit (clinic) Outpatient Referral Routine Expected: 04/04/2024 (Approximate), Expires: 01/03/2026 documented as of this encounter Visit Diagnoses Diagnosis Primary Open-Angle Glaucoma Severe Stage Bilateral- Primary Presence Of Intraocular Lens Opacity Lens Posterior Capsule Dry Eye Syndrome Bilateral Ptosis Eyelid Left documented in this encounter Care Teams Lawyer Real Estate Relationship Specialty Start Date End Date Elsewhere, Pcp PCP - General Internal Medicine 04/20/22 documented as of this encounter
--- OUTSIDE RECORDS SUMMARY | 2024-01-20 14:28 | XMS_ITS | Referral Summary ---
Author Organization [facility] Address [address] [place] [address] Care Team Providers Care Senior Housekeeper Name Role Phone Elsewhere, Pcp Primary Care Provider Unavailabl e Source Comments Patient records contain information from all sites at [facility]. For routine questions regarding patient records, call [phone] during business hours, M-F 8:00 AM - 5:00 PM Central Time. Record requests for emergency care only can be directed to [phone] at any time.[facility] Encounters Date Type Department Care Team Description 01/04/2024 8:45 AM CDT Ancillary Procedure Department of Ophthalmology 01/04/2024 5:20 AM CDT Ancillary Procedure Department of Ophthalmology 01/04/2024 5:05 AM CDT Ancillary Procedure Department of Ophthalmology 01/04/2024 9:30 AM CDT Office Visit Department of Ophthalmology in [place], [place] [address] [place] [address] Maria Del Carmen Resendez O.D. Primary Open-Angle Glaucoma Severe Stage Bilateral (Primary Dx); Presence Of Intraocular Lens; Opacity Lens Posterior Capsule; Dry Eye Syndrome Bilateral; Ptosis Eyelid Left 01/04/2024 9:00 AM CDT Ancillary Procedure Department of Ophthalmology in [place], [place] [address] [place] [phone] Danial Jeffries M.D., Ph.D. Primary Open-Angle Glaucoma Severe Stage Bilateral 01/04/2024 8:30 AM CDT Ancillary Procedure Department of Ophthalmology in [place], [place] [address] [place] [address] Danial Jeffries M.D., Ph.D. Primary Open-Angle Glaucoma Severe Stage Bilateral 01/04/2024 7:30 AM CDT Ancillary Procedure Department of Ophthalmology in [place] [address] [place] [address] Danial Jeffries M.D., Ph.D. Primary Open-Angle Glaucoma Severe Stage Bilateral from Last 3 Months Allergies No known [...] (05/28/2019): Added automatically from request for surgery [id number] Age Related Nuclear Cataract Left Eye 05/28/2019 01/04/2024 Overview (09/25/2019): Added automatically from request for surgery [id number] Social History Tobacco Use Types Packs/Day Years [...] often do you attend chur ch or mormon services? 1 to 4 times per year 07/09/2019 Do you belong to any clubs o r organizations such as restoration groups, unions, [employer] or athletic groups, or school groups? No [...] one occasion? Less than monthly 07/09/2019 [facility] [place] of Occupat ional Health - Occupational Stress [...] T Respiratory Rate 15 04/20/2022 11:10 AM CARE TRANSITION MGR Oxygen Saturation 96% 04/20/2022 11:10 AM CARE TRANSITION MGR Inhaled Oxygen Concentration - - Weight 82.1 kg (181 lb) 01/20/2023 7:52 AM CDT Height 168.2 cm (5' 6.22) 01/20/2023 7:52 AM CD T Body Mass Index 29.02 01/20/2023 7:52 AM CDT Plan of Treatment Not on file Medical Devices Implanted Type Area Plastics Factory Worker Device Identifier Shelf Expiration Date Model / Serial / Lot Michelle Wooten 9 - [id number] - [id number] Implanted:Qty : 1 on 04/20/2022 by Danial Jeffries M.D., Ph.D. at [facility] Bone or Tissue Left: Eye [employer] (Prev. Tissue [employer]) 08/11/2023 [id number] / [id number] / Hardware E.G. Pins/Screws/R ods-08/24/1989 Implanted: (Quantity not on file) Hardware e.g. pins/screws /rods Right: Shoulder Agustín Saldana 350 - [id number] - [id number] Implanted:Qty : 1 on 04/20/2022 by Danial Jeffries M.D., Ph.D. at [facility] Ocular (Eye) Implant Left: Eye [employer] (Previously [employer]) 10/21/2023 [id number] / [id number] / Lens Acr Sa60at Ant +18.5d - [id number] - [id number] Implanted:Qty : 1 on 07/03/2019 by Danial Jeffries M.D., Ph.D. at [facility] Ocular Lens Right: Eye [employer] 01/30/2024 SA60AT.18 5 / [id number] / Lens Acr Sa60at Ant +20.5d - [id number] - [id number] Implanted:Qty : 1 on 09/26/2019 by Danial Jeffries M.D., Ph.D. at [facility] Ocular Lens [employer] 01/30/2024 SA60AT.20 5 / [id number] / Procedures Procedure Name Priority Date/Time [...] Ph.D. OPHTH TOMOGRAP HY Performing Organization Address [facility] Co de Phone Number OPHTHALMOLOGY IMAGING EXAM [...] RAD IMAGI NG PROCEDURES Performing Organization Address [facility] Co de Phone Number IIMS NA * [...] paracentral involvement, stable. Danial Jeffries M.D., Ph.D. OPH VISUAL F IELD Performing Organization Address [facility] Co de Phone Number OPHTHALMOLOGY IMAGING EXAM [...] arcuate, stable interval. Danial Jeffries M.D., Ph.D. 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
--- OUTSIDE RECORDS SUMMARY | 2024-01-20 14:28 | XMS_ITS | Encounter Summary ---
Author Organization [facility] Address [address] [place] [address] Care Team Providers Care Hydraulic Technician Name Role Phone Elsewhere, Pcp Primary Care Provider Unavailabl e Encounter Details Date Type Department Care Team (Late st Contact Info) Description 08/19/2017 Historical Ophthalmology [facility] Dahiana Saenz M.D. [address] [address] Social History Tobacco Use Types [...] High myope CDM Reports - EYEGEN Id: [id number] Status: Fnl documented in this encounter Plan [...] documented as of this encounter Care Teams Hydraulic Technician Relationship Specialty Start Date End Date Elsewhere, Pcp PCP - General Internal Medicine 04/20/22 documented as of this encounter
--- OUTSIDE RECORDS SUMMARY | 2024-01-20 14:28 | XMS_ITS ---
Author Organization [facility] Address [address] [place] [address] Care Team Providers Care Boss Miner Name Role Phone Unavailable Unavailable Unavailable Surgery Details Not on file Complications Check Surgery Details section. Procedure Estimated Blood Loss Check Surgery Details section. Procedure Findings Check Surgery Details section. Procedure Specimens Taken Check Surgery Details section.
--- OUTSIDE RECORDS SUMMARY | 2024-01-20 14:28 | XMS_ITS | Encounter Summary ---
Author Organization [facility] Address [address] [place] [address] Care Team Providers Care Mortgage Servicing Specialist Name Role Phone Elsewhere, Pcp Primary Care Provider Unavailabl e Encounter Details Date Type Department Care Team (Late st Contact Info) Description 07/26/2017 Historical Ophthalmology RST OPH Dahiana Saenz M.D. [address] [address] Social History Tobacco Use Types [...] of 17; 23 2-3 weeks ago; in [place], [place]. IMPRESSION / REPORT / PLAN #1 [...] High myope CDM Reports - EYEGEN Id: [id number] Status: Fnl documented in this encounter Plan [...] documented as of this encounter Care Teams Mortgage Servicing Specialist Relationship Specialty Start Date End Date Elsewhere, Pcp PCP - General Internal Medicine 04/20/22 documented as of this encounter
--- OUTSIDE RECORDS SUMMARY | 2024-01-20 14:28 | XMS_ITS | Encounter Summary ---
Author Organization [facility] Address [address] [place] [address] Care Team Providers Care Ezpawn Sales And Lending Team Member Name Role Phone Elsewhere, Pcp Primary Care Provider Unavailabl e Encounter Details Date Type Department Care Team (Latest Contact Info) Description 01/04/2024 7:30 AM CDT Ancillary Procedure Department of Ophthalmology in [place], [place] [address] [place] [address] Danial Jeffries M.D., Ph.D. [address] [place] [phone] Primary Open-Angle Glaucoma Severe Stage Bilateral Social [...] often do you attend chur ch or adventism services? 1 to 4 times per year 07/09/2019 Do you belong to any clubs o r organizations such as buddhist groups, unions, fraternal or athletic groups, or [...] Less than monthly 07/09/2019 [facility] - Occupational Stress Questionnaire Answer Date Recorded [...] Bilateral documented in this encounter Care Teams [employer] Team Member Relationship Specialty Start Date End Date Elsewhere, Pcp PCP - General Internal Medicine 04/20/22 documented as of this encounter
--- OUTSIDE RECORDS SUMMARY | 2024-01-20 14:28 | XMS_ITS | Encounter Summary ---
Author Organization [facility] Address [address] [place] [address] Care Team Providers Care Automotive Paint Technician Name Role Phone Elsewhere, Pcp Primary Care Provider Unavailabl e Encounter Details Date Type Department Care Team (Latest Contact Info) Description 01/04/2024 9:00 AM CDT Ancillary Procedure Department of Ophthalmology in [place], [place] [address] [place] [address] Danial Jeffries M.D., Ph.D. [address] [place] [phone] Primary Open-Angle Glaucoma Severe Stage Bilateral Social [...] often do you attend chur ch or zoroastrianism services? 1 to 4 times per year 07/09/2019 Do you belong to any clubs o r organizations such as moravian groups, unions, fraternal or athletic groups, or [...] on one occasion? Less than monthly 07/09/2019 [facility] - Occupational Stress Questionnaire Answer [...] Bilateral documented in this encounter Results * Optical Coherence Tomography - Optic Nerve - OU - Both Eyes (01/04/2024 8:49 AM CDT) Narrative OPHTHALMOLOGY IMAGING EXAM - 01/04/2024 8:57 AM CDT OCT device used was [employer] . Notes DH Right eye - good quality. Stable superior thinning, increased inftemp thinning Left eye - good quality. Stable inferior thinning, increased suptemp thinning Danial Jeffries M.D., Ph.D. OPHTH TOMOGRAP HY OPHTHALMOLOGY IMAGING EXAM documented in this encounter Visit Diagnoses Diagnosis Primary Open-Angle Glaucoma Severe Stage Bilateral documented in this encounter Care Teams Automotive Paint Technician Relationship Specialty Start Date End Date Elsewhere, Pcp PCP - General Internal Medicine 04/20/22 documented as of this encounter
--- OUTSIDE RECORDS SUMMARY | 2024-01-20 14:28 | XMS_ITS | Encounter Summary ---
Author Organization [facility] Address [address] [place] [address] Care Team Providers Care Finishing Wire Sawyer Name Role Phone Elsewhere, Pcp Primary Care Provider Unavailabl e Encounter Details Date Type Department Care Team (Late st Contact Info) Description 01/04/2024 8:45 AM CDT Ancillary Procedure [...] often do you attend chur ch or yazdanism services? 1 to 4 times per year 07/09/2019 Do you belong to any clubs o r organizations such as episcopal groups, unions, fraternal or athletic groups, or [...] on one occasion? Less than monthly 07/09/2019 [facility] - Occupational Stress Questionnaire Answer Date [...] Diagnosis Comments OPHTHALMOLOGY IMAGE EXAM Routine 01/04/2024 8:45 AM CDT documented in this encounter Results * Optical Coherence Tomography (OCT)-Ophthalmology Image Exam (01/04/2024 8:45 AM CDT) 01/04/2024 8:43 AM CDT Narrative IIMS - [...] on filedocumented in this encounter Care Teams Finishing Wire Sawyer Relationship Specialty Start Date End Date Elsewhere, Pcp PCP - General Internal Medicine 04/20/22 documented as of this encounter
--- OUTSIDE RECORDS SUMMARY | 2024-01-20 14:28 | XMS_ITS | Encounter Summary ---
Author Organization [facility] Address [address] [place] [address] Care Team Providers Care Dental Patient Coordinator Name Role Phone Elsewhere, Pcp Primary Care Provider Unavailabl e Encounter Details Date Type Department Care Team (Late st Contact Info) Description 01/04/2024 5:05 AM CDT Ancillary Procedure Department [...] often do you attend chur ch or yazidism services? 1 to 4 times per year [...] on one occasion? Less than monthly 07/09/2019 [facility] - Occupational Stress Questionnaire Answer Date Recorded [...] Diagnosis Comments OPHTHALMOLOGY IMAGE EXAM Routine 01/04/2024 5:05 AM CDT documented in this encounter Results * Visual Ariza (VF)-Ophthalmology Image Exam (01/04/2024 5:05 AM CDT) 01/04/2024 5:02 AM CDT Narrative IIMS - 01/04/2024 7:23 AM CDT This order has been created and auto-finalized to support the import of images acquired without order. The clinical documentation to support these images can be found on the encounter that produced images. Provider Not In System IMG NON RAD IMAGI NG PROCEDURES IIMS NA documented in this encounter Visit Diagnoses Not on filedocumented in this encounter Care Teams Dental Patient Coordinator Relationship Specialty Start Date End Date Elsewhere, Pcp PCP - General Internal Medicine 04/20/22 documented as of this encounter
--- OUTSIDE RECORDS SUMMARY | 2024-01-20 14:28 | XMS_ITS | Encounter Summary ---
Author Organization [facility] Address [address] [place] [address] Care Team Providers Care Carburetor Repairer Name Role Phone Elsewhere, Pcp Primary Care Provider Unavailabl e Encounter Details Date Type Department Care Team (Late st Contact Info) Description 09/01/2017 Historical Ophthalmology RST OPH Danial Jeffries M.D., Ph.D. [address] [place] [phone] Social History Tobacco Use Types Packs/Day Years [...] Document Viewer. CDM Reports - EYEPO Id: [id number] Status: Fnl documented in this encounter Plan [...] documented as of this encounter Care Teams Carburetor Repairer Relationship Specialty Start Date End Date Elsewhere, Pcp PCP - General Internal Medicine 04/20/22 documented as of this encounter
--- OUTSIDE RECORDS SUMMARY | 2024-01-20 14:29 | XMS_ITS | Encounter Summary ---
Author Organization [facility] Address [address] [place] [address] Care Team Providers Care Barrow Worker Name Role Phone Elsewhere, Pcp Primary Care Provider Unavailabl e Encounter Details Date Type Department Care Team (Late st Contact Info) Description 11/10/2016 Historical Ophthalmology RST OPH Dahiana Saenz M.D. [address] [phone] Social History Tobacco Use Types [...] eyes Patient has monthly IOP checks locally ([place]) return in 4 months with VF 10-2 left eye and OCT #2 High myope s/p LASIK in 2000 DIAGNOSIS #1 Primary open angle glaucoma #2 High myope CDM Reports - EYEGEN Id: [id number] Status: Fnl documented in this encounter Plan [...] documented as of this encounter Care Teams Barrow Worker Relationship Specialty Start Date End Date Elsewhere, Pcp PCP - General Internal Medicine 04/20/22 documented as of this encounter
--- OUTSIDE RECORDS SUMMARY | 2024-01-20 14:29 | XMS_ITS | Encounter Summary ---
Author Organization [facility] Address [address] [place] [address] Care Team Providers Care Lost And Found Clerk Name Role Phone Elsewhere, Pcp Primary Care Provider Unavailabl e Encounter Details Date Type Department Care Team (Late st Contact Info) Description 08/29/2015 Historical Ophthalmology RST OPH Dahiana Saenz M.D. [address] [phone] Social History Tobacco Use Types [...] glaucoma #2 High myope CDM Reports [facility] Id: [id number] Status: Fnl documented in this encounter Plan [...] documented as of this encounter Care Teams Lost And Found Clerk Relationship Specialty Start Date End Date Elsewhere, Pcp PCP - General Internal Medicine 04/20/22 documented as of this encounter
--- OUTSIDE RECORDS SUMMARY | 2024-01-20 14:29 | XMS_ITS | Clinical Summary ---
Author Organization [email or web address] Address [place], [place] [address] Care Team Providers Care Technology Development Intern Name Role Phone Pcp, No Primary Care Provider Unavailabl e Allergies No known active allergies Medications Medication Sig Dispensed Refills Start Date End Date Status Fggt-Egkn-RDX#1-C-Grady- Refugio-Bor (OSTEO BI-FLEX) 750-625-30 mg Tab Take [...] Diagnosed Date Controlled substance agreement signed 03/18/2017 Overview (03/18/2017): Receives #30 clonazepam 1 mg daily for RLS. CSA signed 03/18/17. Hyperlipidemia LDL goal <130 04/10/2015 Routine adult health maintenance 10/09/2014 Overview (02/23/2017): Colonoscopy 09/2014 inflammatory polyp repeat in 5 [...] Body Mass Index 28.8 03/18/2017 8:13 AM PULMONOLOGIST INTENSIVIST Plan of Treatment Health Maintenance Due Date [...] 04/09/2015, Additional history exists COVID-19 vaccine series (2022- season) 2024 10/13/2021, 05/21/2021, 07/29/2020, Additional history exists Influenza for age 65+ 01/01/2024 01/19/2017 , 01/27/2016, 04/15/2015, Additional history exists Colonoscopy through age 75 10/08/202410/08, 10/08/2014, 10/30/2004 (Completed outside of [facility]) Tdap Completed 05/28/2005 Hepatitis C screening [...] 12:16 PM CDT XR MAMMO BILAT SCREENING [[id number]] CLINICAL HISTORY: ??This is an asymptomatic 60 y.o. patient. INDICATION FOR EXAM: Mammogram Screening. TECHNIQUE: CC & MLO views were obtained. ??This digital study was evaluated with the assistance of Computer-Aided Detection. COMPARISON FILMS: Yes 07/25/14 [facility] 07/18/13 [facility] FINDINGS: ??Mammographically, the breast tissue has scattered fibroglandular densities. ??No suspicious masses or microcalcifications. ?? Benign appearing calcifications within right breast and Benign appearing asymmetry within right breast. Darlin Stanley MD MAMMO * LIPID PANEL W REFLEX MEASURED LDL (09/09/2016 8:15 AM CDT) CHOLESTEROL,TOTAL 167 100 - 199 mg/dL 09/09/2016 1:33 PM CDT [facility] TRIGLYCERIDES 92 <150 mg/dL 09/09/2016 1:33 PM CDT [facility] HDL CHOLESTEROL 47 >40 mg/dL 7 1:33 PM CDT [facility] NON-HDL CHOLESTEROL 120 <145 mg/dl 09/09/2016 1:33 PM CDT [facility] CHOL/HDL RATIO 3.55 <4.50 09/09/2016 1:33 PM CDT [facility] LDL CHOLESTEROL 102 <=130 mg/dL 09/09/2016 1:33 PM T [facility] PATIENT STATUS FASTING 09/09/2016 1:[address] [facility] Blood BLOOD SPECIMEN / Unknown Venipuncture / Unknown 09/09/2016 8:15 AM CDT 09/09/2016 8:15 AM CDT Darlin Stanley MD CHEMISTRY [facility] [address] [place] [address], [facility] [address] [place] [address], * XR DXA BONE DENSITY 2 SITES [...] 8:52 AM CDT) ANTI HCV Non-reacti ve [facility] Blood specimen (specimen) BLOOD SPECIMEN / Unknown 08/27/2011 8:52 AM CDT 08/27/2011 8:43 AM CDT Eric Mae MD SEND OUTS [facility]ORY [place]NAL ZIP [address] [place] [address] from Last 3 Months or Most Recently Relevant to Health Maintenance Advance Directives Documents on File Type Date Recorded Patient Certified Surgical Assistant Expl anation Healthcare Directive 04/29/2011 12:00 AM ADVANCE DIRECTIVE Healthcare Directive 04/10/2007 HEALTH CARE DIRECTIVE, [facility], 04/10/2007 Healthcare Directive 03/20/2007 12:00 AM ADVANCED DIRECTIVE Healthcare Directive 02/22/2007 12:00 AM ADVANCE DIRECTIVE Care Teams Technology Development Intern Relationship Specialty Start Date End Date Pcp, No . PCP - General 06/15/17
--- OUTSIDE RECORDS SUMMARY | 2024-01-20 14:29 | XMS_ITS | Encounter Summary ---
Author Organization [facility] Address [address] [place] [address] Care Team Providers Care Biofuels Research Scientist Name Role Phone Elsewhere, Pcp Primary Care Provider Unavailabl e Encounter Details Date Type Department Care Team (Late st Contact Info) Description 08/18/2016 Historical Ophthalmology RST OPH Dahiana Saenz M.D. [address] [phone] Social History Tobacco Use Types [...] High myope CDM Reports - EYEGEN Id: [id number] Status: Fnl documented in this encounter Plan [...] documented as of this encounter Care Teams Biofuels Research Scientist Relationship Specialty Start Date End Date Elsewhere, Pcp PCP - General Internal Medicine 04/20/22 documented as of this encounter
--- OUTSIDE RECORDS SUMMARY | 2024-01-20 14:29 | XMS_ITS | Encounter Summary ---
Author Organization [facility] Address [address] [place] [address] Care Team Providers Care Lead Retail Sales Associate Name Role Phone Elsewhere, Pcp Primary Care Provider Unavailabl e Encounter Details Date Type Department Care Team (Late st Contact Info) Description 08/13/2015 Historical Ophthalmology RST OPH Dahiana Saenz M.D. [address] [phone] Social History Tobacco Use Types [...] glaucoma #2 High myope CD[facility] Id: [id number] Status: Fnl documented in this encounter Plan [...] documented as of this encounter Care Teams Lead Retail Sales Associate Relationship Specialty Start Date End Date Elsewhere, Pcp PCP - General Internal Medicine 04/20/22 documented as of this encounter
--- OUTSIDE RECORDS SUMMARY | 2024-01-20 14:29 | XMS_ITS | Encounter Summary ---
Author Organization [facility] Address [address] [place] [address] Care Team Providers Care Workday Financials Consultant Name Role Phone Elsewhere, Pcp Primary Care Provider Unavailabl e Encounter Details Date Type Department Care Team (Late st Contact Info) Description 06/14/2017 Historical Ophthalmology RST OPH Elsie Garcia O.D. [address] [place] [address] Social History Tobacco Use Types Packs/Day Years [...] High myope CDM Reports - EYEGEN Id: [id number] Status: Fnl documented in this encounter Plan [...] documented as of this encounter Care Teams Workday Financials Consultant Relationship Specialty Start Date End Date Elsewhere, Pcp PCP - General Internal Medicine 04/20/22 documented as of this encounter
--- OUTSIDE RECORDS SUMMARY | 2024-01-20 14:29 | XMS_ITS | Encounter Summary ---
Author Organization [facility] Address [address] [place] [address] Care Team Providers Care Production Grip Name Role Phone Elsewhere, Pcp Primary Care Provider Unavailabl e Encounter Details Date Type Department Care Team (Late st Contact Info) Description 11/20/2015 Historical Ophthalmology RST OPH Dahiana Saenz M.D. [address] [phone] Social History Tobacco Use Types [...] High myope CDM Reports - EYEGEN Id: [id number] Status: Fnl documented in this encounter Plan [...] documented as of this encounter Care Teams Production Grip Relationship Specialty Start Date End Date Elsewhere, Pcp PCP - General Internal Medicine 04/20/22 documented as of this encounter
--- OUTSIDE RECORDS SUMMARY | 2024-01-20 14:29 | XMS_ITS | Encounter Summary ---
Author Organization [facility] Address [address] [place] [address] Care Team Providers Care Gear Generator Set Up Operator Name Role Phone Elsewhere, Pcp Primary Care Provider Unavailabl e Encounter Details Date Type Department Care Team (Late st Contact Info) Description 03/31/2016 Historical Ophthalmology RST OPH Dahiana Saenz M.D. [address] [phone] Social History Tobacco Use Types [...] glaucoma #2 High myope CDM Reports - [facility] Id: [id number] Status: Fnl documented in this encounter Plan [...] documented as of this encounter Care Teams Gear Generator Set Up Operator Relationship Specialty Start Date End Date Elsewhere, Pcp PCP - General Internal Medicine 04/20/22 documented as of this encounter
== END 2024-01-20 14:27 | disposition home or self-care (01) ==
LOC: NFLDREF 14:26
PROVIDERS: PCP Family Medicine; Visit Provider Family Medicine
DX: Z01.818 Encounter for other preprocedural examination (principal); I10 Essential (primary) hypertension
CPT/HCPCS: 80048

== ENCOUNTER 2024-01-23 09:30 | Day surgery (SDC) | payer MEDICARE, SELFPAY ==
--- OUTSIDE RECORDS SUMMARY | 2024-01-23 09:36 | XMS_ITS | Data Portability ---
Author Organization [place] [facility] [employer] Address [address] [place] [address] Assessment Encounter Date Assessment Date Assessment LastModified by Organization Details LastModified Time 08/04/2022 08/04/2022 Informed the patient at this time her diagnosis as detailed down below. The patient was informed of my recommendation of undergoing a phenol and alcohol procedure to the medial border of the right Hallux, however I recommended we wait until she returns from [place]. The patient was agreeable to this and we will re appoint this patient after [place] for the procedure. vishal Not available 08/04/2022 [...] Name and Address Organization Details Recorded Time [address] Ann Bell, DPM [address] [place], [phone], [facility] 09/03/2022 10:27:57 [...] Updated DateTime 08/04/2022 170.18 cm 28.2 kg/m2 42236.63 g Sarah Diana [place] - [facility] 08/04/2022 09:58:33 Social History None recorded. Functional Status None recorded. Mental Status None recorded. Family History Nothing Reported. Medical History No medical history recorded. Gynecological HistoryNo gynecological history recorded. Obstetrics History GPAL:G 0 P 0 0 0 0 Past Encounters Encounter ID Performer Location Encounter Start Date Encounter Closed Date Diagnosis/Indication Diagnosis SNOMED-CT Code Diagnosis ICD10 Code [id number] Eliel Bell, [facility] Office [address] [place] [address] [address] [place] [address] 08/04/2022 09:57:48 08/05/2022 09:57:00 Ingrowing nail 185301390 L60.0 [id number] Eliel Bell, [facility] Office [facility] [address] [place] [address] 09/03/2022 09:48:56 09/03/2022 11:28:28 Ingrowing nail [id number] L60.0 [id number] Eliel Bell, [facility] Office [address] [place] [address] [address] [place] [address] 09/17/2022 10:05:12 09/20/2022 10:20:21 Ingrowing nail [id number] L60.0 Health Concerns Section Related Observation LastModified by Organization Detai ls LastModified Time None Recorded Concern Status LastModified by Organization Details LastModified Time None Recorded Advance Directives Directive None Recorded Payers Encounter Date Sequence Insurance Name Policy Number Policy [place]itting[place] Covered Member ID [place]itting[place] Member ID Guarantor Name 08/04/2022 1 MEDICARE [facility]: [employer] Kate Ed Nordhausen [id number] Kate K Lylahausen 08/04/2022 2 [employer] HE[employer] OPTIONS (MEDICARE SUPPLEMENT) Kate Geronimo [id number] Kate K Nordhausen 09/03/2022 1 [place] [employer] Kate K Nordhausen [id number] Kate K Nordhausen 09/03/2022 2 [employer] HE[employer]CARE OPTIONS (MEDICARE SUPPLEMENT) Kate Silvanoen [id number] Kate K Nordhausen 09/17/2022 1 [place] [employer] Kate K Nordhausen [id number] Kate K Nordhausen 09/17/2022 2 [employer] HE[employer] OPTIONS (MEDICARE SUPPLEMENT) Kate Lylahausen [id number] Kate K Nordhausen Notes Date Note Type Note Provider Name [...] Patient mentions that she is going to [facility] for a few weeks and is interested in treatment options. Eliel Bell DPM [address] [place] [address], [phone], [facility] 08/04/2022 10:16:37 09/03/2022 text/html HPI Notes: Hao chavez is a 66 year old female established patient who presents today for a phenol and alcohol procedure to the right Hallux nail. Patient was previously informed about the procedure on 08/04/2022 and was instructed to wait until she was back from her [place] vacation. Patient denies any changes to her medical history since last being seen. Eliel Bell DPM [address] [place] [address], [phone], [facility] 09/03/2022 10:28:22 [...] noticed significant symptom reduction. Eliel Bell DPM [address] [place] [address], [phone], [facility] 09/17/2022 10:39:29 OBGyn Episode No OBEpisode recorded.
--- OUTSIDE RECORDS SUMMARY | 2024-01-23 09:36 | XMS_ITS | Encounter Summary ---
Author Organization [facility] Address [address] [place] [address] Care Team Providers Care Dairy Husbandman Name Role Phone Elsewhere, Pcp Primary Care [...] often do you attend chur ch or rastafari services? 1 to 4 times per year 07/09/2019 Do you belong to any clubs o r organizations such as latter day groups, unions, fraternal or athletic groups, or [...] on one occasion? Less than monthly 07/09/2019 [facility] - Occupational Stress Questionnaire Answer Date [...] on filedocumented in this encounter Care Teams Dairy Husbandman Relationship Specialty Start Date End Date Elsewhere, Pcp PCP - General Internal Medicine 04/20/22 documented as of this encounter
--- OUTSIDE RECORDS SUMMARY | 2024-01-23 09:36 | XMS_ITS | Encounter Summary ---
Author Organization [facility] Address [address] [place] [address] Care Team Providers Care Private Sector Executive Name Role Phone Elsewhere, Pcp Primary Care Provider Unavailabl e Encounter Details Date Type Department Care Team (Latest Contact Info) Description 01/04/2024 9:00 AM CDT Ancillary Procedure Department of Ophthalmology in [place], [place] [address] [place] [address] Danial Jeffries M.D., Ph.D. [address] [place] [phone] Primary Open-Angle Glaucoma Severe Stage Bilateral Social [...] any clubs o r organizations such as evangelical groups, unions, fraternal or athletic groups, or [...] monthly 07/09/2019 [facility] - Occupational Stress Questionnaire Answer Date [...] 8:57 AM CDT OCT device used was [employer] . Notes DH Right eye - good quality. Stable superior thinning, increased inftemp thinning Left eye - good quality. Stable inferior thinning, increased suptemp thinning Danial Jeffries M.D., Ph.D. OPHTH TOMOGRAP HY OPHTHALMOLOGY IMAGING EXAM documented in this encounter Visit Diagnoses Diagnosis Primary Open-Angle Glaucoma Severe Stage Bilateral documented in this encounter Care Teams Private Sector Executive Relationship Specialty Start Date End Date Elsewhere, Pcp PCP - General Internal Medicine 04/20/22 documented as of this encounter
--- OUTSIDE RECORDS SUMMARY | 2024-01-23 09:36 | XMS_ITS | Encounter Summary ---
Author Organization [facility] Address [address] [place] [address] Care Team Providers Care Slot Floor Supervisor Name Role Phone Elsewhere, Pcp Primary Care Provider Unavailabl e Encounter Details Date Type Department Care Team (Latest Contact Info) Description 01/04/2024 7:30 AM CDT Ancillary Procedure Department of Ophthalmology in [place], [place] [address] [place] [address] Danial Jeffries M.D., Ph.D. [address] [place] [phone] Primary Open-Angle Glaucoma Severe Stage Bilateral Social [...] often do you attend chur ch or denominational services? 1 to 4 times per year [...] Less than monthly 07/09/2019 [facility] [...] Bilateral documented in this encounter Care Teams Slot Floor Supervisor Relationship Specialty Start Date End Date Elsewhere, Pcp PCP - General Internal Medicine 04/20/22 documented as of this encounter
--- OUTSIDE RECORDS SUMMARY | 2024-01-23 09:36 | XMS_ITS | Encounter Summary ---
Author Organization [facility] Address [address] [place] [address] Care Team Providers Care Registrar College Or University Name Role Phone Elsewhere, Pcp Primary Care [...] often do you attend chur ch or mormonism services? 1 to 4 times per year 07/09/2019 Do you belong to any clubs o r organizations such as congregation groups, unions, fraternal or athletic groups, or [...] on one occasion? Less than monthly 07/09/2019 [facility] - Occupational Stress Questionnaire Answer Date [...] on filedocumented in this encounter Care Teams Registrar College Or University Relationship Specialty Start Date End Date Elsewhere, Pcp PCP - General Internal Medicine 04/20/22 documented as of this encounter
--- OUTSIDE RECORDS SUMMARY | 2024-01-23 09:36 | XMS_ITS ---
Author Organization [facility] Address [address] [place] [address] Care Team Providers Care Geriatric Physician Name Role Phone Unavailable Unavailable Unavailable Surgery Details Not on file Complications Check Surgery Details section. Procedure Estimated Blood Loss Check Surgery Details section. Procedure Findings Check Surgery Details section. Procedure Specimens Taken Check Surgery Details section.
--- OUTSIDE RECORDS SUMMARY | 2024-01-23 09:36 | XMS_ITS | Clinical Summary ---
Author Organization [facility] Address [address] [place] [address] Care Team Providers Care Sample Washer Name Role Phone Elsewhere, Pcp Primary Care Provider Unavailabl e Source Comments Patient records contain information from all sites at [facility]. For routine questions regarding patient records, call [phone] during business hours, M-F 8:00 AM - 5:00 PM Central Time. 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 Primary Open-Angle Glaucoma Severe Stage Bilateral (Primary Dx); Presence Of Intraocular Lens; Opacity Lens Posterior Capsule; Dry Eye Syndrome Bilateral; Ptosis Eyelid Left 01/04/2024 9:00 AM CDT Ancillary Procedure Department of Ophthalmology in [address] [phone] Danial Jeffries M.D., Ph.D. Primary Open-Angle Glaucoma Severe Stage Bilateral 01/04/2024 8:45 AM CDT Ancillary Procedure Department of Ophthalmology 01/04/2024 8:30 AM CDT Ancillary Procedure Department of Ophthalmology in [place], [place] [address] [place] [phone] Danial Jeffries M.D., Ph.D. Primary Open-Angle Glaucoma Severe Stage Bilateral 01/04/2024 7:30 AM CDT Ancillary Procedure Department of Ophthalmology in [place], [place] [address] [place] [address] Danial Jeffries M.D., Ph.D. Primary Open-Angle Glaucoma [...] any clubs o r organizations such as yarsanism groups, unions, fraternal or athletic groups, or [...] on one occasion? Less than monthly 07/09/2019 [facility] [place] of Occupat ional Health - Occupational Stress [...] T Respiratory Rate 15 04/20/2022 11:10 AM CARD PLAYER Oxygen Saturation 96% 04/20/2022 11:10 AM CARD PLAYER Inhaled Oxygen Concentration - - Weight 82.1 [...] Fall Risk Screen (Annual) 05/02/2023 COVID-19 Vaccine (2023-2 5 season) 2024 05/04/2023, 10/13/2021, 05/21/2021, Additional history exists Office Visit for Blood Press ure Check / Re-check 01/21/2024 01/20/2023 Influenza Vaccine (#1) 2024 3, 02/24/2022, 03/25/2021, Additional history exists DTaP,Tdap,and Td Vaccines (4 - Td or Tdap) 02/03/2030 02/04/2020, 05/14/2009, 05/28/2005 Pneumococcal vaccine (65+ years) Completed 05/11/19, 10/17/2020 Cervical Cancer Screening Discontinued 2023, 10/03/2019, 08/01/2018 Medical Devices Implanted Type Area Insurance Processing Clerk Device Identifier Shelf Expiration Date Model / Serial / Lot Grft Crn 9 - [id number] - [id number] Implanted:Qty : 1 on 04/20/2022 by Danial Jeffries M.D., Ph.D. at [facility]/[place] Bone or Tissue Left: Eye [employer] (Prev. Tissue [employer]) 08/11/2023 [id number] / [id number] / Hardware E.G. Pins/Screws/R ods-08/24/1989 Implanted: (Quantity not on file) Hardware e.g. pins/screws /rods Right: Shoulder Agustín Saldana 350 - [id number] - [id number] Implanted:Qty : 1 on 04/20/2022 by Danial Jeffries M.D., Ph.D. at [facility] Ocular (Eye) Implant Left: Eye [employer] (Previously [employer]) 10/21/2023 [id number] / [id number] / Lens Acr Sa60at Ant +18.5d - [id number] - [id number] Implanted:Qty : 1 on 07/03/2019 by Danial Jeffries M.D., Ph.D. at [facility] Ocular Lens Right: Eye [employer] 01/30/2024 SA60AT.18 5 / [id number] / Lens Acr Sa60at Ant +20.5d - [id number] - [id number] Implanted:Qty : 1 on 09/26/2019 by Danial Jeffries M.D., Ph.D. at [facility] Ocular Lens [employer] 01/30/2024 SA60AT.20 5 / [id number] / Procedures Procedure Name Priority Date/Time [...] Ph.D. OPHTH TOMOGRAP HY Performing Organization Address [facility] Co de Phone Number [...] RAD IMAGI NG PROCEDURES Performing Organization Address [facility] Co de Phone Number [...] OPHTH VISUAL F IELD Performing Organization Address [facility] Co de Phone Number [...] OPHTH VISUAL F IELD Performing Organization Address [facility] Co de Phone Number OPHTHALMOLOGY IMAGING EXAM from Last 3 Months Advance Directives For more information, please contact: [phone] Documents on File Type Date Recorded Patient Director Business Travel Expl anation Advance Directives 05/20/2022 8:59 AM INVA LID Care Teams Sample Washer Relationship Specialty Start Date End Date Elsewhere, Pcp PCP - General Internal Medicine 04/20/22
--- OUTSIDE RECORDS SUMMARY | 2024-01-23 09:36 | XMS_ITS | Encounter Summary ---
Author Organization [facility] Address [address] [place] [address] Care Team Providers Care Chief Pharmacist Name Role Phone Elsewhere, Pcp Primary Care Provider Unavailabl e Encounter Details Date Type Department Care Team (Latest Contact Info) Description 01/04/2024 8:30 AM CDT Ancillary Procedure Department of Ophthalmology in [place], [place] [address] [place] [address] Danial Jeffries M.D., Ph.D. [address] [place] [phone] Primary Open-Angle Glaucoma Severe Stage Bilateral Social [...] often do you attend chur ch or moravian services? 1 to 4 times per year 07/09/2019 Do you belong to any clubs o r organizations such as judaism groups, unions, fraternal or athletic groups, or [...] on one occasion? Less than monthly 07/09/2019 [facility] - Occupational Stress Questionnaire Answer [...] Bilateral documented in this encounter Care Teams Chief Pharmacist Relationship Specialty Start Date End Date Elsewhere, Pcp PCP - General Internal Medicine 04/20/22 documented as of this encounter
--- OUTSIDE RECORDS SUMMARY | 2024-01-23 09:36 | XMS_ITS | Encounter Summary ---
Author Organization [facility] Address [address] [place] [address] Care Team Providers Care Abrasives Sales Representative Name Role Phone Elsewhere, Pcp Primary Care Provider Unavailabl e Reason for Referral * Outpatient (Routine) - Authorized Specialty Diagnoses / Procedures Referred By Pepper collins Referred To Contact Ophthalmology Maria Del Carmen Resendez O.D. [address] [place] [phone] Danial Jeffries M.D., Ph.D. [address] [place] [phone] Referral ID Status Reason Start Date Expiration Date V isits Requested Visits Authorized [id number] Authorized 01/04/2024 07/05/2025 1 1 Scheduling Instructions GWR with glc testing Reason for Visit * Reason Comments Glaucoma * Outpatient (Routine) - Closed Specialty Diagnoses / Procedures Referred By Contvincenzo t Referred To Contact Ophthalmology Danial Jeffries M.D., Ph.D. [address] [place] [phone] [facility] Referral ID Status Reason Start Date Expiration Date Visits Re quested Visits Authorized [id number] Closed 07/06/2023 01/04/2025 1 1 Encounter Details Date Type Department Care Team (Latest Contact Info) Description 01/04/2024 9:30 AM CDT Office Visit Department of Ophthalmology in [place], [place] [address] [place] [address] Maria Del Carmen Resendez O.D. 200 [place] [phone] Primary Open-Angle Glaucoma Severe Stage Bilateral (Primary [...] week 07/09/2019 How often do you attend [facility] or latter day services? 1 to 4 times per year [...] on one occasion? Less than monthly 07/09/2019 [facility] [place] of Occupat ional Health - Occupational Stress [...] Left documented in this encounter Care Teams Abrasives Sales Representative Relationship Specialty Start Date End Date Elsewhere, Pcp PCP - General Internal Medicine 04/20/22 documented as of this encounter
--- OUTSIDE RECORDS SUMMARY | 2024-01-23 09:36 | XMS_ITS | Encounter Summary ---
Author Organization [facility] Address [address] [place] [address] Care Team Providers Care Consumer Experience Consultant Name Role Phone Elsewhere, Pcp Primary [...] often do you attend chur ch or holiness services? 1 to 4 times per year 07/09/2019 Do you belong to any clubs o r organizations such as jewish groups, unions, fraternal or athletic groups, or [...] than monthly 07/09/2019 [facility] - Occupational Stress Questionnaire Answer [...] on filedocumented in this encounter Care Teams Consumer Experience Consultant Relationship Specialty Start Date End Date Elsewhere, Pcp PCP - General Internal Medicine 04/20/22 documented as of this encounter
--- OUTSIDE RECORDS SUMMARY | 2024-01-23 09:36 | XMS_ITS | Referral Summary ---
Author Organization [facility] Address [address] [place] [address] Care Team Providers Care Manufacturing Inspector Name Role Phone Elsewhere, Pcp Primary Care Provider Unavailabl e Source Comments Patient records contain information from all sites at [facility]. For routine questions regarding patient records, call [phone] during business hours, M-F 8:00 AM - 5:00 PM Central Time. Record requests for emergency care only can be directed to [phone] at any time.[facility] Encounters Date Type Department Care Team Description 01/04/2024 8:45 AM CDT Ancillary Procedure Department of Ophthalmology 01/04/2024 5:20 AM CDT Ancillary Procedure Department of Ophthalmology 01/04/2024 5:05 AM CDT Ancillary Procedure Department of Ophthalmology 01/04/2024 9:30 AM CDT Office Visit Department of Ophthalmology in [place], [place] [address] [place] [address] Maria Del Carmen Resendez O.D. Primary Open-Angle Glaucoma Severe Stage Bilateral (Primary Dx); Presence Of Intraocular Lens; Opacity Lens Posterior Capsule; Dry Eye Syndrome Bilateral; Ptosis Eyelid Left 01/04/2024 9:00 AM CDT Ancillary Procedure Department of Ophthalmology in [place], [place] [address] [place] [phone] Danial Jeffries M.D., Ph.D. Primary Open-Angle Glaucoma Severe Stage Bilateral 01/04/2024 8:30 AM CDT Ancillary Procedure Department of Ophthalmology in [place], [place] [address] [place] [address] Danial Jeffries M.D., Ph.D. Primary Open-Angle Glaucoma Severe Stage Bilateral 01/04/2024 7:30 AM CDT Ancillary Procedure Department of Ophthalmology in [place] [address] [address] [place] [address] Danial Jeffries M.D., Ph.D. Primary Open-Angle Glaucoma [...] (05/28/2019): Added automatically from request for surgery [id number] Age Related Nuclear Cataract Left Eye 05/28/2019 01/04/2024 Overview (09/25/2019): Added automatically from request for surgery [id number] Social History Tobacco Use Types Packs/Day Years [...] r organizations such as hinduism groups, unions, fraAirsynergy or athletic groups, or school groups? No [...] on one occasion? Less than monthly 07/09/2019 [facility] [place] of Occupat ional Health - Occupational Stress [...] T Respiratory Rate 15 04/20/2022 11:10 AM POWER ORIGINATOR Oxygen Saturation 96% 04/20/2022 11:10 AM POWER ORIGINATOR Inhaled Oxygen Concentration - - Weight 82.1 kg (181 lb) 01/20/2023 7:52 AM CDT Height 168.2 cm (5' 6.22) 01/20/2023 7:52 AM CD T Body Mass Index 29.02 01/20/2023 7:52 AM CDT Plan of Treatment Not on file Medical Devices Implanted Type Area Central Office Repairer Device Identifier Shelf Expiration Date Model / Serial / Lot Michelle Wooten 9 - [id number] - [id number] Implanted:Qty : 1 on 04/20/2022 by Danial Jeffries M.D., Ph.D. at [facility] Bone or Tissue Left: Eye [employer] (Prev. Tissue [employer]) 08/11/2023 [id number] 0 / [id number] / Hardware E.G. Pins/Screws/R ods-08/24/1989 Implanted: (Quantity not on file) Hardware e.g. pins/screws /rods Right: Shoulder Agustín Saldana 350 - [id number] - [id number] Implanted:Qty : 1 on 04/20/2022 by Danial Jeffries M.D., Ph.D. at [facility] Ocular (Eye) Implant Left: Eye [employer] (Previously [employer]) 10/21/2023 [id number] / [id number] / Lens Acr Sa60at Ant +18.5d - [id number] - [id number] Implanted:Qty : 1 on 07/03/2019 by Danial Jeffries M.D., Ph.D. at [facility] Ocular Lens Right: Eye [employer] 01/30/2024 SA60AT.18 5 / [id number] / Lens Acr Sa60at Ant +20.5d - [id number] - [id number] Implanted:Qty : 1 on 09/26/2019 by Danial Jeffries M.D., Ph.D. at [facility] Ocular Lens [employer] 01/30/2024 SA60AT.20 5 / [id number] / Procedures Procedure Name Priority Date/Time [...] Ph.D. OPHTH TOMOGRAP HY Performing Organization Address [facility] Co de Phone Number OPHTHALMOLOGY IMAGING EXAM [...] RAD IMAGI NG PROCEDURES Performing Organization Address [facility] Co de Phone Number IIMS NA * [...] OPH VISUAL F IELD Performing Organization Address [facility] Co de Phone Number OPHTHALMOLOGY IMAGING EXAM [...] arcuate, stable interval. Danial Jeffries M.D., Ph.D. [facility] VISUAL F IELD Performing Organization Address [facility] de Phone Number OPHTHALMOLOGY IMAGING EXAM from Last 3 Months Advance Directives For more information, please contact: [phone] Documents on File Type Date Recorded Patient Founding Partner Expl anation Advance Directives 05/20/2022 8:59 AM INVA LID Care Teams Manufacturing Inspector Relationship Specialty Start Date End Date Elsewhere, Pcp PCP - General Internal Medicine 04/20/22
--- OUTSIDE RECORDS SUMMARY | 2024-01-23 09:37 | XMS_ITS | Clinical Summary ---
Author Organization [facility] Address [place], [place] [address] Care Team Providers Care Scratcher Tender Name Role Phone Pcp, No Primary Care Provider Unavailabl e Allergies No known active allergies Medications Medication Sig Dispensed Refills Start Date End Date Status Xeqf-Gxfv-JMX#1-C-Grady- Refugio-Bor (OSTEO BI-FLEX) 750-625-30 mg Tab Take [...] Body Mass Index 28.8 03/18/2017 8:13 AM IMAGING SERVICES DIRECTOR Plan of Treatment Health Maintenance Due Date [...] 73 10/08/202410/08, 10/08/2014, 10/30/2004 (Completed outside of [facility]) Tdap Completed 05/28/2005 Hepatitis C screening [...] 12:16 PM CDT XR MAMMO BILAT SCREENING [[id number]] CLINICAL HISTORY: ??This is an asymptomatic 60 y.o. patient. INDICATION FOR EXAM: Mammogram Screening. TECHNIQUE: CC & MLO views were obtained. ??This digital study was evaluated with the assistance of Computer-Aided Detection. COMPARISON FILMS: Yes 07/25/14 [facility] 07/18/13 [facility] FINDINGS: ??Mammographically, the breast tissue has scattered fibroglandular densities. ??No suspicious masses or microcalcifications. ?? Benign appearing calcifications within right breast and Benign appearing asymmetry within right breast. Darlin Stanley MD MAMMO * LIPID PANEL W REFLEX MEASURED LDL (09/09/2016 8:15 AM CDT) CHOLESTEROL,TOTAL 167 100 - 199 mg/dL 09/09/2016 1:33 PM CDT [facility] TRIGLYCERIDES 92 <150 mg/dL 09/09/2016 1:33 PM CDT [facility] HDL CHOLESTEROL 47 >40 mg/dL 7 1:33 PM CDT [facility] NON-HDL CHOLESTEROL 120 <145 mg/dl 09/09/2016 1:33 PM CDT [facility] CHOL/HDL RATIO 3.55 <4.50 09/09/2016 1:33 PM CDT [facility] LDL CHOLESTEROL 102 <=130 mg/dL 09/09/2016 1:33 PM T [facility] PATIENT STATUS FASTING 09/09/2016 1:33 PM CDT [facility] Blood BLOOD SPECIMEN / Unknown Venipuncture / Unknown 09/09/2016 8:15 AM CDT 09/09/2016 8:15 AM CDT Darlin Stanley MD CHEMISTRY [facility] [address] [place] [address], [facility] [address] [place] [address], * XR DXA BONE DENSITY 2 SITES [...] 8:52 AM CDT) ANTI HCV Non-reacti ve [facility] Blood specimen (specimen) BLOOD SPECIMEN / Unknown 08/27/2011 8:52 AM CDT 08/27/2011 8:43 AM CDT Eric Mae MD SEND OUTS [facility] [place]NAL ZIP [phone] [place] [address] from Last 3 Months or Most Recently Relevant to Health Maintenance Advance Directives Documents on File Type Date Recorded Patient Production Assembly Supervisor Expl anation Healthcare Directive 04/29/2011 12:00 AM ADVANCE DIRECTIVE Healthcare Directive 04/10/2007 HEALTH CARE DIRECTIVE, [facility], 04/10/2007 Healthcare Directive 03/20/2007 12:00 AM ADVANCED DIRECTIVE Healthcare Directive 02/22/2007 12:00 AM ADVANCE DIRECTIVE Care Teams Scratcher Tender Relationship Specialty Start Date End Date Pcp, No . PCP - General 06/15/17
--- OUTSIDE RECORDS SUMMARY | 2024-01-23 09:37 | XMS_ITS | Encounter Summary ---
Author Organization [facility] Address [address] [place] [address] Care Team Providers Care Pricing/Signage Team Member Name Role Phone Elsewhere, Pcp Primary Care Provider Unavailabl e Encounter Details Date Type Department Care Team (Late st Contact Info) Description 11/20/2015 Historical Ophthalmology [facility] Dahiana Saenz M.D. [address] [address] Social History Tobacco Use Types [...] High myope CDM Reports - EYEGEN Id: [id number] Status: Fnl documented in this encounter Plan [...] documented as of this encounter Care Teams Pricing/Signage Team Member Relationship Specialty Start Date End Date Elsewhere, Pcp PCP - General Internal Medicine 04/20/22 documented as of this encounter
--- OUTSIDE RECORDS SUMMARY | 2024-01-23 09:37 | XMS_ITS | Encounter Summary ---
Author Organization [facility] Address [address] [place] [address] Care Team Providers Care Manager Books Name Role Phone Elsewhere, Pcp Primary Care Provider Unavailabl e Encounter Details Date Type Department Care Team (Late st Contact Info) Description 07/26/2017 Historical Ophthalmology [facility] Dahiana Saenz M.D. [address] [address] Social History Tobacco Use Types [...] of 17; 21 2-3 weeks ago; in [place], [place]. IMPRESSION / REPORT / PLAN #1 [...] High myope CDM Reports - EYEGEN Id: [id number] Status: Fnl documented in this encounter Plan [...] documented as of this encounter Care Teams Manager Books Relationship Specialty Start Date End Date Elsewhere, Pcp PCP - General Internal Medicine 04/20/22 documented as of this encounter
--- OUTSIDE RECORDS SUMMARY | 2024-01-23 09:37 | XMS_ITS | Encounter Summary ---
Author Organization [facility] Address [address] [place] [address] Care Team Providers Care Foundry Laborer Coreroom Name Role Phone Elsewhere, Pcp Primary Care Provider Unavailabl e Encounter Details Date Type Department Care Team (Late st Contact Info) Description 03/31/2016 Historical Ophthalmology [facility] Dahiana Saenz M.D. [address] [address] Social History Tobacco Use [...] glaucoma #2 High myope CD[facility] Id: [id number] Status: Fnl documented in this encounter Plan [...] documented as of this encounter Care Teams Foundry Laborer Coreroom Relationship Specialty Start Date End Date Elsewhere, Pcp PCP - General Internal Medicine 04/20/22 documented as of this encounter
--- OUTSIDE RECORDS SUMMARY | 2024-01-23 09:37 | XMS_ITS | Encounter Summary ---
Author Organization [facility] Address [address] [place] [address] Care Team Providers Care Hide Curer Name Role Phone Elsewhere, Pcp Primary Care Provider Unavailabl e Encounter Details Date Type Department Care Team (Late st Contact Info) Description 08/13/2015 Historical Ophthalmology RST OPH Dahiana Saenz M.D. [address] [phone] Social History Tobacco Use Types [...] glaucoma #2 High myope [facility]M Reports - [facility] Id: [id number] Status: Fnl documented in this encounter Plan [...] as of this encounter Care Teams Hide Curer Relationship Specialty Start Date End Date Elsewhere, Pcp PCP - General Internal Medicine 04/20/22 documented as of this encounter
--- OUTSIDE RECORDS SUMMARY | 2024-01-23 09:37 | XMS_ITS | Encounter Summary ---
Author Organization [facility] Address [address] [place] [address] Care Team Providers Care Building Construction Inspector Name Role Phone Elsewhere, Pcp Primary Care Provider Unavailabl e Encounter Details Date Type Department Care Team (Late st Contact Info) Description 08/29/2015 Historical Ophthalmology RST OPH Dahiana Saenz M.D. [address] [phone] Social History Tobacco Use Types [...] glaucoma #2 High myope [facility] Id: [id number] Status: Fnl documented in this encounter Plan [...] documented as of this encounter Care Teams Building Construction Inspector Relationship Specialty Start Date End Date Elsewhere, Pcp PCP - General Internal Medicine 04/20/22 documented as of this encounter
--- OUTSIDE RECORDS SUMMARY | 2024-01-23 09:37 | XMS_ITS | Encounter Summary ---
Author Organization [facility] Address [address] [place] [address] Care Team Providers Care Roll Skinner Name Role Phone Elsewhere, Pcp Primary Care Provider Unavailabl e Encounter Details Date Type Department Care Team (Late st Contact Info) Description 06/14/2017 Historical Ophthalmology RST OPH Elsie Garcia O.D. [address] [place] [address] Social History Tobacco Use Types Packs/Day Years [...] High myope CDM Reports - [facility] Id: [id number] Status: Fnl documented in this encounter Plan [...] documented as of this encounter Care Teams Roll Skinner Relationship Specialty Start Date End Date Elsewhere, Pcp PCP - General Internal Medicine 04/20/22 documented as of this encounter
--- OUTSIDE RECORDS SUMMARY | 2024-01-23 09:37 | XMS_ITS | Encounter Summary ---
Author Organization [facility] Address [address] [place] [address] Care Team Providers Care Community Youth Secretary Name Role Phone Elsewhere, Pcp Primary Care Provider Unavailabl e Encounter Details Date Type Department Care Team (Late st Contact Info) Description 08/18/2016 Historical Ophthalmology RST OPH Dahiana Saenz M.D. [address] [phone] Social History Tobacco Use Types [...] High myope CDM Reports - [facility] Id: [id number] Status: Fnl documented in this encounter Plan [...] documented as of this encounter Care Teams Community Youth Secretary Relationship Specialty Start Date End Date Elsewhere, Pcp PCP - General Internal Medicine 04/20/22 documented as of this encounter
--- OUTSIDE RECORDS SUMMARY | 2024-01-23 09:37 | XMS_ITS | Encounter Summary ---
Author Organization [facility] Address [address] [place] [address] Care Team Providers Care Washing Machine Loader Name Role Phone Elsewhere, Pcp Primary Care Provider Unavailabl e Encounter Details Date Type Department Care Team (Late st Contact Info) Description 11/10/2016 Historical Ophthalmology RST OPH Dahiana Saenz M.D. [address] [phone] Social History Tobacco Use Types [...] eyes Patient has monthly IOP checks locally ([place]) return in 4 months with VF 10-2 left eye and OCT #2 High myope s/p LASIK in 2000 DIAGNOSIS #1 Primary open angle glaucoma #2 High myope CDM Reports - [facility] Id: [id number] Status: Fnl documented in this encounter Plan [...] documented as of this encounter Care Teams Washing Machine Loader Relationship Specialty Start Date End Date Elsewhere, Pcp PCP - General Internal Medicine 04/20/22 documented as of this encounter
--- OUTSIDE RECORDS SUMMARY | 2024-01-23 09:37 | XMS_ITS | Encounter Summary ---
Author Organization [facility] Address [address] [place] [address] Care Team Providers Care Cotton Factor Name Role Phone Elsewhere, Pcp Primary Care Provider Unavailabl e Encounter Details Date Type Department Care Team (Late st Contact Info) Description 08/19/2017 Historical Ophthalmology RST OPH Dahiana Saenz M.D. [address] [place] [address] [phone] Social History Tobacco Use Types [...] High myope CDM Reports - [facility] Id: [id number] Status: Fnl documented in this encounter Plan [...] documented as of this encounter Care Teams Cotton Factor Relationship Specialty Start Date End Date Elsewhere, Pcp PCP - General Internal Medicine 04/20/22 documented as of this encounter
--- OUTSIDE RECORDS SUMMARY | 2024-01-23 09:37 | XMS_ITS | Encounter Summary ---
Author Organization [facility] Address [address] [place] [address] Care Team Providers Care Mixing Operator Name Role Phone Elsewhere, Pcp Primary Care Provider Unavailabl e Encounter Details Date Type Department Care Team (Late st Contact Info) Description 09/01/2017 Historical Ophthalmology RST OPH Danial Jeffries M.D., Ph.D. [address] [place] [phone] Social History Tobacco Use Types Packs/Day Years [...] Document Viewer. CDM Reports - [facility] Id: [id number] Status: Fnl documented in this encounter Plan [...] documented as of this encounter Care Teams Mixing Operator Relationship Specialty Start Date End Date Elsewhere, Pcp PCP - General Internal Medicine 04/20/22 documented as of this encounter
[2024-01-23 09:57] VITALS: BP 139/74; PULSE 64; RESP 16; TEMP 36.7; BMI 29.6
[2024-01-23] MEDS: LACTATED RINGERS 1000 ML 1,000 ML 100 ML IV (10:03)
[2024-01-23] MEDS: SODIUM CHLORIDE 0.9 % (FLUSH) 10 ML SYRINGE IVF (10:03)
--- NOTE | 2024-01-23 11:26 | W.PM.H&PU ---
History & Physical Update History & Physical Update H&P Reviewed and patient assessed: No changes noted
[2024-01-23] MEDS: MIDAZOLAM HCL 1 MG/ML inj IVP (11:33)
[2024-01-23] MEDS: fentaNYL 100 MCG/2 ML inj IVP (11:33)
--- NOTE | 2024-01-23 11:39 | SUR.PREOP ---
TIME?OUT:?1132 PT/RN/MDA?VERIFICATION?OF?SURGICAL?SITE Left Wrist,?PROCEDURE Axe Block,?AND?CONSENT OBTAINED?PRIOR?TO?INVASIVE?PROCEDURE.
[2024-01-23] MEDS: CEFAZOLIN 2 GM in 0.9 % SODIUM CHLORIDE Mini-bag 100 ML IVPB (11:50)
--- NOTE | 2024-01-23 11:52 | P.NB_ITS ---
Nerve Block Nerve Block Time Seen by Provider: 11:35 Date Seen: 01/23/24 Type of block requested by surgeon for post-operative analgesia: axillary Side: left Time out performed: Yes Verification of patient name: Yes Verification of date of : Yes Site marking: site marked Name of person performing procedure: Flynn Continuous monitoring Was continuous monitoring of O2 sat, B/P, satellite project site monitor, recorded every 15 minutes?: Yes Procedure Checklist: sterile prep, needles and gloves Ultrasound guided. Images saved: Yes Medications given in 5ml increments after negative aspiration: Lidocaine %: 2 mL: 20 Needle gauge: 22 Patient tolerated procedure well: Yes Additional comments: Needle noted adjacent to nerve Block Charges Block Charge (with Pro Fee): Brachial Plexus Use of Ultrasound Machine for Block: Yes- US Guidance/pain block
--- NOTE | 2024-01-23 11:53 | W.ANESCHARGE ---
Anesthesia Charges Start Date/Time Anesthesia Start Date: 01/23/24 Anesthesia Start Time: 11:42 Stop Date/Time Anesthesia Stop Date: 01/23/24 Anesthesia Stop Time: 12:40 Summary Extremes of Age - Over 70 or under 1: MDA
--- NOTE | 2024-01-23 12:20 | PM.ORPRC ---
Procedure Note Date of procedure: 01/23/24 Procedure: PREOPERATIVE DIAGNOSIS: 1. Left volar, radial wrist benign mass POSTOPERATIVE DIAGNOSIS: 1. Left volar, radial wrist benign mass PROCEDURE: 1. Left volar, radial wrist benign mass open excision SURGEON: Isidro Conley MD. CHIEF CREATIVE OFFICER: Eric Rodriguez PA-C - Of note, an assistant professor of communication was critical for this case to aid in patient positioning, tissue retraction, limb manipulation/positioning, patient safety, & closure. ANESTHESIA: Regional block plus MAC EBL: 2 mL IMPLANTS: None TOURNIQUET: 21 minutes at 225 torr COMPLICATIONS: None evident INDICATIONS: The patient is a pleasant 68-year-old female who has experienced left volar, radial wrist pain that has progressively gotten worse. History is notable for sustaining left index and long ray resections for table saw injury in the remote past. This has resulted in some other trauma to the hand and wrist region. However, this radial wrist mass/cyst has continued to grow and cause discomfort/pressure for her. Nonoperative management has been tried but unsuccessful. Given the failure of nonoperative management, and how this affects daily life, surgery was recommended. DESCRIPTION OF PROCEDURE: Following a thorough discussion of risks, benefits, and alternatives consent was obtained and the operative extremity was marked. The patient was brought to the operating room and placed supine on the operating table. No antibiotics were administered as this was planned to be a local case only. Proper time-out was performed identifying proper patient, site, and procedure. The operative extremity was prepped and draped in the appropriate sterile fashion using ChloraPrep. The limb was exsanguinated and the tourniquet inflated. An incision was made on the volar aspect of the radial left wrist longitudinally. Sharp incision through the skin, and blunt dissection through subcutaneous tissue allowed us to protect crossing neurologic structures. The FCR tendon was identified and had some low-grade partial-thickness tearing on the deep surface. The radial artery was identified and protected. The mass seemed to be scar tissue stemming from just radial to the FCR tendon. It was dense tissue. It measured approximately 12 mm cubed. We did not encounter any fluid that the cyst would otherwise typically have. The mass was sent for permanent pathology. At this stage, the tourniquet was deflated and hemostasis achieved. Closure was performed with 3-0 Monocryl. Soft dressings were applied, and the patient was awoken/transferred to the recovery room in stable condition. PLAN: 1. Encourage elevation of the operative extremity. 2. Range of motion of the operative extremity/digits as tolerated. 3. Ibuprofen, acetaminophen and/or oxycodone as needed for pain. 4. Follow up with PA visit in 12-16 days for wound check and suture removal. 5. A wrist brace was applied/provided to the left wrist.
[2024-01-23 12:38] VITALS: BP 116/66; PULSE 63; RESP 16; TEMP 36.5; O2SAT 96
--- NOTE | 2024-01-23 12:40 | W.ANESCHARGE ---
Anesthesia Charges Start Date/Time Anesthesia Start Date: 01/23/24 Anesthesia Start Time: 11:42 Stop Date/Time Anesthesia Stop Date: 01/23/24 Anesthesia Stop Time: 12:40
[2024-01-23 12:45] VITALS: BP 120/69; PULSE 70; RESP 16; O2SAT 92
[2024-01-23 13:00] VITALS: BP 125/73; PULSE 69; RESP 16; O2SAT 92
[2024-01-23 13:15] VITALS: BP 121/82; PULSE 73; RESP 16; O2SAT 92
[2024-01-23 13:30] VITALS: BP 103/62; PULSE 71; RESP 16; O2SAT 94
== END 2024-01-23 13:48 | disposition home or self-care (01) ==
LOC: OR 09:32
PROVIDERS: PCP Family Medicine; Visit Provider Orthopaedic Surgery Sports Medicine
PROC: (CPT 25111; principal; 2024-01-23 11:00)
DX: M67.432 Ganglion, left wrist (principal); G89.18 Other acute postprocedural pain
CPT/HCPCS: 25111; 01810; 64417; 76942; 88304; 99100; J0690; J1100; J2250; J2405; J2704; J3010; J7120

== ENCOUNTER 2024-06-04 07:38 | Outpatient (CLI) | payer MEDICARE, SELFPAY | END 2024-06-04 07:39 | disposition home or self-care (01) | LOC: NFLDREF 06-06 00:58 | PROVIDERS: PCP Family Medicine; Referring Provider Family Medicine; Visit Provider Family Medicine | DX: I10 Essential (primary) hypertension (principal); E78.5 Hyperlipidemia, unspecified; E55.9 Vitamin D deficiency, unspecified; M81.0 Age-related osteoporosis without current pathological fracture; G25.81 Restless legs syndrome; R73.01 Impaired fasting glucose; G89.29 Other chronic pain | CPT/HCPCS: 80053; 80061; 82306; 82728 ==

== ENCOUNTER 2024-07-12 09:58 | Outpatient (CLI) | payer MEDICARE, SELFPAY ==
--- NOTE | 2024-07-12 12:15 | CRLHL7_ITS ---
For Patients: As a result of the Century Cures Act, medical imaging exams and procedure reports are released immediately into your electronic medical record. You may view this report before your referring provider. If you have questions, please contact your health care provider. INDICATION: Swelling. TECHNIQUE: Ultrasound venous duplex lower extremity bilateral. Compression venous exam was performed using siegel-scale, color Doppler, and spectral Doppler imaging. COMPARISON: None. FINDINGS: Sonographic imaging demonstrates the common femoral, deep femoral, superficial femoral, popliteal, posterior tibial and greater saphenous veins to be fully compressible with normal color Doppler blood flow in both lower extremities. IMPRESSION: Normal bilateral lower extremity venous ultrasound, no sign of deep venous thrombosis. Dictated by John Narayan MD @ 07/12/2024 1:18:03 PM (Electronically Signed)
== END 2024-07-12 09:59 | disposition home or self-care (01) ==
LOC: US 10:00
PROVIDERS: PCP Family Medicine; Visit Provider Family Medicine
DX: M79.89 Other specified soft tissue disorders (principal)
CPT/HCPCS: 93970

== ENCOUNTER 2024-09-27 13:03 | Outpatient (CLI) | payer MEDICARE, SELFPAY ==
--- NOTE | 2024-09-27 13:20 | CRLHL7_ITS ---
For Patients: As a result of the Century Cures Act, medical imaging exams and procedure reports are released immediately into your electronic medical record. You may view this report before your referring provider. If you have questions, please contact your health care provider. INDICATION: BILATERAL SCREENING MAMMOGRAM, ASYMPTOMATIC 68 Y/O FEMALE COMPARISON: 09/05/2023, 04/24/2021, 01/31/2020 TECHNIQUE: Digital mammogram in CC and MLO projections including computer-aided detection (CAD) and tomosynthesis. BREAST COMPOSITION: The breasts are almost entirely fatty. FINDINGS: No suspicious findings. ASSESSMENT: BI-RADS 2 Benign RECOMMENDATION: Annual screening mammogram. A lay language report of this examination will be provided to the patient. Dictated by: Eric Powell MD @ 09/28/2024 13:06:00 (Electronically Signed)
== END 2024-09-27 13:04 | disposition home or self-care (01) ==
PROVIDERS: PCP Family Medicine; Visit Provider Family Medicine
DX: Z12.31 Encounter for screening mammogram for malignant neoplasm of breast (principal)
CPT/HCPCS: 77063; 77067

== ENCOUNTER 2024-12-10 07:48 | Outpatient (CLI) | payer MEDICARE, SELFPAY | END 2024-12-10 07:49 | disposition home or self-care (01) | LOC: NFLDREF 12-13 15:53 | PROVIDERS: PCP Family Medicine; Referring Provider Family Medicine; Visit Provider Family Medicine | DX: E55.9 Vitamin D deficiency, unspecified (principal); I10 Essential (primary) hypertension; R73.01 Impaired fasting glucose; E78.5 Hyperlipidemia, unspecified; G25.81 Restless legs syndrome; C44.621 Squamous cell carcinoma of skin of unspecified upper limb, including shoulder | CPT/HCPCS: 80053; 82607; 82728 ==

== ENCOUNTER 2025-01-03 08:00 | Outpatient (CLI) | payer MEDICARE, SELFPAY ==
--- NOTE | 2025-01-03 09:56 | P.ANES_ITS ---
Anesthesia Charges Start Date/Time Anesthesia Start Date: 01/03/25 Anesthesia Start Time: 09:03 Stop Date/Time Anesthesia Stop Date: 01/03/25 Anesthesia Stop Time: 09:53 Summary Extremes of Age - Over 70 or under 1: SENIOR QUALITY CONTROL INSPECTOR Coding CPT Codes CPT Codes: CRUZITO LWR INTST NDSC NOS - 46709 ([id number]) P2 - PATIENT W/MILD SYST DISEASE, QK - GERIATRIC NURSING ASSISTANT 2-4 CNCRNT ANEJoanne PROC, QX - SENIOR QUALITY CONTROL INSPECTOR SVC W/ MD MED DIRECTION Additional Codes: Summary - Extremes of Age - Over 70 or under 1: SENIOR QUALITY CONTROL INSPECTOR ([id number])
--- NOTE | 2025-01-03 09:56 | W.ANESCHARGE ---
Anesthesia Charges Start Date/Time Anesthesia Start Date: 01/03/25 Anesthesia Start Time: 09:03 Stop Date/Time Anesthesia Stop Date: 01/03/25 Anesthesia Stop Time: 09:53 Summary Extremes of Age - Over 70 or under 1: ARCHIVIST MILITARY HISTORY Coding CPT Codes CPT Codes: CRUZITO LWR INTST NDSC NOS - 22131 ([id number]) P2 - PATIENT W/MILD SYST DISEASE, QK - WEB PAGE DESIGNER 2-4 CNCRNT ANEJoanne PROC, QX - ARCHIVIST MILITARY HISTORY SVC W/ MD MED DIRECTION Additional Codes: Summary - Extremes of Age - Over 70 or under 1: ARCHIVIST MILITARY HISTORY ([id number])
--- NOTE | 2025-01-03 11:42 | P.ANES_ITS ---
Anesthesia Charges Start Date/Time Anesthesia Start Date: 01/03/25 Anesthesia Start Time: 09:03 Stop Date/Time Anesthesia Stop Date: 01/03/25 Anesthesia Stop Time: 09:53 Summary Extremes of Age - Over 70 or under 1: MDA Coding CPT Codes CPT Codes: ANES LWR INTST NDSC NOS - 32213 ([id number]) P2 - PATIENT W/MILD SYST DISEASE, QK - GROCERY STORE BAGGER 2-4 CNCRNT ANES PROC, QX - FRONT MAKER SVC W/ MD MED DIRECTION Additional Codes: Summary - Extremes of Age - Over 70 or under 1: MDA ([id number])
--- NOTE | 2025-01-03 11:42 | W.ANESCHARGE ---
Anesthesia Charges Start Date/Time Anesthesia Start Date: 01/03/25 Anesthesia Start Time: 09:03 Stop Date/Time Anesthesia Stop Date: 01/03/25 Anesthesia Stop Time: 09:53 Summary Extremes of Age - Over 70 or under 1: MDA Coding CPT Codes CPT Codes: ANES LWR INTST NDSC NOS - 20832 ([id number]) P2 - PATIENT W/MILD SYST DISEASE, QK - FITTING ROOM ATTENDANT 2-4 CNCRNT ANES PROC, QX - POOL HALL INSPECTOR SVC W/ MD MED DIRECTION Additional Codes: Summary - Extremes of Age - Over 70 or under 1: MDA ([id number])
== END 2025-01-03 08:01 | disposition home or self-care (01) ==
LOC: OP CLINIC 08:01
PROVIDERS: PCP Family Medicine; Visit Provider Surgery
DX: Z12.11 Encounter for screening for malignant neoplasm of colon (principal); K64.8 Other hemorrhoids; D12.0 Benign neoplasm of cecum; D12.2 Benign neoplasm of ascending colon; D12.3 Benign neoplasm of transverse colon; D12.8 Benign neoplasm of rectum; K63.5 Polyp of colon
CPT/HCPCS: 00811; 45385; 88305; 99100; J2704